=== PATIENT | male | born 1950 | race Two or more races ===

== ENCOUNTER 2017-04-26 17:10 | Emergency (ER) | payer MEDICARE, OTHER ==
[2017-04-26 17:32] VITALS: BP 142/79; PULSE 102; TEMP 98; BMI 30.4
--- NOTE | 2017-04-26 18:47 | PDOC ---
History of Present Illness - General Chief Complaint: Pain Stated Complaint: FALL/INJURY Time Seen by Provider: 04/26/17 18:36 History Source: Patient, Family Exam Limitations: No Limitations - History of Present Illness Initial Comments: 04/26/17 18:45 Refused coming to Hospital at the time Occurred: reports: other (4 days ago) Severity: reports: mild, moderate Pain Location: reports: upper extremity (left shoulder/ right knee ) Past History - Travel Traveled outside of the country in the last 30 days: No Close contact w/someone who was outside of country & ill: No - Past Medical History Allergies/Adverse Reactions: Allergies Allergy/AdvReac Type Severity Reaction Status Date / Time Penicillins Allergy Verified 04/26/17 17:31 Home Medications: Ambulatory Orders Aspirin [ASA -] 325 mg PO DAILY 08/20/14 Insulin Aspart Prot/Insuln Asp [Novolog Mix 70-30 Flexpen Syrn] 80 unit SQ AM Insulin Glargine,Hum.rec.anlog [Lantus Solostar PEN (NF)] 80 units SQ AM Metformin HCl [Glucophage] 1,000 mg PO BID 10/07/14 Diabetes: Yes HTN: Yes - Surgical History Abdominal Surgery: Yes (inguinal) Appendectomy: Yes Cholecystectomy: Yes - Family Disease History Family Disease History: Diabetes: Father - Psycho/Social/Smoking Cessation Hx Anxiety: No Suicidal Ideation: No Smoking History: Never smoked Number of Cigarettes Smoked Daily: 0 Information on smoking cessation initiated: No Hx Alcohol Use: No Substance Use Type: None Trauma Specific PMHX - Complaint Specific PMHX Back Injury: No Neck Injury: No Review of Systems - Review of Systems Able to Perform ROS?: Yes Is the patient limited Amharic proficient: Yes Constitutional: Yes: Symptoms Reported, See HPI. No: Malaise HEENTM: No: Symptoms Reported Respiratory: No: Symptoms reported : No: Symptoms Reported Musculoskeletal: Yes: Symptoms Reported, See HPI, Joint Pain, Joint Swelling ( right knee ), Other (left ) Integumentary: Yes: Symptoms Reported, See HPI, Bruising *Physical Exam - Vital Signs Last Vital Signs Temp Pulse Resp BP Pulse Ox 98 F 102 H 18 142/79 98 04/26/17 17:28 04/26/17 17:28 04/26/17 17:28 04/26/17 17:28 04/26/17 17:28 - Physical Exam General Appearance: Yes: Nourished, Appropriately Dressed, Apparent Distress, Mild Distress HEENT: positive: RUT, Normal ENT Inspection, TMs Normal, Pharynx Normal Neck: positive: Supple, Other. negative: Tender, Lymphadenopathy (R) Respiratory/Chest: positive: Lungs Clear, Normal Breath Sounds Cardiovascular: positive: Regular Rhythm Gastrointestinal/Abdominal: positive: Soft. negative: Tender Musculoskeletal: positive: Other (with grossly nodular knees, with a large hematoma to the medial aspect superior to well-healed scar extending from top of patella down past tibia plateau. Is fluctuant and consistent with a hematoma extends from superior patella and down to mid tibia. Has no crepitus or step- offs, no reproduced tenderness along the lateral aspect, patella was not mobile as nodular however without crepitus or step-offs. 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 X-ray negative for fracture however she reveals multiple areas of DJD and bone spurs. Right knee hematoma/contusion, Demario wrap applied, instructed ice and elevate, will follow-up with orthopedist *DC/Admit/Observation/Transfer Diagnosis at time of Disposition: Sprain of shoulder Qualifiers: Encounter type: initial encounter Shoulder sprain type: unspecified sprain Laterality: left Qualified Code(s): S43.402A - Unspecified sprain of left shoulder joint, initial encounter Traumatic hematoma of knee Qualifiers: Encounter type: initial encounter Laterality: right Qualified Code(s): S80.01XA - Contusion of right knee, initial encounter - Discharge Dispostion Disposition: HOME Condition at time of disposition: Stable Admit: No - Referrals Referrals: Yuko Pedersen MD [Primary Care Provider] - Willy Zacarias MD [Staff Physician] - - Patient Instructions Printed Discharge Instructions: DI for Shoulder Sprain, DI for Hematoma (Bruise ) Additional Instructions: Rest, ice to area on and off for 15 minutes 4-6 times a day Avoid heavy lifting or exercise until pain and swelling is resolved or until further directed Keep area highly elevated to reduce swelling Use splints/Demario wrap as directed Followup with orthopedist in one to 2 days if not improving, if significantly improved may wait one week for followup with orthopedist May use ibuprofen 2-200 mg tablets every 6 hours as needed for pain
== END 2017-04-26 19:34 | disposition home or self-care (01) ==
LOC: JERFT 17:10
DX: S43.402A Unspecified sprain of left shoulder joint, initial encounter (principal); S80.01XA Contusion of right knee, initial encounter; W19.XXXA Unspecified fall, initial encounter; Y93.89 Activity, other specified; Y92.89 Other specified places as the place of occurrence of the external cause; I10 Essential (primary) hypertension; E11.9 Type 2 diabetes mellitus without complications; Z79.4 Long term (current) use of insulin; Z79.84 Long term (current) use of oral hypoglycemic drugs
CPT/HCPCS: 73030-TC-LT; 73562-TC-RT; 99281-25

== ENCOUNTER 2017-07-19 08:49 | Inpatient (IN) | payer MEDICARE, OTHER ==
--- NOTE | 2017-07-19 09:31 | PDOC ---
Attending Attestation - Resident Resident Name: Dipesh Calix - ED Attending Attestation I have performed the following: I have examined & evaluated the patient, The case was reviewed & discussed with the resident, I agree w/resident's findings & plan, Exceptions are as noted - HPI HPI: 07/19/17 09:28 swelling - Physicial Exam PE: 07/19/17 09:28 vss, nad - Medical Decision Making 07/19/17 09:[address] Calix's assessment and plan
[2017-07-19 09:50] LABS: BASOPHIL 0.5 % (0-2.0); EOSINOPHIL 0.1 % (0-4.5); MCH 31.4 pg (25.7-33.7); MCHC 33.6 g/dl (32.0-35.9); MEAN CELL VOLUME 93.5 fl (80-96); MEAN PLT VOLUME 7.9 fl (7.5-11.1); NEUTROPHILS 81.2 % (42.8-82.8); PLATELET COUNT 337 K/MM3 (134-434)
[2017-07-19] MEDS ORDERED: SODIUM CHLORIDE 1,000 ML IV STA ×2 (10:05→14:00)
--- NOTE | 2017-07-19 10:05 | PDOC ---
History of Present Illness - General Chief Complaint: Edema Stated Complaint: SWOLLEN LEGS Time Seen by Provider: 07/19/17 08:55 History Source: Patient Exam Limitations: No Limitations - History of Present Illness Initial Comments: 07/19/17 10:01 67 y.o. M with pmh of htn, hld, dm, and TKR in 2003, presenting with right calf pain and edema. Patient states this started last night. Pain comes and goes, is 10/10, nonradiating, and sharp. Patient has no edema in left leg. Patient states he has had no recent travel, no hx of blood d/o, and does not smoke. Patient denies fever, chills, n/v/d/c, cp, sob, numbness/tingling. PSH: TKR, appendectomy, cholecystectomy, inguinal hernia All-PCN SH- denies PCP- Dr. Ceballos 07/19/17 10:04 Past History - Past Medical History Allergies/Adverse Reactions: Allergies Allergy/AdvReac Type Severity Reaction Status Date / Time Penicillins Allergy Severe Hives Verified 07/19/17 09:20 Home Medications: Ambulatory Orders Aspirin [ASA -] 325 mg PO DAILY 08/20/14 Insulin Aspart Prot/Insuln Asp [Novolog Mix 70-30 Flexpen Syrn] 0 unit SQ AM 12/17 Insulin Glargine,Hum.rec.anlog [Lantus Solostar PEN (NF)] 0 units SQ AM Metformin HCl [Glucophage] 1,000 mg PO BID 10/07/14 Diabetes: Yes HTN: Yes - Surgical History Abdominal Surgery: Yes (inguinal) Appendectomy: Yes Cholecystectomy: Yes - Family Disease History Family Disease History: Diabetes: Father - Suicide/Smoking/Psychosocial Hx Smoking History: Never smoked Number of Cigarettes Smoked Daily: 0 Hx Alcohol Use: No Drug/Substance Use Hx: No Substance Use Type: None Review of Systems - Review of Systems Able to Perform ROS?: Yes Comments:: 07/19/17 10:03 GENERAL/CONSTITUTIONAL: No fever or chills. No weakness. HEAD, EYES, EARS, NOSE AND THROAT: No change in vision. No ear pain or discharge. No sore throat. CARDIOVASCULAR: No chest pain or shortness of breath RESPIRATORY: No cough, wheezing, or hemoptysis. GASTROINTESTINAL: No nausea, vomiting, diarrhea or constipation. GENITOURINARY: No dysuria, frequency, or change in urination. MUSCULOSKELETAL: +RLE edema, +decreased ROM of right knee, +calf pain SKIN: No rash NEUROLOGIC: No headache, vertigo, loss of consciousness, or change in strength/ sensation. ENDOCRINE: No increased thirst. No abnormal weight change HEMATOLOGIC/LYMPHATIC: No anemia, easy bleeding, or history of blood clots. ALLERGIC/IMMUNOLOGIC: No hives or skin allergy. *Physical Exam - Vital Signs Last Vital Signs Temp Pulse Resp BP Pulse Ox 98.9 F 117 H 22 170/100 94 L 07/19/17 09:16 07/19/17 09:16 07/19/17 09:16 07/19/17 09:16 07/19/17 09:16 - Physical Exam Comments: 07/19/17 10:03 GENERAL: Awake, alert, and fully oriented, in no acute distress HEAD: No signs of trauma, normocephalic, atraumatic EYES: PERRLA, EOMI, sclera anicteric, conjunctiva clear ENT: Auricles normal inspection, hearing grossly normal, nares patent, oropharynx clear without exudates. Moist mucosa NECK: Normal ROM, supple, no lymphadenopathy, JVD, or masses LUNGS: No distress, speaks full sentences, clear to auscultation bilaterally HEART: Regular rate and rhythm, normal S1 and S2, no murmurs, rubs or gallops, peripheral pulses normal and equal bilaterally. ABDOMEN: Soft, nontender, normoactive bowel sounds. No guarding, no rebound. No masses EXTREMITIES: Normal inspection, Decreased Right knee range of motion, 1+ pitting edema. +calf pain, +aiyana's sign. No clubbing or cyanosis. NEUROLOGICAL: Cranial nerves II through XII grossly intact. Normal speech, normal gait, no focal sensorimotor deficits SKIN: Warm, Dry, normal turgor, no rashes or lesions noted. ED Treatment Course - LABORATORY CBC & Chemistry Diagram: 07/19/17 09:40 07/19/17 09:40 - ADDITIONAL ORDERS Additional order review: 07/19/17 09:40 RBC 4.52 MCV 93.5 MCHC 33.6 RDW 14.0 MPV 7.9 Neutrophils % 81.2 Lymphocytes % 9.9 D Monocytes % 8.3 Eosinophils % 0.1 D Basophils % 0.5 - RADIOLOGY Radiology Studies Ordered: Category Date Time Status DUPLEX VASCUL US-1 LEG [US] Stat Ultrasound 07/19/17 09:32 Ordered Medical Decision Making - Medical Decision Making 07/19/17 10:04 67 y.o. M with pmh of htn, hld, dm, and TKR in 2003, presenting with right calf pain and edema. Differential: acute dvt Plan: CBC, CMP, Right lower extremity duplex, PT/inr, PTT, EKG 07/19/17 10:37 wbc-13, glucose- 245 07/19/17 11:04 EKG- Sinus tachy, normal interval, normal axis, No ST changes suggestive of ischemia or infarct 07/19/17 11:59 Duplex- no acute evidence of DVT Right leg warm and pain upon hyperextension, will order bcx, vanc/zosyn, ua, urine culture, Call placed to Dr. Back. He recommends abx and cultures and to admit the patient. Microblog placed to hospitalist 07/19/17 13:01 Patient accepted by hospitalist *DC/Admit/Observation/Transfer Diagnosis at time of Disposition: Edema of right lower extremity - Discharge Dispostion Admit: Yes
[2017-07-19 10:14] LABS: ALBUMIN 3.7 g/dl (3.4-5.0); ANION GAP 7 (8-16); BILIRUBIN,TOTAL 0.9 mg/dL (0.2-1.0); CALCIUM 8.8 mg/dL (8.5-10.1); CO2 29 mmol/L (21-32); CREATININE 1.1 mg/dL (0.7-1.3); GLUCOSE,RANDOM 246 mg/dL (74-106); SGPT/ALT 27 U/L (12-78); TOT PROT 7.2 g/dl (6.4-8.2)
[2017-07-19 10:15] LABS: ALK PHOS 86 U/L (45-117)
[2017-07-19 10:21] LABS: PROTHROMBIN TIME (PATIENT) 11.3 SEC (9.98-11.88)
[2017-07-19 10:24] LABS: ACTIVATED PTT 33.5 SECONDS (26.9-34.4)
[2017-07-19 10:29] LABS: SGOT/AST 23 U/L (15-37)
--- NOTE | 2017-07-19 10:59 | EKG ---
Test Reason : Blood Pressure : / mmHG Vent. Rate : 112 BPM Atrial Rate : 112 BPM P-R Int : 156 ms QRS Dur : 074 ms QT Int : 330 ms P-R-T Axes : 057 023 044 degrees QTc Int : 450 ms SINUS TACHYCARDIA POSSIBLE ANTERIOR INFARCT , AGE UNDETERMINED ABNORMAL ECG WHEN COMPARED WITH ECG OF 03-FEB-2015 19:02, NO SIGNIFICANT CHANGE WAS FOUND Confirmed by JACQUI CHAPPELL MD ([id number]) on 07/19/2017 10:59:24 AM Referred By: Confirmed By:JACQUI CHAPPELL MD
[2017-07-19] MEDS ORDERED: VANCOMYCIN 1 GRAM (PRE-DOCKED) 1,000 MG/250 ML BAG IVPB ONE (12:40)
[2017-07-19] MEDS ORDERED: MEROPENEM 1 GM in DEXTROSE 5%-WATER - 100 ML IVPB ONE (12:40)
[2017-07-19] MEDS ORDERED: VANCOMYCIN 1 GRAM (PRE-DOCKED) 250 ML IVPB ONE (12:54)
--- NOTE | 2017-07-19 14:50 | HP ---
CHIEF COMPLAINT: leg pain PCP: 67 y/o m with PMH of HTN, DM, TKR knee replacement (2003), presented to the ED for 07/14, non-radiating, intermittent, sharp, calf pain and edema that started last night. Movement and touch aggravates the patient. Nothing alleviates it. Patient has no edema in left leg. Patient's sister states he's had a staph infection in 2004 on his neck. Patient states he has had no recent travel, no hx of blood d/o, and does not smoke. Patient denies fever, chills, n/ v/d/c, cp, sob, numbness/tingling. HISTORY OF PRESENT ILLNESS: ER course was notable for: (1) Sepsis: Lactic Acid: 3.4, 104 Pulse rate, Respiratory R 22 with source ( right leg) (2) Vanc/Zosyn Recent Travel: n/A PAST MEDICAL HISTORY: HTN, DM, B/L knee replacement (2003) PAST SURGICAL HISTORY: TKR, appendectomy, cholecystectomy, inguinal hernia Social History: Smoking:n/a Alcohol: occasional Drugs: n/A Family History: Allergies Penicillins Allergy (Severe, Verified 07/19/17 09:20) Hives HOME MEDICATIONS: Home Medications Medication Instructions Recorded Aspirin [ASA -] 325 mg PO DAILY 08/20/14 Insulin Aspart Prot/Insuln Asp 0 unit SQ AM 10/07/14 [Novolog Mix 70-30 Flexpen Syrn] Insulin Glargine,Hum.rec.anlog 0 units SQ AM 10/07/14 [Lantus Solostar PEN (NF)] Metformin HCl [Glucophage] 1,000 mg PO BID 10/07/14 REVIEW OF SYSTEMS CONSTITUTIONAL: Absent: fever, chills, diaphoresis, generalized weakness, malaise, loss of appetite, weight change HEENT: Absent: rhinorrhea, nasal congestion, throat pain, throat swelling, difficulty swallowing, mouth swelling, ear pain, eye pain, visual changes CARDIOVASCULAR: Absent: chest pain, syncope, palpitations, irregular heart rate, lightheadedness , peripheral edema RESPIRATORY: Absent: cough, shortness of breath, dyspnea with exertion, orthopnea, wheezing, stridor, hemoptysis GASTROINTESTINAL: Absent: abdominal pain, abdominal distension, nausea, vomiting, diarrhea, constipation, melena, hematochezia GENITOURINARY: Absent: dysuria, frequency, urgency, hesitancy, hematuria, flank pain, genital pain MUSCULOSKELETAL: +RLE edema, +decreased ROM of right knee, +calf pain Absent: myalgia, arthralgia, joint swelling, back pain, neck pain SKIN: Absent: rash, itching, pallor HEMATOLOGIC/IMMUNOLOGIC: Absent: easy bleeding, easy bruising, lymphadenopathy, frequent infections ENDOCRINE: Absent: unexplained weight gain, unexplained weight loss, heat intolerance, cold intolerance NEUROLOGIC: Absent: headache, focal weakness or paresthesias, dizziness, unsteady gait, seizure, mental status changes, bladder or bowel incontinence PSYCHIATRIC: Absent: anxiety, depression, suicidal or homicidal ideation, hallucinations. PHYSICAL EXAMINATION Vital Signs - 24 hr 07/19/17 13:52 Pulse Rate [ 102 H Left Radial] Respiratory 22 Rate Blood Pressure 134/91 [Left Arm] O2 Sat by Pulse 95 Oximetry (%) GENERAL: Awake, alert, and fully oriented, in no acute distress HEAD: No signs of trauma, normocephalic, atraumatic EYES: PERRLA, EOMI, sclera anicteric, conjunctiva clear ENT: Auricles normal inspection, hearing grossly normal, nares patent, oropharynx clear without exudates. Moist mucosa NECK: Normal ROM, supple, no lymphadenopathy, JVD, or masses LUNGS: No distress, speaks full sentences, clear to auscultation bilaterally HEART: Regular rate and rhythm, normal S1 and S2, no murmurs, rubs or gallops, peripheral pulses normal and equal bilaterally. ABDOMEN: Soft, nontender, normoactive bowel sounds. No guarding, no rebound. No masses EXTREMITIES: Decreased Right knee ROM, R knee tenderness with 1+ pitting edema and warmth compared to left leg. +aiyana's sign. NEUROLOGICAL: Cranial nerves II through XII grossly intact. Normal speech, normal gait ASSESSMENT/PLAN: #Sepsis secondary to RLE Cellulitis from possible septic joint. -history of knee replacement 2004 -history of staph infection -Tachy 104, RR 22 -LA: 3.4 -duplex negative - ID consulted -Vanc/Zosyn In ER -Started Meropenem - MRSA screen -Ortho consulted #HTN -will monitor -waiting for family member to bring med list #DVT PPX: -Hep SQ 5000 TID Visit type - Emergency Visit Emergency Visit: Yes ED Registration Date: 07/19/17 Care time: The patient presented to the Emergency Department on the above date and was hospitalized for further evaluation of their emergent condition. - New Patient This patient is new to me today: Yes Date on this admission: 07/19/17 - Critical Care Critical Care patient: No
--- NOTE | 2017-07-19 15:03 | PN ---
Teaching Attending Note Name of Resident: Kalpana John ATTENDING PHYSICIAN STATEMENT I saw and evaluated the patient. I reviewed the resident's note and discussed the case with the resident. I agree with the resident's findings and plan as documented. SUBJECTIVE: OBJECTIVE: patient is complaining of tenderness on the lower ext s1 and S2 RRR no abdominal distention lungs CTA with good air entry ASSESSMENT AND PLAN: admit the patient fo cellulitis of the lower ext ID consultation for antibiotic stewardship patient has hx of MRSA in 2014 DM: - ISS - hold oral medication BP: - c/w home medication Cholesterol - obtain TSH - obtain lipid panel - start home medication - orthopedic eveluation rehab evaluation
[2017-07-19] MEDS ORDERED: HEPARIN NA (PORCINE) 5,000 UNITS/ML 1ML VIAL ONE (15:06)
[2017-07-19] MEDS: HEPARIN NA (PORCINE) 5,000 UNITS/ML 1ML VIAL SQ SCH (15:10)
[2017-07-19] MEDS ORDERED: INSULIN SLIDING SCALE (NOVOLOG) 1 VIAL SQ SCH (16:30)
[2017-07-19] MEDS: SODIUM CHLORIDE 1,000 ML IV SCH (16:45)
[2017-07-19] MEDS ORDERED: INSULIN REGULAR HUMAN 100 UNITS/ML *VIAL ONE (18:09)
[2017-07-19] MEDS: INSULIN SLIDING SCALE (NOVOLOG) 1 VIAL SQ SCH (18:10)
--- NOTE | 2017-07-19 18:59 | CON.ID ---
Consult Consult Specialty:: INFECTIOUS DISEASE Reason for Consultation:: Rt LE pain/swelling - History of Present Illness History of Present Illness: This is a 67 y.o. male with history of IDDM, HLD, HTN, Lt TKR in 1998 and Rt TKR in 2003 presenting with complaints of RLE tenderness that began a few days ago but became severe last night. Daughter served as health insurance specialist. Describes pain prevents him from walking and is 10/10 intensity. Noted swelling and tenderness in calf and Rt knee but no fever/chills. Venous doppler negative for DVT.Pt denies any recent fall/trauma, travel. Has a history of posterior neck abscess due to "staph infection" in the past. Denies any other specific complaints. Has a Penicillin allergy (described as rash) but received a dose of Meropenem in the ER and has not had any sign of allergic reaction. - History Source History Provided By: Family Member Limitations to Obtaining History: No Limitations - Past Medical History ARMATURE CONNECTOR: No: Alzheimer's, CVA, Dementia, Migraine, Multiple Sclerosis, Peripheral Neuropathy, Parkinson's, Seizure, Syncope, TIA, Vertigo, Other Cardio/Vascular: Yes: HTN Pulmonary: No: Asthma, Bronchitis, Cancer, COPD, O2 Dependent, Pneumonia, Previously Intubated, Pulmonary Embolus, Pulmonary Fibrosis, Sleep Apnea, Other Gastrointestinal: No: Ascites, Cancer, Constipation, Crohn's Disease, Diverticulitis, Diverticulosis, Esophageal Varices, Gastritis, GERD, GI Bleed, Hemorrhoids, Hiatal Hernia, Inflamatory Bowel Disease, Irritable Bowel Disease, Pancreatitis, Peptic Ulcer Disease, Ulcerative Colitis, Other Hepatobiliary: Yes: Cholecystitis (s/p cholecystectomy, appendectomy, inguinal hernia) Renal/: No: Renal Failure, Renal Inusuff, BPH, Cancer, Hematuria, Hemodialysis , Neurogenic Bladder, Renal Calculi, UTI, Other Heme/Onc: No: Anemia, B12 Deficiency, Bleeding Disorder, Cancer, Current Chemotherapy, Current Radiation Therapy, Hemochromatosis, Hypercoaguable State, Myeloproliferative Synd, Sickle Cell Disease, Sickle Cell Trait, Thrombocytopenia, Other Infectious Disease: No: AIDS, C-Diff, Herpes Zoster, HIV, MRSA, STD's, Tuberculosis, VREF, Other Psych: No: Addictions, Anxiety, Bipolar, Depression, Panic, Psychosis, Schizophrenia, Other Musculoskeletal: Yes: Osteoarthritis (s/p b/l TKR) Rheumatology: No: Fibromyalgia, Gout, Lupus, Rheumatoid Arthritis, Sarcoidosis, Vasculitis, Other ENT: No: Allergic Rhinitis, Sinusitis, Other Endocrine: Yes: Diabetes Mellitus Dermatology: No: Basal Cell, Cellulitis, Eczema, Melanoma, Psoriasis, Squamous Cell, Other - Past Surgical History Past Surgical History: Yes: Appendectomy, Cholecystectomy, Hernia Repair - Alcohol/Substance Use Hx Alcohol Use: No History of Substance Use: reports: None - Smoking History Smoking history: Never smoked Aproximately how many cigarettes per day: 0 - Social History History of Recent Travel: No Home Medications - Allergies Allergies/Adverse Reactions: Allergies Allergy/AdvReac Type Severity Reaction Status Date / Time Penicillins Allergy Severe Hives Verified 07/19/17 09:20 - Home Medications Home Medications: Ambulatory Orders Aspirin [ASA -] 325 mg PO DAILY 08/20/14 Insulin Glargine,Hum.rec.anlog [Lantus Solostar PEN (NF)] 0 units SQ AM Metformin HCl [Glucophage] 1,000 mg PO BID 10/07/14 Amlodipine Besylate 10 mg PO DAILY 07/19/17 Atorvastatin Ca [Lipitor] 40 mg PO HS 07/19/17 Lisinopril [Prinivil -] 40 mg PO DAILY 07/19/17 Sitagliptin Phosphate [Januvia] 100 mg PO DAILY 07/19/17 Family Disease History - Family Disease History Family Disease History: Diabetes: Mother Review of Systems - Review of Systems Constitutional: reports: Other (dizziness) Eyes: reports: No Symptoms HENT: reports: No Symptoms Neck: reports: No Symptoms Cardiovascular: reports: No Symptoms Respiratory: reports: No Symptoms Gastrointestinal: reports: No Symptoms Genitourinary: reports: No Symptoms Musculoskeletal: reports: Decreased ROM, Extremity Pain (Rt calf/knee pain and swelling), Joint Swelling Integumentary: reports: No Symptoms Neurological: reports: No Symptoms Endocrine: reports: No Symptoms Hematology/Lymphatic: reports: No Symptoms Psychiatric: reports: No Symptoms Pain Intensity: 10 Physical Exam Vital Signs: Vital Signs Temperature 98.9 F 07/19/17 09:16 Pulse Rate 102 H 07/19/17 13:52 Respiratory Rate 22 07/19/17 13:52 Blood Pressure 134/91 07/19/17 13:52 O2 Sat by Pulse Oximetry (%) 95 07/19/17 13:53 Constitutional: Yes: No Distress HENT: Yes: Atraumatic Neck: Yes: Supple Cardiovascular: Yes: Tachycardia Respiratory: Yes: CTA Bilaterally Gastrointestinal: Yes: Normal Bowel Sounds, Soft Renal/: Yes: WNL Musculoskeletal: Yes: Joint Swelling Extremities: Yes: Calf Tenderness, Other (B/L TKR, RT calf and knee swelling, mild erythema) Edema: Yes (RLE) Integumentary: Yes: WNL Neurological: Yes: Alert, Oriented Labs: Laboratory Tests 07/19/17 07/19/17 07/19/17 09:40 09:40 09:40 WBC 13.0 H D RBC 4.52 Hgb 14.2 Hct 42.3 MCV 93.5 MCH 31.4 MCHC 33.6 RDW 14.0 Plt Count 337 D MPV 7.9 Neutrophils % 81.2 Lymphocytes % 9.9 D Monocytes % 8.3 Eosinophils % 0.1 D Basophils % 0.5 ESR PT with INR 11.30 INR 1.00 PTT (Actin FS) 33.5 Sodium 135 L Potassium 4.8 D Chloride 99 Carbon Dioxide 29 Anion Gap 7 L BUN 15 D Creatinine 1.1 D Creat Clearance w eGFR > 60 Random Glucose 246 H Lactic Acid Calcium 8.8 Total Bilirubin 0.9 D AST 23 D ALT 27 Alkaline Phosphatase 86 D C-Reactive Protein Total Protein 7.2 Albumin 3.7 07/19/17 07/19/17 07/19/17 12:28 12:28 12:28 WBC RBC Hgb Hct MCV MCH MCHC RDW Plt Count MPV Neutrophils % Lymphocytes % Monocytes % Eosinophils % Basophils % ESR 0 PT with INR INR PTT (Actin FS) Sodium Potassium Chloride Carbon Dioxide Anion Gap BUN Creatinine Creat Clearance w eGFR Random Glucose Lactic Acid 3.4 H* Calcium Total Bilirubin AST ALT Alkaline Phosphatase C-Reactive Protein 0.8 H Total Protein Albumin 07/19/17 17:15 WBC RBC Hgb Hct MCV MCH MCHC RDW Plt Count MPV Neutrophils % Lymphocytes % Monocytes % Eosinophils % Basophils % ESR PT with INR INR PTT (Actin FS) Sodium Potassium Chloride Carbon Dioxide Anion Gap BUN Creatinine Creat Clearance w eGFR Random Glucose Lactic Acid 2.1 H* Calcium Total Bilirubin AST ALT Alkaline Phosphatase C-Reactive Protein Total Protein Albumin Imaging - Results Ultrasound: Report Reviewed (Rt venous doppler neg for DVT) Problem List - Problems (1) Leg edema, right Code(s): R60.0 - LOCALIZED EDEMA Assessment/Plan 67 y.o. male with IDDM, HTN, HLD, b/l TKR with Rt lower leg pain and swelling, tachycardia, leukocytosis, elevated lactic acid Sepsis Leukocytosis uncontrolled DM r/o Rt knee Septic joint -- Meropenem 1 gr IV Q8h, Vancomycin 1 Gr IV Q12h empirically -- suggest Orthopedic evaluation -- CT scan of RLE -- follow up Blood culture results, monitor wbc/renal function -- monitor for signs of allergic reaction (tolerated 1 dose of Meropenem)
[2017-07-19 20:05] LABS: URINE APPEARANCE CLEAR; URINE BILIRUBIN NEGATIVE (NEGATIVE); URINE BLOOD NEGATIVE (NEGATIVE); URINE COLOR STRAW; URINE GLUCOSE (UA) 2+ (NEGATIVE); URINE KETONE NEGATIVE (NEGATIVE); URINE NITRITE NEGATIVE (NEGATIVE); URINE PROTEIN NEGATIVE (NEGATIVE); URINE UROBILINOGEN NEGATIVE mg/dL (0.2-1.0)
[2017-07-19] MEDS ORDERED: MEROPENEM 1 GM in DEXTROSE 5%-WATER - 100 ML IVPB SCH (22:00)
[2017-07-19 22:05] LABS: URINE LEUK ESTERASE Negative (NEGATIVE)
[2017-07-20] MEDS ORDERED: HEPARIN NA (PORCINE) 5,000 UNITS/ML 1ML VIAL ONE ×2 (00:43→06:25)
[2017-07-20] MEDS ORDERED: VANCOMYCIN 1 GRAM (PRE-DOCKED) 250 ML IVPB ONE (00:43)
[2017-07-20] MEDS: HEPARIN NA (PORCINE) 5,000 UNITS/ML 1ML VIAL SQ SCH ×4 (00:58→22:44)
[2017-07-20] MEDS: VANCOMYCIN 1,000 MG in DEXTROSE 5%-WATER - 250 ML IVPB SCH ×3 (00:59→23:36)
[2017-07-20] MEDS: INSULIN SLIDING SCALE (NOVOLOG) 1 VIAL SQ SCH ×5 (00:59→22:45)
[2017-07-20] MEDS ORDERED: MEROPENEM 1 GM in DEXTROSE 5%-WATER - 100 ML IVPB SCH (02:00)
[2017-07-20 07:43] LABS: MCH 31.7 pg (25.7-33.7); MCHC 33.3 g/dl (32.0-35.9); MEAN CELL VOLUME 95.2 fl (80-96); MEAN PLT VOLUME 7.9 fl (7.5-11.1); PLATELET COUNT 305 K/MM3 (134-434); RDW 14.2 % (11.9-15.9); WHITE BLOOD COUNT 9.6 K/mm3 (4.0-10.0)
[2017-07-20 08:12] LABS: ANION GAP 7 (8-16); CALCIUM 8.1 mg/dL (8.5-10.1); CO2 28 mmol/L (21-32); CREATININE 0.9 mg/dL (0.7-1.3); GLUCOSE,RANDOM 205 mg/dL (74-106); MAGNESIUM 2.4 mg/dL (1.8-2.4); PHOSPHOROUS 2.4 mg/dL (2.5-4.9)
[2017-07-20 08:21] LABS: THYROID STIMULATING HORMONE 1.22 uIU/ml (0.358-3.74)
[2017-07-20 08:51] LABS: CHOLESTEROL 194 mg/dL (50-200)
--- NOTE | 2017-07-20 09:12 | CON.ORTH ---
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: No: Alzheimer's, CVA, Dementia, Migraine, Multiple Sclerosis, Peripheral Neuropathy, Parkinson's, Seizure, Syncope, TIA, Vertigo, Other Cardio/Vascular: Yes: HTN Pulmonary: No: Asthma, Bronchitis, Cancer, COPD, O2 Dependent, Pneumonia, Previously Intubated, Pulmonary Embolus, Pulmonary Fibrosis, Sleep Apnea, Other Gastrointestinal: No: Ascites, Cancer, Constipation, Crohn's Disease, Diverticulitis, Diverticulosis, Esophageal Varices, Gastritis, GERD, GI Bleed, Hemorrhoids, Hiatal Hernia, Inflamatory Bowel Disease, Irritable Bowel Disease, Pancreatitis, Peptic Ulcer Disease, Ulcerative Colitis, Other Hepatobiliary: Yes: Cholecystitis (s/p cholecystectomy, appendectomy, inguinal hernia) Renal/: No: Renal Failure, Renal Inusuff, BPH, Cancer, Hematuria, Hemodialysis , Neurogenic Bladder, Renal Calculi, UTI, Other Infectious Disease: No: AIDS, C-Diff, Herpes Zoster, HIV, MRSA, STD's, Tuberculosis, VREF, Other Psych: No: Addictions, Anxiety, Bipolar, Depression, Panic, Psychosis, Schizophrenia, Other Musculoskeletal: Yes: Osteoarthritis (s/p b/l TKR) Rheumatology: No: Fibromyalgia, Gout, Lupus, Rheumatoid Arthritis, Sarcoidosis, Vasculitis, Other ENT: No: Allergic Rhinitis, Sinusitis, Other Endocrine: Yes: Diabetes Mellitus Dermatology: No: Basal Cell, Cellulitis, Eczema, Melanoma, Psoriasis, Squamous Cell, Other - Past Surgical History Past Surgical History: Yes: Appendectomy, Cholecystectomy, Hernia Repair - Alcohol/Substance Use Hx Alcohol Use: No History of Substance Use: reports: None - Smoking History Smoking history: Never smoked Aproximately how many cigarettes per day: 0 - Social History History of Recent Travel: No Home Medications - Allergies Allergies/Adverse Reactions: Allergies Allergy/AdvReac Type Severity Reaction Status Date / Time Penicillins Allergy Severe Hives Verified 07/19/17 09:20 - Home Medications Home Medications: Ambulatory Orders Aspirin [ASA -] 325 mg PO DAILY 08/20/14 Insulin Glargine,Hum.rec.anlog [Lantus Solostar PEN (NF)] 0 units SQ AM Metformin HCl [Glucophage] 1,000 mg PO BID 10/07/14 Amlodipine Besylate 10 mg PO DAILY 07/19/17 Atorvastatin Ca [Lipitor] 40 mg PO HS 07/19/17 Lisinopril [Prinivil -] 40 mg PO DAILY 07/19/17 Sitagliptin Phosphate [Januvia] 100 mg PO DAILY 07/19/17 Family Disease History - Family Disease History Family Disease History: Diabetes: Mother Physical Exam for Ortho Vital Signs: Vital Signs Temperature 98.6 F 07/20/17 07:41 Pulse Rate 97 H 07/20/17 07:41 Respiratory Rate 18 07/20/17 05:46 Blood Pressure 140/74 07/20/17 07:41 O2 Sat by Pulse Oximetry (%) 97 07/20/17 07:41 Labs: CBC, BMP 07/20/17 06:00 07/20/17 06:00 INR, PTT INR 1.00 (0.82-1.09) 07/19/17 09:40 - Lower Extremity Knee: Yes: Right, Other (right knee- well healed surgical incision,1+ effusion, nontender, ROM 5-100,nvi Right LE-calf slightly erythematous and swollen, +ttp over calf, nvi) Imaging - Results Ultrasound: Report Reviewed Assessment/Plan 67 y.o. male with history of IDDM, HLD, HTN, Lt TKR in 1998 and Rt TKR in 2003 presenting with complaints of RLE tenderness that began a few days ago but became severe last night. Daughter served as block placer. Describes pain prevents him from walking and is 10/10 intensity. Noted swelling and tenderness in calf but no fever/chills. Venous doppler negative for DVT.Pt denies any recent fall/trauma, travel. a/p- Right LE cellulitis Right knee is not septic at the present time IV abx per ID xrays of right knee ordered elevation of Right LE wbat, oob will follow d/w Dr. Kline
[2017-07-20] MEDS: LISINOPRIL 20 MG TABLET (FP) PO SCH (09:40)
[2017-07-20] MEDS: amLODIPine BESYLATE 10 MG TABLET (FP) PO SCH (09:40)
[2017-07-20] MEDS: ASPIRIN 325 MG TABLET PO SCH (09:40)
[2017-07-20 11:32] VITALS: BMI 17.7
[2017-07-20] MEDS ORDERED: ACETAMINOPHEN 325 MG TABLET (FP) ONE ×2 (11:33→20:16)
[2017-07-20] MEDS: ACETAMINOPHEN 325 MG TABLET (FP) PO PRN ×2 (11:35→20:24)
--- NOTE | 2017-07-20 12:47 | PN ---
Teaching Attending Note Name of Resident: Fannie Atkins ATTENDING PHYSICIAN STATEMENT I saw and evaluated the patient. I reviewed the resident's note and discussed the case with the resident. I agree with the resident's findings and plan as documented. SUBJECTIVE: c/o RLE swelling and pain x 2 days . denies fever at home. OBJECTIVE: Vital Signs Temperature 98.4 F 07/20/17 11:15 Pulse Rate 97 H 07/20/17 11:15 Respiratory Rate 20 07/20/17 11:15 Blood Pressure 142/73 07/20/17 11:15 O2 Sat by Pulse Oximetry (%) 97 07/20/17 07:41 EXT - RLE swelling and tenderness to palpation around the area of R j Knee joint and passive ROM CBC, BMP 07/20/17 06:00 07/20/17 06:00 CMP Sodium 138 mmol/L (136-145) 07/20/17 06:00 Potassium 4.5 mmol/L (3.5-5.1) 07/20/17 06:00 Chloride 103 mmol/L (98-107) 07/20/17 06:00 Carbon Dioxide 28 mmol/L (21-32) 07/20/17 06:00 Anion Gap 7 (8-16) L 07/20/17 06:00 BUN 11 mg/dL (7-18) D 07/20/17 06:00 Creatinine 0.9 mg/dL (0.7-1.3) 07/20/17 06:00 Creat Clearance w eGFR > 60 (>60) 07/19/17 09:40 POC Glucometer 200.23019 UNITS (()) 07/20/17 00:57 Random Glucose 205 mg/dL (74-106) H 07/20/17 06:00 Hemoglobin A1c % 8.8 % (4.8-6.0) H 07/20/17 06:00 Lactic Acid 0.9 mmol/L (0.4-2.0) 07/20/17 00:40 Calcium 8.1 mg/dL (8.5-10.1) L 07/20/17 06:00 Phosphorus 2.4 mg/dL (2.5-4.9) L 07/20/17 06:00 Magnesium 2.4 mg/dL (1.8-2.4) 07/20/17 06:00 Total Bilirubin 0.9 mg/dL (0.2-1.0) D 07/19/17 09:40 AST 23 U/L (15-37) D 07/19/17 09:40 ALT 27 U/L (12-78) 07/19/17 09:40 Alkaline Phosphatase 86 U/L (45-117) D 07/19/17 09:40 C-Reactive Protein 0.8 MG/DL (0.00-0.3) H 07/19/17 12:28 Total Protein 7.2 g/dl (6.4-8.2) 07/19/17 09:40 Albumin 3.7 g/dl (3.4-5.0) 07/19/17 09:40 Triglycerides 139 mg/dL (35-160) 07/20/17 06:00 Cholesterol 194 mg/dL (50-200) 07/20/17 06:00 Total LDL Cholesterol 121 mg/dL (5-100) H 07/20/17 06:00 HDL Cholesterol 50 mg/dL (40-60) 07/20/17 06:00 TSH 1.22 uIU/ml (0.358-3.74) 07/20/17 06:00 US LE no DVT ASSESSMENT : 1. RLE cellulitis - in a patient with history of R knee hardware and MRSA. Need to rule out bone involvement 2 . Sepsis 2/2 # 1 - improved 3. Uncontrolled DM 4. Hyperlipidemia PLAN : - IVAB - pain control - Insulin - MRSA precautions
[2017-07-20] MEDS ORDERED: ACETAMINOPHEN 160 MG/5 ML 473ML BULK BOTTLE ONE (12:54)
--- NOTE | 2017-07-20 15:03 | PN ---
Progress Note, Physician History of Present Illness: patient continues to have pain knee unable to extend completely pain while movement erythema present - Current Medication List Current Medications: Active Medications Acetaminophen (Tylenol -) 650 mg PO Q4H PRN PRN Reason: FEVER OR PAIN Last Admin: 07/20/17 11:35 Dose: 650 mg Amlodipine Besylate (Norvasc -) 10 mg PO DAILY [facility] Last Admin: 07/20/17 09:40 Dose: 10 mg Aspirin (Asa -) 325 mg PO DAILY [facility] Last Admin: 07/20/17 09:40 Dose: 325 mg Atorvastatin Calcium (Lipitor -) 40 mg PO HS [facility] Heparin Sodium (Porcine) (Heparin -) 5,000 unit SQ TID [facility] Last Admin: 07/20/17 13:15 Dose: 5,000 unit Sodium Chloride (Normal Saline -) 1,000 mls @ 100 mls/hr IV ASDIR [facility] Last Admin: 07/19/17 16:45 Dose: 100 mls/hr Vancomycin HCl 1,000 mg/ (Dextrose) 250 mls @ 250 mls/hr IVPB BID ZAYRA PRN Reason: Protocol Last Admin: 07/20/17 09:33 Dose: 250 mls/hr Meropenem 1 gm/ Dextrose 100 mls @ 200 mls/hr IVPB Q8H-IV ZAYRA PRN Reason: Protocol Influenza Virus Vaccine Quadrival (Flulaval Quad [id number]) 60 mcg IM .ONCE ONE Stop: 07/20/17 11:25 Insulin Aspart (Novolog Vial Sliding Scale -) 1 vial SQ ACHS [facility] PRN Reason: Protocol Last Admin: 07/20/17 12:54 Dose: 4 units Lisinopril (Prinivil) 40 mg PO DAILY [facility] Last Admin: 07/20/17 09:40 Dose: 40 mg Pneumococcal 13-Valent Conj Vacc (Prevnar 13 Syringe -) 0.5 ml IM .ONCE ONE Stop: 07/20/17 11:26 - Objective Vital Signs: Vital Signs Temperature 98.4 F 07/20/17 11:15 Pulse Rate 97 H 07/20/17 11:15 Respiratory Rate 20 07/20/17 11:15 Blood Pressure 142/73 07/20/17 11:15 O2 Sat by Pulse Oximetry (%) 97 07/20/17 07:41 Constitutional: Yes: Calm, Mild Distress Cardiovascular: Yes: Regular Rate and Rhythm Respiratory: Yes: Regular, CTA Bilaterally Gastrointestinal: Yes: Normal Bowel Sounds, Soft Musculoskeletal: Yes: Other Extremities: Yes: Erythema (rt knee joint extending to the leg), Other Neurological: Yes: Alert, Oriented Psychiatric: Yes: Alert, Oriented Labs: CBC, BMP 07/20/17 06:00 07/20/17 06:00 INR, PTT INR 1.00 (0.82-1.09) 07/19/17 09:40 Assessment/Plan Problem List - Problems (1) Leg edema, right Code(s): R60.0 - LOCALIZED EDEMA cellulitits of the rt ;eg we need to know the hardware situation also we need to know if there is deep seated infection plan continue abx get ct scan of the leg to see if the infection and hardware is intact with the bone rest as per chandlerry team
--- NOTE | 2017-07-20 16:35 | PN ---
Physical Exam: SUBJECTIVE: Patient seen and examined. No acute events overnight. Offers no new complaints today. He says his leg still hurts him and has not got better. OBJECTIVE: Vital Signs Period Temp Pulse Resp BP Sys/Jasmine Pulse Ox Last 24 Hr 98.4 F-98.8 F 96-199 18-20 133-198/73-93 95-98 GENERAL: Awake, alert, and fully oriented, in no acute distress HEAD: No signs of trauma, normocephalic, atraumatic EYES: PERRLA, EOMI, sclera anicteric, conjunctiva clear ENT: Auricles normal inspection, hearing grossly normal, nares patent, oropharynx clear without exudates. Moist mucosa NECK: Normal ROM, supple, no lymphadenopathy, JVD, or masses LUNGS: No distress, speaks full sentences, clear to auscultation bilaterally HEART: Regular rate and rhythm, normal S1 and S2, no murmurs, rubs or gallops, peripheral pulses normal and equal bilaterally. ABDOMEN: Soft, nontender, normoactive bowel sounds. No guarding, no rebound. No masses EXTREMITIES: Decreased Right knee ROM, R knee tenderness with 1+ pitting edema and warmth compared to left leg. NEUROLOGICAL: Cranial nerves II through XII grossly intact. Normal speech, normal gait Laboratory Results - last 24 hr 07/19/17 07/19/17 07/19/17 16:42 17:15 19:50 WBC RBC Hgb Hct MCV MCH MCHC RDW Plt Count MPV Sodium Potassium Chloride Carbon Dioxide Anion Gap BUN Creatinine POC Glucometer 223.04589 Random Glucose Hemoglobin A1c % Lactic Acid 2.1 H* Calcium Phosphorus Magnesium Triglycerides Cholesterol Total LDL Cholesterol HDL Cholesterol TSH Urine Color Straw Urine Appearance Clear Urine pH 6.0 Ur Specific Dale 1.010 Urine Protein Negative Urine Glucose (UA) 2+ H Urine Ketones Negative Urine Blood Negative Urine Nitrite Negative Urine Bilirubin Negative Urine Urobilinogen Negative Ur Leukocyte Esterase Negative 07/20/17 07/20/17 07/20/17 00:40 00:57 06:00 WBC 9.6 RBC 4.08 Hgb 12.9 Hct 38.9 MCV 95.2 MCH 31.7 MCHC 33.3 RDW 14.2 Plt Count 305 MPV 7.9 Sodium Potassium Chloride Carbon Dioxide Anion Gap BUN Creatinine POC Glucometer 200.70941 Random Glucose Hemoglobin A1c % Lactic Acid 0.9 Calcium Phosphorus Magnesium Triglycerides Cholesterol Total LDL Cholesterol HDL Cholesterol TSH Urine Color Urine Appearance Urine pH Ur Specific Dale Urine Protein Urine Glucose (UA) Urine Ketones Urine Blood Urine Nitrite Urine Bilirubin Urine Urobilinogen Ur Leukocyte Esterase 07/20/17 07/20/17 07/20/17 06:00 06:00 06:00 WBC RBC Hgb Hct MCV MCH MCHC RDW Plt Count MPV Sodium 138 Potassium 4.5 Chloride 103 Carbon Dioxide 28 Anion Gap 7 L BUN 11 D Creatinine 0.9 POC Glucometer Random Glucose 205 H Hemoglobin A1c % 8.8 H Lactic Acid Calcium 8.1 L Phosphorus 2.4 L Magnesium 2.4 Triglycerides 139 Cholesterol 194 Total LDL Cholesterol 121 H HDL Cholesterol 50 TSH 1.22 Urine Color Urine Appearance Urine pH Ur Specific Dale Urine Protein Urine Glucose (UA) Urine Ketones Urine Blood Urine Nitrite Urine Bilirubin Urine Urobilinogen Ur Leukocyte Esterase 07/20/17 12:52 WBC RBC Hgb Hct MCV MCH MCHC RDW Plt Count MPV Sodium Potassium Chloride Carbon Dioxide Anion Gap BUN Creatinine POC Glucometer 210 Random Glucose Hemoglobin A1c % Lactic Acid Calcium Phosphorus Magnesium Triglycerides Cholesterol Total LDL Cholesterol HDL Cholesterol TSH Urine Color Urine Appearance Urine pH Ur Specific Dale Urine Protein Urine Glucose (UA) Urine Ketones Urine Blood Urine Nitrite Urine Bilirubin Urine Urobilinogen Ur Leukocyte Esterase Active Medications Generic Name Dose Route Start Last Admin Trade Name Daylin PRN Reason Stop Dose Admin Acetaminophen 650 mg 07/19/17 16:40 07/20/17 11:35 Tylenol - PO 650 mg Q4H PRN Administration FEVER OR PAIN Amlodipine Besylate 10 mg 07/20/17 10:00 07/20/17 09:40 Norvasc - PO 10 mg DAILY ZAYRA Administration Aspirin 325 mg 07/20/17 10:00 07/20/17 09:40 Asa - PO 325 mg DAILY ZAYRA Administration Atorvastatin Calcium 40 mg 07/20/17 22:00 Lipitor - PO HS ZAYRA Heparin Sodium (Porcine) 5,000 unit 07/19/17 14:30 07/20/17 13:15 Heparin - SQ 5,000 unit TID ZAYRA Administration Sodium Chloride 1,000 mls @ 100 mls/hr 07/19/17 16:45 07/19/17 16:45 Normal Saline - IV 100 mls/hr ASDIR ZAYRA Administration Vancomycin HCl 1,000 mg/ 250 mls @ 250 mls/hr 07/19/17 22:00 07/20/17 09:33 Dextrose IVPB 250 mls/hr BID ZAYRA Administration Protocol Meropenem 1 gm/ Dextrose 100 mls @ 200 mls/hr 07/20/17 18:00 IVPB Q8H-IV ZAYRA Protocol Influenza Virus Vaccine Quadrival 60 mcg 07/20/17 11:24 Flulaval Quad [id number] IM 07/20/17 11:25 .ONCE ONE Insulin Aspart 1 vial 07/19/17 22:00 07/20/17 12:54 Novolog Vial Sliding Scale - SQ 4 units ACHS ZAYRA Administration Protocol Lisinopril 40 mg 07/20/17 10:00 07/20/17 09:40 Prinivil PO 40 mg DAILY ZAYRA Administration Pneumococcal 13-Valent Conj Vacc 0.5 ml 07/20/17 11:25 Prevnar 13 Syringe - IM 07/20/17 11:26 .ONCE ONE ASSESSMENT/PLAN: #Sepsis secondary to RLE Cellulitis -Lt TKR in 1998 and Rt TKR in 2003 -history of posterior neck staph infection (2014) -duplex negative -Continue Meropenem , Vanc (abx day 2) - MRSA screen -Right knee is not septic at the present time per Ortho -FU Knee xRay and Lower extremity CT #DM -insulin sliding scale -A1c 8.8 -will monitor #HTN/CAD -will monitor -continue home Norvasc 10, Lisinopril 40 -contine ASA, Lipitor 40 #DVT PPX: -Hep SQ 5000 TID Visit type - Emergency Visit Emergency Visit: Yes ED Registration Date: 07/19/17 Care time: The patient presented to the Emergency Department on the above date and was hospitalized for further evaluation of their emergent condition. - New Patient This patient is new to me today: No - Critical Care Critical Care patient: No
[2017-07-20] MEDS: SODIUM CHLORIDE 1,000 ML IV SCH ×2 (17:43→22:52)
[2017-07-20] MEDS ORDERED: INSULIN (NOVOLOG) ASPART 100 UNITS/ML 10ML VIAL ONE (17:59)
[2017-07-20] MEDS: MEROPENEM 1 GM in DEXTROSE 5%-WATER - 100 ML IVPB SCH (20:45)
[2017-07-20] MEDS ORDERED: VANCOMYCIN 1 GRAM (PRE-DOCKED) 250 ML IVPB SCH (22:45)
[2017-07-20] MEDS: ATORVASTATIN CA 40 MG TABLET (FP) PO SCH (22:45)
[2017-07-21] MEDS: oxyCODONE HCL 5 MG TABLET PO PRN ×3 (00:36→22:25)
[2017-07-21] MEDS: ACETAMINOPHEN 325 MG TABLET (FP) PO PRN ×3 (00:36→22:26)
[2017-07-21] MEDS: MEROPENEM 1 GM in DEXTROSE 5%-WATER - 100 ML IVPB SCH ×3 (02:12→17:46)
[2017-07-21] MEDS: HEPARIN NA (PORCINE) 5,000 UNITS/ML 1ML VIAL SQ SCH ×3 (06:38→22:27)
[2017-07-21] MEDS: INSULIN SLIDING SCALE (NOVOLOG) 1 VIAL SQ SCH ×4 (06:39→22:27)
--- NOTE | 2017-07-21 09:56 | PN ---
Progress Note, Physician History of Present Illness: patient doing well no complaints except leg still with pain - Current Medication List Current Medications: Active Medications Acetaminophen (Tylenol -) 650 mg PO Q6H PRN PRN Reason: FEVER OR PAIN Acetaminophen (Tylenol -) 325 mg PO Q6H PRN PRN Reason: PAIN LEVEL 6-10 Last Admin: 07/21/17 08:26 Dose: 325 mg Amlodipine Besylate (Norvasc -) 10 mg PO DAILY [facility] Last Admin: 07/20/17 09:40 Dose: 10 mg Aspirin (Asa -) 325 mg PO DAILY [facility] Last Admin: 07/20/17 09:40 Dose: 325 mg Atorvastatin Calcium (Lipitor -) 40 mg PO HS [facility] Last Admin: 07/20/17 22:45 Dose: 40 mg Heparin Sodium (Porcine) (Heparin -) 5,000 unit SQ TID [facility] Last Admin: 07/21/17 06:38 Dose: 5,000 unit Sodium Chloride (Normal Saline -) 1,000 mls @ 100 mls/hr IV ASDIR [facility] Last Admin: 07/20/17 22:52 Dose: 100 mls/hr Meropenem 1 gm/ Dextrose 100 mls @ 200 mls/hr IVPB Q8H-IV ZAYRA PRN Reason: Protocol Last Admin: 07/21/17 02:12 Dose: 200 mls/hr Vancomycin HCl 1,000 mg/ (Dextrose) 250 mls @ 250 mls/hr IVPB BID ZAYRA PRN Reason: Protocol Influenza Virus Vaccine Quadrival (Flulaval Quad [id number]) 60 mcg IM .ONCE ONE Stop: 07/21/17 11:01 Insulin Aspart (Novolog Vial Sliding Scale -) 1 vial SQ ACHS [facility] PRN Reason: Protocol Last Admin: 07/21/17 06:39 Dose: 2 units Lisinopril (Prinivil) 40 mg PO DAILY [facility] Last Admin: 07/20/17 09:40 Dose: 40 mg Oxycodone HCl (Roxicodone -) 5 mg PO Q6H PRN PRN Reason: PAIN LEVEL 6-10 Last Admin: 07/21/17 08:25 Dose: 5 mg Pneumococcal 13-Valent Conj Vacc (Prevnar 13 Syringe -) 0.5 ml IM .ONCE ONE Stop: 07/21/17 11:01 - Objective Vital Signs: Vital Signs Temperature 99.2 F 07/21/17 08:22 Pulse Rate 92 H 07/21/17 08:22 Respiratory Rate 20 07/21/17 08:22 Blood Pressure 139/67 07/21/17 08:22 O2 Sat by Pulse Oximetry (%) 97 07/20/17 21:00 Constitutional: Yes: No Distress, Calm Cardiovascular: Yes: Regular Rate and Rhythm Respiratory: Yes: Regular, CTA Bilaterally Gastrointestinal: Yes: Normal Bowel Sounds, Soft Musculoskeletal: Yes: Other Extremities: Yes: Other Integumentary: Yes: Erythema, Other Neurological: Yes: Alert, Oriented Psychiatric: Yes: Alert, Oriented Labs: CBC, BMP 07/20/17 06:00 07/20/17 06:00 INR, PTT INR 1.00 (0.82-1.09) 07/19/17 09:40 Assessment/Plan Problem List - Problems (1) Leg edema, right Code(s): R60.0 - LOCALIZED EDEMA cellulitits of the rt ;eg we need to know the hardware situation also we need to know if there is deep seated infection plan continue abx ct scan result noted will probably need vascular on case
--- NOTE | 2017-07-21 10:02 | PN ---
Progress Note (short form) - Note Progress Note: Ortho Pt seen and examined Selected Entries 07/21/17 08:22 Temperature 99.2 F Pulse Rate 92 H Respiratory 20 Rate Blood Pressure 139/67 Laboratory Tests 07/20/17 06:00 WBC 9.6 Hgb 12.9 Hct 38.9 Plt Count 305 right knee 1+ effusion, no erythem, rom 5-100, calf swollen, slight erythema, nvi xray- shows severe tricompartmental djd with old hardware in place ct scan- + hematoma/fluid collection in medial calf a/p Right LE cellulitis, right knee djd under sterile technique right knee was aspirated- 20cc of clear inflammatory fluid was aspirated and sent to lab sterile pressure dressing applied evidence of septic joint is low but will follow of aspiration- limited ROM due to severity of OA abx as per ID oob, wbat elevation will follow d/w Dr. Kline
[2017-07-21] MEDS ORDERED: PT OWN MED DRAWER 7, Y5N ONE ×2 (10:21→17:42)
[2017-07-21] MEDS: LISINOPRIL 20 MG TABLET (FP) PO SCH (10:42)
[2017-07-21] MEDS: amLODIPine BESYLATE 10 MG TABLET (FP) PO SCH (10:42)
[2017-07-21] MEDS: ASPIRIN 325 MG TABLET PO SCH (10:42)
[2017-07-21] MEDS ORDERED: PNEUMOC 13-VAL CONJ-DIP CRM/PF 0.5 ML DISP.SYRIN IM ONE (11:00)
[2017-07-21] MEDS ORDERED: FLU VACCINE QUAD 60 MCG/0.5 ML (MDV 17-18) IM ONE (11:00)
[2017-07-21] MEDS: VANCOMYCIN 1,000 MG in DEXTROSE 5%-WATER - 250 ML IVPB SCH ×2 (11:28→22:27)
[2017-07-21] MEDS ORDERED: INSULIN (NOVOLOG) ASPART 100 UNITS/ML 10ML VIAL ONE ×3 (12:05→18:00)
[2017-07-21 13:36] LABS: CRYSTALS,SYNOVIAL FLUID NEGATIVE
--- NOTE | 2017-07-21 14:03 | PN ---
Physical Exam: SUBJECTIVE: Patient seen and examined. No acute events overnight. Patient offers no new complaints and still complains of right leg pain with no change. OBJECTIVE: Vital Signs Period Temp Pulse Resp BP Sys/Jasmine Pulse Ox Last 24 Hr 97.9 F-99.2 F 88-99 18-22 114-150/61-85 96-97 GENERAL: Awake, alert, and fully oriented, in no acute distress HEAD: No signs of trauma, normocephalic, atraumatic EYES: PERRLA, EOMI, sclera anicteric, conjunctiva clear ENT: Auricles normal inspection, hearing grossly normal, nares patent, oropharynx clear without exudates. Moist mucosa NECK: Normal ROM, supple, no lymphadenopathy, JVD, or masses LUNGS: No distress, speaks full sentences, clear to auscultation bilaterally HEART: Regular rate and rhythm, normal S1 and S2, no murmurs, rubs or gallops, peripheral pulses normal and equal bilaterally. ABDOMEN: Soft, nontender, normoactive bowel sounds. No guarding, no rebound. No masses EXTREMITIES: Decreased Right knee ROM, R knee tenderness with 1+ pitting edema and warmth compared to left leg. NEUROLOGICAL: Cranial nerves II through XII grossly intact. Normal speech, normal gait Laboratory Results - last 24 hr 07/20/17 07/20/17 07/21/17 17:21 22:42 06:37 POC Glucometer 190 212 180 Synovial Source Synovial WBC Synovial RBC Synovial Crystals 07/21/17 07/21/17 11:15 11:56 POC Glucometer 237 Synovial Source Right knee Synovial WBC 187 Synovial RBC 612 Synovial Crystals Negative Active Medications Generic Name Dose Route Start Last Admin Trade Name Freq PRN Reason Stop Dose Admin Acetaminophen 650 mg 07/21/17 00:18 Tylenol - PO Q6H PRN FEVER OR PAIN Acetaminophen 325 mg 07/21/17 00:32 07/21/17 08:26 Tylenol - PO 325 mg Q6H PRN Administration PAIN LEVEL 6-10 Amlodipine Besylate 10 mg 07/20/17 10:00 07/21/17 10:42 Norvasc - PO 10 mg DAILY ZAYRA Administration Aspirin 325 mg 07/20/17 10:00 07/21/17 10:42 Asa - PO 325 mg DAILY ZAYRA Administration Atorvastatin Calcium 40 mg 07/20/17 22:00 07/20/17 22:45 Lipitor - PO 40 mg HS ZAYRA Administration Heparin Sodium (Porcine) 5,000 unit 07/19/17 14:30 07/21/17 06:38 Heparin - SQ 5,000 unit TID ZAYRA Administration Sodium Chloride 1,000 mls @ 100 mls/hr 07/19/17 16:45 07/20/17 22:52 Normal Saline - IV 100 mls/hr ASDIR ZAYRA Administration Meropenem 1 gm/ Dextrose 100 mls @ 200 mls/hr 07/20/17 18:00 07/21/17 10:41 IVPB 200 mls/hr Q8H-IV ZAYRA Administration Protocol Vancomycin HCl 1,000 mg/ 250 mls @ 250 mls/hr 07/21/17 10:00 07/21/17 11:28 Dextrose IVPB 250 mls/hr BID ZAYRA Administration Protocol Insulin Aspart 1 vial 07/19/17 22:00 07/21/17 12:06 Novolog Vial Sliding Scale - SQ 4 units ACHS ZAYRA Administration Protocol Lisinopril 40 mg 07/20/17 10:00 07/21/17 10:42 Prinivil PO 40 mg DAILY ZAYRA Administration Oxycodone HCl 5 mg 07/21/17 00:32 07/21/17 08:25 Roxicodone - PO 5 mg Q6H PRN Administration PAIN LEVEL 6-10 xray- shows 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 #Severe Sepsis secondary to RLE Cellulitis -Lt TKR in 1998 and Rt TKR in 2003 -history of posterior neck staph infection (2014) -duplex negative -Continue Meropenem , Vanc (abx day 3) - MRSA screen -Right knee is not septic at the present time per Ortho -ct scan- + hematoma/fluid collection in medial calf -right knee was aspirated- 20cc of clear fluid. low suspicion of septic joint per Ortho -FU fluid analysis #DM -insulin sliding scale -A1c 8.8 -will monitor #HTN/CAD -will monitor -continue home Norvasc 10, Lisinopril 40 -contine ASA, Lipitor 40 #DVT PPX: -Hep SQ 5000 TID Visit type - Emergency Visit Emergency Visit: Yes ED Registration Date: 07/19/17 Care time: The patient presented to the Emergency Department on the above date and was hospitalized for further evaluation of their emergent condition. - New Patient This patient is new to me today: No - Critical Care Critical Care patient: No
[2017-07-21 14:53] LABS: TOTAL PROTEIN,SYNOVIAL FLUID 1 gm/dL
[2017-07-21 14:54] LABS: GLUCOSE,SYNOVIAL FLUID < 1 mg/dL
[2017-07-21] MEDS: SODIUM CHLORIDE 1,000 ML IV SCH (16:45)
--- NOTE | 2017-07-21 17:06 | PN ---
Teaching Attending Note Name of Resident: Kalpana John ATTENDING PHYSICIAN STATEMENT I saw and evaluated the patient. I reviewed the resident's note and discussed the case with the resident. I agree with the resident's findings and plan as documented. SUBJECTIVE: Patient reports improvement in right knee after aspiration. OBJECTIVE: Vital Signs Period Temp Pulse Resp BP Sys/Jasmine Pulse Ox Last 24 Hr 97.9 F-99.2 F 88-99 18-22 114-150/61-85 96-97 HEART: S1S2,RRR LUNGS: Clear ABDOMEN: Soft, non-tender, non-distended, normal BS EXTREMITIES: Right knee swollen without erythema. Right calf swollen without erythema or tenderness. Current Medications Generic Name Dose Route Start Last Admin Trade Name Freq PRN Reason Stop Dose Admin Acetaminophen 650 mg 07/21/17 00:18 Tylenol - PO Q6H PRN FEVER OR PAIN Acetaminophen 325 mg 07/21/17 00:32 07/21/17 08:26 Tylenol - PO 325 mg Q6H PRN Administration PAIN LEVEL 6-10 Amlodipine Besylate 10 mg 07/20/17 10:00 07/21/17 10:42 Norvasc - PO 10 mg DAILY ZAYRA Administration Aspirin 325 mg 07/20/17 10:00 07/21/17 10:42 Asa - PO 325 mg DAILY ZAYRA Administration Atorvastatin Calcium 40 mg 07/20/17 22:00 07/20/17 22:45 Lipitor - PO 40 mg HS ZAYRA Administration Heparin Sodium (Porcine) 5,000 unit 07/19/17 14:30 07/21/17 14:30 Heparin - SQ 5,000 unit TID ZAYRA Administration Sodium Chloride 1,000 mls @ 100 mls/hr 07/19/17 16:45 07/20/17 22:52 Normal Saline - IV 100 mls/hr ASDIR ZAYRA Administration Meropenem 1 gm/ Dextrose 100 mls @ 200 mls/hr 07/20/17 18:00 07/21/17 10:41 IVPB 200 mls/hr Q8H-IV ZAYRA Administration Protocol Vancomycin HCl 1,000 mg/ 250 mls @ 250 mls/hr 07/21/17 10:00 07/21/17 11:28 Dextrose IVPB 250 mls/hr BID ZAYRA Administration Protocol Insulin Aspart 1 vial 07/19/17 22:00 07/21/17 12:06 Novolog Vial Sliding Scale - SQ 4 units ACHS ZAYRA Administration Protocol Lisinopril 40 mg 07/20/17 10:00 07/21/17 10:42 Prinivil PO 40 mg DAILY ZAYRA Administration Oxycodone HCl 5 mg 07/21/17 00:32 07/21/17 08:25 Roxicodone - PO 5 mg Q6H PRN Administration PAIN LEVEL 6-10 ASSESSMENT AND PLAN: 1. Severe sepsis secondary to RLE cellulitis - Improving - Continue Merrem, Vancomycin 2. DJD of right knee with effusion - s/p aspiration of joint today - Follow-up culture 3. CAD - Continue aspirin, Lipitor 4. HTN - Continue Lisinopril, Norvasc 5. Hyperlipidemia - Continue Lipitor 6. Type 2 DM - Continue Novolog sliding scale
[2017-07-21 20:59] LABS: SYNOVIAL FLUID LYMPHOCYTES 90 %; SYNOVIAL FLUID MONOCYTES 6 %; SYNOVIAL FLUID NEUTROPHILS 4 %
[2017-07-21] MEDS: ATORVASTATIN CA 40 MG TABLET (FP) PO SCH (22:27)
[2017-07-22] MEDS: SODIUM CHLORIDE 1,000 ML IV SCH ×3 (01:46→17:44)
[2017-07-22] MEDS: MEROPENEM 1 GM in DEXTROSE 5%-WATER - 100 ML IVPB SCH ×3 (01:46→18:25)
[2017-07-22] MEDS: HEPARIN NA (PORCINE) 5,000 UNITS/ML 1ML VIAL SQ SCH ×3 (06:28→22:48)
[2017-07-22] MEDS: INSULIN SLIDING SCALE (NOVOLOG) 1 VIAL SQ SCH ×4 (06:28→22:49)
--- NOTE | 2017-07-22 08:27 | PN ---
Physical Exam: SUBJECTIVE: Patient seen and examined. Patient seen and examined. No acute events overnight. Patient says the pain on his leg is better today and tolerable. OBJECTIVE: Vital Signs Period Temp Pulse Resp BP Sys/Jasmine Pulse Ox Last 24 Hr 97.6 F-99.0 F 91-102 18-102 134-144/66-80 96-96 GENERAL: Awake, alert, and fully oriented, in no acute distress HEAD: No signs of trauma, normocephalic, atraumatic EYES: PERRLA, EOMI, sclera anicteric, conjunctiva clear ENT: Auricles normal inspection, hearing grossly normal, nares patent, oropharynx clear without exudates. Moist mucosa NECK: Normal ROM, supple, no lymphadenopathy, JVD, or masses LUNGS: No distress, speaks full sentences, clear to auscultation bilaterally HEART: Regular rate and rhythm, normal S1 and S2, no murmurs, rubs or gallops, peripheral pulses normal and equal bilaterally. ABDOMEN: Soft, nontender, normoactive bowel sounds. No guarding, no rebound. No masses EXTREMITIES: Decreased Right knee ROM, R knee tenderness (better today) with 1 + pitting edema and warmth compared to left leg. NEUROLOGICAL: Cranial nerves II through XII grossly intact. Normal speech, normal gait Laboratory Results - last 24 hr 07/21/17 07/21/17 07/21/17 11:15 11:56 17:32 POC Glucometer 237 206 Synovial Source Right knee Synovial WBC 187 Synovial RBC 612 Synovial Neutrophils 4 Synovial Lymphocytes 90 Synovial Monocytes 6 Synovial Diff Comment Synovial Crystals Negative Synovial Glucose < 1 Synovial Total Protein 1 Synovial LDH 39 Synovial Amylase 2 07/21/17 07/22/17 22:24 06:25 POC Glucometer 236 185 Synovial Source Synovial WBC Synovial RBC Synovial Neutrophils Synovial Lymphocytes Synovial Monocytes Synovial Diff Comment Synovial Crystals Synovial Glucose Synovial Total Protein Synovial LDH Synovial Amylase Active Medications Generic Name Dose Route Start Last Admin Trade Name Freq PRN Reason Stop Dose Admin Acetaminophen 650 mg 07/21/17 00:18 Tylenol - PO Q6H PRN FEVER OR PAIN Acetaminophen 325 mg 07/21/17 00:32 07/21/17 22:26 Tylenol - PO 325 mg Q6H PRN Administration PAIN LEVEL 6-10 Amlodipine Besylate 10 mg 07/20/17 10:00 07/21/17 10:42 Norvasc - PO 10 mg DAILY ZAYRA Administration Aspirin 325 mg 07/20/17 10:00 07/21/17 10:42 Asa - PO 325 mg DAILY ZAYRA Administration Atorvastatin Calcium 40 mg 07/20/17 22:00 07/21/17 22:27 Lipitor - PO 40 mg HS ZAYRA Administration Heparin Sodium (Porcine) 5,000 unit 07/19/17 14:30 07/22/17 06:28 Heparin - SQ 5,000 unit TID ZAYRA Administration Sodium Chloride 1,000 mls @ 100 mls/hr 07/19/17 16:45 07/22/17 01:46 Normal Saline - IV 100 mls/hr ASDIR ZAYRA Administration Meropenem 1 gm/ Dextrose 100 mls @ 200 mls/hr 07/20/17 18:00 07/22/17 01:46 IVPB 200 mls/hr Q8H-IV ZAYRA Administration Protocol Vancomycin HCl 1,000 mg/ 250 mls @ 250 mls/hr 07/21/17 10:00 07/21/17 22:27 Dextrose IVPB 250 mls/hr BID ZAYRA Administration Protocol Insulin Aspart 1 vial 07/19/17 22:00 07/22/17 06:28 Novolog Vial Sliding Scale - SQ 2 units ACHS ZAYRA Administration Protocol Lisinopril 40 mg 07/20/17 10:00 07/21/17 10:42 Prinivil PO 40 mg DAILY ZAYRA Administration Oxycodone HCl 5 mg 07/21/17 00:32 07/21/17 22:25 Roxicodone - PO 5 mg Q6H PRN Administration PAIN LEVEL 6-10 ASSESSMENT/PLAN: xray- shows 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 # Hematoma of Right Leg s/p fall and trauma -on home aspirin, now held -leg circumference today 15 inches -cannot MRI because of leg hardware -ct scan- + hematoma/fluid collection in medial calf #Severe Sepsis secondary to RLE Cellulitis -improved -Lt TKR in 1998 and Rt TKR in 2003 -history of posterior neck staph infection (2014) -duplex negative -Continue Meropenem , Vanc (abx day 4) - MRSA screen -Right knee is not septic at the present time per Ortho -right knee was aspirated- 20cc of clear fluid. -Fluid Analysis negative for infections #DM -insulin sliding scale -A1c 8.8 -will monitor #HTN/CAD -will monitor -continue home Norvasc 10, Lisinopril 40 -contine ASA, Lipitor 40 #DVT PPX: -Hep SQ 5000 TID Visit type - Emergency Visit Emergency Visit: Yes ED Registration Date: 07/19/17 Care time: The patient presented to the Emergency Department on the above date and was hospitalized for further evaluation of their emergent condition. - New Patient This patient is new to me today: No - Critical Care Critical Care patient: No
[2017-07-22] MEDS ORDERED: PT OWN MED DRAWER 7, Y5N ONE ×2 (09:03→18:17)
[2017-07-22] MEDS: amLODIPine BESYLATE 10 MG TABLET (FP) PO SCH (09:32)
[2017-07-22] MEDS: ASPIRIN 325 MG TABLET PO SCH (09:32)
[2017-07-22] MEDS: LISINOPRIL 20 MG TABLET (FP) PO SCH (09:32)
[2017-07-22] MEDS: VANCOMYCIN 1,000 MG in DEXTROSE 5%-WATER - 250 ML IVPB SCH ×2 (10:14→22:54)
[2017-07-22 11:57] LABS: BASOPHIL 0.4 % (0-2.0); EOSINOPHIL 0.8 % (0-4.5); MCH 31.3 pg (25.7-33.7); MEAN CELL VOLUME 94.7 fl (80-96); MEAN PLT VOLUME 7.7 fl (7.5-11.1); NEUTROPHILS 81.2 % (42.8-82.8); PLATELET COUNT 343 K/MM3 (134-434); RDW 13.9 % (11.9-15.9); WHITE BLOOD COUNT 11.6 K/mm3 (4.0-10.0)
--- NOTE | 2017-07-22 14:01 | PN ---
Progress Note, Physician History of Present Illness: patient doing well no complaints improving pain and mobility - Current Medication List Current Medications: Active Medications Acetaminophen (Tylenol -) 650 mg PO Q6H PRN PRN Reason: FEVER OR PAIN Acetaminophen (Tylenol -) 325 mg PO Q6H PRN PRN Reason: PAIN LEVEL 6-10 Last Admin: 07/21/17 22:26 Dose: 325 mg Amlodipine Besylate (Norvasc -) 10 mg PO DAILY [facility] Last Admin: 07/22/17 09:32 Dose: 10 mg Aspirin (Asa -) 325 mg PO DAILY [facility] Last Admin: 07/22/17 09:32 Dose: 325 mg Atorvastatin Calcium (Lipitor -) 40 mg PO HS [facility] Last Admin: 07/21/17 22:27 Dose: 40 mg Heparin Sodium (Porcine) (Heparin -) 5,000 unit SQ TID [facility] Last Admin: 07/22/17 06:28 Dose: 5,000 unit Sodium Chloride (Normal Saline -) 1,000 mls @ 100 mls/hr IV ASDIR [facility] Last Admin: 07/22/17 01:46 Dose: 100 mls/hr Meropenem 1 gm/ Dextrose 100 mls @ 200 mls/hr IVPB Q8H-IV ZAYRA PRN Reason: Protocol Last Admin: 07/22/17 09:33 Dose: 200 mls/hr Vancomycin HCl 1,000 mg/ (Dextrose) 250 mls @ 250 mls/hr IVPB BID ZAYRA PRN Reason: Protocol Last Admin: 07/22/17 10:14 Dose: 250 mls/hr Insulin Aspart (Novolog Vial Sliding Scale -) 1 vial SQ ACHS [facility] PRN Reason: Protocol Last Admin: 07/22/17 11:59 Dose: 6 units Lisinopril (Prinivil) 40 mg PO DAILY [facility] Last Admin: 07/22/17 09:32 Dose: 40 mg Oxycodone HCl (Roxicodone -) 5 mg PO Q6H PRN PRN Reason: PAIN LEVEL 6-10 Last Admin: 07/21/17 22:25 Dose: 5 mg - Objective Vital Signs: Vital Signs Temperature 99.7 F H 07/22/17 13:51 Pulse Rate 104 H 07/22/17 13:51 Respiratory Rate 18 07/22/17 10:00 Blood Pressure 116/50 07/22/17 13:51 O2 Sat by Pulse Oximetry (%) 96 07/21/17 22:00 Constitutional: Yes: No Distress, Calm Cardiovascular: Yes: Regular Rate and Rhythm Respiratory: Yes: Regular, CTA Bilaterally Gastrointestinal: Yes: Normal Bowel Sounds, Soft Musculoskeletal: Yes: Other Extremities: Yes: Other (improving) Neurological: Yes: Alert, Oriented Psychiatric: Yes: Alert, Oriented Labs: CBC, BMP 07/22/17 11:40 07/20/17 06:00 INR, PTT INR 1.00 (0.82-1.09) 07/19/17 09:40 Assessment/Plan Problem List - Problems (1) Leg edema, right Code(s): R60.0 - LOCALIZED EDEMA cellulitits of the rt ;eg plan continue abx will stop vanco patients leg improving might need physio ortho note noted
--- NOTE | 2017-07-22 15:04 | PN ---
Progress Note (short form) - Note Progress Note: Ortho Pt seen and examined. feeling much better Microbiology 07/21/17 11:15 Aspirate Gram Stain - Final 07/21/17 11:15 Aspirate Body Fluid Culture - Preliminary NO AEROBIC GROWTH, 24 HRS Selected Entries 07/22/17 07/22/17 10:00 13:51 Temperature 99.7 F H Pulse Rate 104 H Respiratory 18 Rate Blood Pressure 116/50 Laboratory Tests 07/21/17 07/22/17 11:15 11:40 WBC 11.6 H Hgb 12.8 Hct 38.6 Plt Count 343 Synovial Source Right knee Synovial WBC 187 Synovial Neutrophils 4 Synovial Lymphocytes 90 Synovial Monocytes 6 Synovial Crystals Negative right knee no effusion, no erythema, rom 5-100, calf swollen, slight erythema, nvi xray- shows 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 Kline
--- NOTE | 2017-07-22 15:45 | PN ---
Teaching Attending Note Name of Resident: Kalpana John ATTENDING PHYSICIAN STATEMENT I saw and evaluated the patient. I reviewed the resident's note and discussed the case with the resident. I agree with the resident's findings and plan as documented. SUBJECTIVE: no fever or chills . Pain in R knee has improved . pain in calf improved OBJECTIVE: NAD CV : RRR Lungs: minimal crackles at bases Ext: R calf and leg with slight erythema , increased warmth and tenderness to palpation . DP 2+ b/l . no knee effusion detected. ASSESSMENT AND PLAN: A pleasant 67 y/o man with h/o HTN, DM , and L TKA who presented with R knee and calf pain and was found to have cellulitis and hematoma of the calf 1- Hematoma of R leg: in the setting of a fall and trauma while on aspirin - hold asa ( does not have cardiac history ) - monitor leg circumference - MRI would be ideal to evaluate the tendons but he has hard wear in that knee which will obscure the picture. 2- Cellulitis with severe sepsis: improved . - cont meropenem and vanco . - check vanco trough - no evidence of joint infection. follow synovial fluid cx 3- DM : poorly controlled - start him on levemir - cont SSI 4- HTN: cont lisinopril Dispo : HLOC
[2017-07-22] MEDS ORDERED: INSULIN (NOVOLOG) ASPART 100 UNITS/ML 10ML VIAL ONE (17:30)
[2017-07-22] MEDS: ATORVASTATIN CA 40 MG TABLET (FP) PO SCH (22:48)
[2017-07-23] MEDS: MEROPENEM 1 GM in DEXTROSE 5%-WATER - 100 ML IVPB SCH ×3 (02:00→18:45)
[2017-07-23] MEDS: INSULIN SLIDING SCALE (NOVOLOG) 1 VIAL SQ SCH ×4 (06:08→23:27)
[2017-07-23] MEDS: HEPARIN NA (PORCINE) 5,000 UNITS/ML 1ML VIAL SQ SCH ×3 (06:08→23:14)
[2017-07-23] MEDS: SODIUM CHLORIDE 1,000 ML IV SCH ×2 (06:10→18:41)
[2017-07-23 09:00] LABS: BASOPHIL 0.7 % (0-2.0); EOSINOPHIL 1.6 % (0-4.5); MCH 31.3 pg (25.7-33.7); MEAN CELL VOLUME 94.6 fl (80-96); MEAN PLT VOLUME 8.1 fl (7.5-11.1); NEUTROPHILS 75.5 % (42.8-82.8); PLATELET COUNT 370 K/MM3 (134-434); WHITE BLOOD COUNT 13.2 K/mm3 (4.0-10.0)
--- NOTE | 2017-07-23 09:03 | PN ---
Progress Note (short form) - Note Progress Note: Ortho Pt seen and examined. 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 Kline
[2017-07-23] MEDS ORDERED: PT OWN MED DRAWER 7, Y5N ONE ×3 (10:57→18:39)
[2017-07-23] MEDS: LISINOPRIL 20 MG TABLET (FP) PO SCH (11:24)
[2017-07-23] MEDS: amLODIPine BESYLATE 10 MG TABLET (FP) PO SCH (11:24)
[2017-07-23] MEDS: VANCOMYCIN 1,000 MG in DEXTROSE 5%-WATER - 250 ML IVPB SCH (11:25)
[2017-07-23] MEDS: oxyCODONE HCL 5 MG TABLET PO PRN ×2 (13:51→23:26)
[2017-07-23] MEDS: ACETAMINOPHEN 325 MG TABLET (FP) PO PRN ×2 (13:52→23:27)
--- NOTE | 2017-07-23 15:46 | PN ---
Teaching Attending Note Name of Resident: Red Santoyo ATTENDING PHYSICIAN STATEMENT I saw and evaluated the patient. I reviewed the resident's note and discussed the case with the resident. I agree with the resident's findings and plan as documented. SUBJECTIVE: no fever or chills. has no abd pain , no MANN or SOB. pain in R leg is better . OBJECTIVE: NAD CV : RRR Lungs: minimal crackles at bases Ext: R calf and leg with slight erythema ( improved compared to yesterday ), warmth and tenderness to palpation . DP 2+ b/l . no knee effusion detected. circumference of calf 15 inch same as yesterday. ASSESSMENT AND PLAN: A pleasant 67 y/o man with h/o HTN, DM, and L TKR who presented with R knee and calf pain and was found to have cellulitis and hematoma of the calf 1- Hematoma of R leg: in the setting of a fall and trauma while on aspirin Leg circumference is stable, but leukocytosis is worse today, with no fever. - Cont to hold ASA - monitor leg circumference ( stable since yesterday ) - monitor leukocytosis , and check for fever ..( other source of infection or developing abscess ) 2- Cellulitis with severe sepsis: improved . - cont meropenem and vanco . - vanco trough 13 . cont dose - No evidence of joint infection. synovial fluid cx Neg 3- DM : poorly controlled - cont SSI - resume januvia - will confirm his home regimen 4- HTN: cont lisinopril Dispo : OC
--- NOTE | 2017-07-23 15:48 | PN ---
Physical Exam: SUBJECTIVE: Patient seen and examined. No acute events overnight. Pt denies fevers, chills, chest pain, SOB, abdominal pain, n/v/d/c, and urinary sxs. He states that his leg pain is similar to yesterday and that he is unable to walk due to pain. OBJECTIVE: Vital Signs Period Temp Pulse Resp BP Sys/Jasmine Pulse Ox Last 24 Hr 98.7 F-99.9 F 94-108 18-20 133-150/65-79 94-94 GENERAL: The patient is awake, alert, and fully oriented, in no acute distress. HEAD: Normal with no signs of trauma. EYES: PERRL, extraocular movements intact, sclera anicteric, conjunctiva clear. No ptosis. ENT: Ears normal, nares patent, oropharynx clear without exudates, moist mucous membranes. NECK: Trachea midline, full range of motion, supple. LUNGS: Breath sounds equal, clear to auscultation bilaterally, no wheezes, no crackles, no accessory muscle use. HEART: Regular rate and rhythm, S1, S2 without murmur, rub or gallop. ABDOMEN: Soft, nontender, nondistended, normoactive bowel sounds, no guarding, no rebound, no hepatosplenomegaly, no masses. EXTREMITIES: right calf is slightly erythematous, warm to touch, and tender to palpation. DP 2+ b/l NEUROLOGICAL: Cranial nerves II through XII grossly intact. Normal speech, gait not observed. PSYCH: Normal mood, normal affect. SKIN: Warm, dry, normal turgor, no rashes or lesions noted Laboratory Results - last 24 hr 07/22/17 07/22/17 07/22/17 17:37 21:28 21:30 WBC RBC Hgb Hct MCV MCH MCHC RDW Plt Count MPV Neutrophils % Lymphocytes % Monocytes % Eosinophils % Basophils % POC Glucometer 131 206 Vancomycin Pre-Dose 13.884 H 07/23/17 07/23/17 07/23/17 05:44 08:35 12:05 WBC 13.2 H RBC 4.15 Hgb 13.0 Hct 39.3 MCV 94.6 MCH 31.3 MCHC 33.0 RDW 14.0 Plt Count 370 MPV 8.1 Neutrophils % 75.5 Lymphocytes % 12.7 Monocytes % 9.5 Eosinophils % 1.6 D Basophils % 0.7 POC Glucometer 204 221 Vancomycin Pre-Dose Active Medications Generic Name Dose Route Start Last Admin Trade Name Freq PRN Reason Stop Dose Admin Acetaminophen 650 mg 07/21/17 00:18 Tylenol - PO Q6H PRN FEVER OR PAIN Acetaminophen 325 mg 07/21/17 00:32 07/23/17 13:52 Tylenol - PO 325 mg Q6H PRN Administration PAIN LEVEL 6-10 Amlodipine Besylate 10 mg 07/20/17 10:00 07/23/17 11:24 Norvasc - PO 10 mg DAILY ZAYRA Administration Atorvastatin Calcium 40 mg 07/20/17 22:00 07/22/17 22:48 Lipitor - PO 40 mg HS ZAYRA Administration Heparin Sodium (Porcine) 5,000 unit 07/19/17 14:30 07/23/17 06:08 Heparin - SQ 5,000 unit TID ZAYRA Administration Sodium Chloride 1,000 mls @ 100 mls/hr 07/19/17 16:45 07/23/17 06:10 Normal Saline - IV 100 mls/hr ASDIR ZAYRA Administration Meropenem 1 gm/ Dextrose 100 mls @ 200 mls/hr 07/20/17 18:00 07/23/17 11:24 IVPB 200 mls/hr Q8H-IV ZAYRA Administration Protocol Vancomycin HCl 1,000 mg/ 250 mls @ 250 mls/hr 07/21/17 10:00 07/23/17 11:25 Dextrose IVPB 250 mls/hr BID ZAYRA Administration Protocol Insulin Aspart 1 vial 07/19/17 22:00 07/23/17 13:18 Novolog Vial Sliding Scale - SQ 4 units ACHS ZAYRA Administration Protocol Lisinopril 40 mg 07/20/17 10:00 07/23/17 11:24 Prinivil PO 40 mg DAILY ZAYRA Administration Oxycodone HCl 5 mg 07/21/17 00:32 07/23/17 13:51 Roxicodone - PO 5 mg Q6H PRN Administration PAIN LEVEL 6-10 Sitagliptin Phosphate 100 mg 07/23/17 11:30 Januvia - PO DAILY@0700 [facility] ASSESSMENT/PLAN: 67M with hx of HTN, DM, B/L TKR, posterior neck staph infection (2014), who presented to the ED with calf pain and edema, admitted for severe sepsis secondary to RLE cellulitis. # Hematoma of Right Leg s/p fall and trauma -on home aspirin for primary prevention, now held -leg circumference today 15 inches, same as yesterday -cannot MRI because of leg hardware -ct scan- + hematoma/fluid collection in medial calf #Severe Sepsis secondary to RLE Cellulitis -improving -Lt TKR in 1998 and Rt TKR in 2003 -history of posterior neck staph infection (2014) -duplex negative -vanc trough of 14 -Continue Meropenem , Vanc (abx day 5) -MRSA screen: negative -Right knee is not septic at the present time per Ortho -right knee was aspirated- 20cc of clear fluid. -Fluid Analysis negative for infections #DM -insulin sliding scale -A1c 8.8 -will monitor -januvia restarted -per PCP (Dr. Ward), pt on humalog (75-25) 80U BID and lantus insulin 60U QD in addition to januvia and metformin. #HTN/CAD -will monitor -continue home Norvasc 10, Lisinopril 40 -contine Lipitor 40 #DVT PPX: -Hep SQ 5000 TID -Red Santoyo MD PGY1 Visit type - Emergency Visit Emergency Visit: Yes ED Registration Date: 07/19/17 Care time: The patient presented to the Emergency Department on the above date and was hospitalized for further evaluation of their emergent condition. - New Patient This patient is new to me today: Yes Date on this admission: 07/23/17 - Critical Care Critical Care patient: No
[2017-07-23] MEDS: sitaGLIPtin PHOSPHATE 100 MG TABLET (FP) PO SCH (15:49)
--- NOTE | 2017-07-23 16:34 | PN ---
Progress Note, Physician History of Present Illness: continues to improves movement of the leg better - Current Medication List Current Medications: Active Medications Acetaminophen (Tylenol -) 650 mg PO Q6H PRN PRN Reason: FEVER OR PAIN Acetaminophen (Tylenol -) 325 mg PO Q6H PRN PRN Reason: PAIN LEVEL 6-10 Last Admin: 07/23/17 13:52 Dose: 325 mg Amlodipine Besylate (Norvasc -) 10 mg PO DAILY [facility] Last Admin: 07/23/17 11:24 Dose: 10 mg Atorvastatin Calcium (Lipitor -) 40 mg PO HS [facility] Last Admin: 07/22/17 22:48 Dose: 40 mg Heparin Sodium (Porcine) (Heparin -) 5,000 unit SQ TID [facility] Last Admin: 07/23/17 15:49 Dose: 5,000 unit Sodium Chloride (Normal Saline -) 1,000 mls @ 100 mls/hr IV ASDIR [facility] Last Admin: 07/23/17 06:10 Dose: 100 mls/hr Meropenem 1 gm/ Dextrose 100 mls @ 200 mls/hr IVPB Q8H-IV ZAYRA PRN Reason: Protocol Last Admin: 07/23/17 11:24 Dose: 200 mls/hr Insulin Aspart (Novolog Vial Sliding Scale -) 1 vial SQ ACHS [facility] PRN Reason: Protocol Last Admin: 07/23/17 13:18 Dose: 4 units Lisinopril (Prinivil) 40 mg PO DAILY [facility] Last Admin: 07/23/17 11:24 Dose: 40 mg Oxycodone HCl (Roxicodone -) 5 mg PO Q6H PRN PRN Reason: PAIN LEVEL 6-10 Last Admin: 07/23/17 13:51 Dose: 5 mg Sitagliptin Phosphate (Januvia -) 100 mg PO DAILY@0700 [facility] Last Admin: 07/23/17 15:49 Dose: 100 mg - Objective Vital Signs: Vital Signs Temperature 99.1 F 07/23/17 13:52 Pulse Rate 98 H 07/23/17 13:52 Respiratory Rate 20 07/23/17 10:10 Blood Pressure 135/69 07/23/17 13:52 O2 Sat by Pulse Oximetry (%) 94 L 07/23/17 11:00 Constitutional: Yes: No Distress, Calm Cardiovascular: Yes: Regular Rate and Rhythm Respiratory: Yes: Regular, CTA Bilaterally Gastrointestinal: Yes: Normal Bowel Sounds, Soft Musculoskeletal: Yes: Other Extremities: Yes: Other (movement improving) Integumentary: Yes: Other (cellulitits resolving) Neurological: Yes: Alert, Oriented Psychiatric: Yes: Alert, Oriented Labs: CBC, BMP 07/23/17 08:35 07/20/17 06:00 INR, PTT INR 1.00 (0.82-1.09) 07/19/17 09:40 Assessment/Plan Problem List - Problems (1) Leg edema, right Code(s): R60.0 - LOCALIZED EDEMA cellulitits of the rt ;eg plan stopped vanco wbc marginally up will watch how patient does rest as per primary team
[2017-07-23] MEDS: INSULIN DETEMIR 100 UNITS/ML MDV SQ SCH (23:14)
[2017-07-23] MEDS: ATORVASTATIN CA 40 MG TABLET (FP) PO SCH (23:14)
[2017-07-24] MEDS: MEROPENEM 1 GM in DEXTROSE 5%-WATER - 100 ML IVPB SCH ×3 (03:00→17:19)
[2017-07-24] MEDS ORDERED: INSULIN (NOVOLOG) ASPART 100 UNITS/ML 10ML VIAL ONE (06:32)
[2017-07-24] MEDS: sitaGLIPtin PHOSPHATE 100 MG TABLET (FP) PO SCH (07:05)
[2017-07-24] MEDS: HEPARIN NA (PORCINE) 5,000 UNITS/ML 1ML VIAL SQ SCH ×3 (07:05→22:05)
[2017-07-24] MEDS: INSULIN SLIDING SCALE (NOVOLOG) 1 VIAL SQ SCH ×4 (07:06→22:17)
[2017-07-24 08:52] LABS: BASOPHIL 0.4 % (0-2.0); EOSINOPHIL 1.4 % (0-4.5); MCH 31.2 pg (25.7-33.7); MCHC 33.1 g/dl (32.0-35.9); MEAN CELL VOLUME 94.4 fl (80-96); MEAN PLT VOLUME 8.3 fl (7.5-11.1); NEUTROPHILS 79.4 % (42.8-82.8); PLATELET COUNT 387 K/MM3 (134-434); WHITE BLOOD COUNT 12.5 K/mm3 (4.0-10.0)
--- NOTE | 2017-07-24 10:08 | PN ---
Progress Note (short form) - Note Progress Note: Ortho Pt seen and examined. feeling much better Selected Entries 07/24/17 06:00 Temperature 98.8 F Pulse Rate 99 H Respiratory 18 Rate Blood Pressure 136/77 Laboratory Tests 07/24/17 07:12 WBC 12.5 H Hgb 13.3 Hct 40.2 Plt Count 387 right knee no effusion, no erythema, rom 5-110, calf swollen, slight erythema, nvi a/p Right LE cellulitis, right knee djd continue abx as per ID PT, wbat dvt ppx elevation february d/c from ortho pov d/w Dr. Kline
[2017-07-24] MEDS ORDERED: PT OWN MED DRAWER 7, Y5N ONE (10:09)
[2017-07-24] MEDS: amLODIPine BESYLATE 10 MG TABLET (FP) PO SCH (10:28)
[2017-07-24] MEDS: LISINOPRIL 20 MG TABLET (FP) PO SCH (10:28)
--- NOTE | 2017-07-24 13:41 | PN ---
Physical Exam: SUBJECTIVE: Patient seen and examined. Says his pain is much better today. No acute events overnight. Offers no new complaints today. Denies dizziness, fever , sob, chest pain. OBJECTIVE: Vital Signs Period Temp Pulse Resp BP Sys/Jasmine Pulse Ox Last 24 Hr 97.6 F-99.1 F 92-99 18-18 103-136/62-77 96 GENERAL: Awake, alert, and fully oriented, in no acute distress EYES: conjunctiva clear LUNGS: No distress, speaks full sentences, clear to auscultation bilaterally HEART: Regular rate and rhythm, normal S1 and S2, no murmurs, rubs or gallops ABDOMEN: Soft, nontender, normoactive bowel sounds. No guarding, no rebound. No masses EXTREMITIES: Decreased Right knee ROM, No RLE tenderness (improved), 1+ pitting edema and warmth compared to left leg. Laboratory Results - last 24 hr 07/23/17 07/23/17 07/24/17 17:17 23:17 07:05 WBC RBC Hgb Hct MCV MCH MCHC RDW Plt Count MPV Neutrophils % Lymphocytes % Monocytes % Eosinophils % Basophils % POC Glucometer 185 177 174 07/24/17 07/24/17 07:12 12:22 WBC 12.5 H RBC 4.26 Hgb 13.3 Hct 40.2 MCV 94.4 MCH 31.2 MCHC 33.1 RDW 14.0 Plt Count 387 MPV 8.3 Neutrophils % 79.4 Lymphocytes % 9.7 D Monocytes % 9.1 Eosinophils % 1.4 Basophils % 0.4 POC Glucometer 187 Active Medications Generic Name Dose Route Start Last Admin Trade Name Daylin PRN Reason Stop Dose Admin Acetaminophen 650 mg 07/21/17 00:18 Tylenol - PO Q6H PRN FEVER OR PAIN Acetaminophen 325 mg 07/21/17 00:32 07/23/17 23:27 Tylenol - PO 325 mg Q6H PRN Administration PAIN LEVEL 6-10 Amlodipine Besylate 10 mg 07/20/17 10:00 07/24/17 10:28 Norvasc - PO 10 mg DAILY ZAYRA Administration Atorvastatin Calcium 40 mg 07/20/17 22:00 07/23/17 23:14 Lipitor - PO 40 mg HS ZAYRA Administration Heparin Sodium (Porcine) 5,000 unit 07/19/17 14:30 07/24/17 07:05 Heparin - SQ 5,000 unit TID ZAYRA Administration Meropenem 1 gm/ Dextrose 100 mls @ 200 mls/hr 07/20/17 18:00 07/24/17 10:28 IVPB 200 mls/hr Q8H-IV ZAYRA Administration Protocol Insulin Aspart 1 vial 07/19/17 22:00 07/24/17 12:26 Novolog Vial Sliding Scale - SQ 2 units ACHS ZAYRA Administration Protocol Insulin Detemir 10 units 07/23/17 22:00 07/23/17 23:14 Levemir Vial SQ 10 units HS ZAYRA Administration Lisinopril 40 mg 07/20/17 10:00 07/24/17 10:28 Prinivil PO 40 mg DAILY ZAYRA Administration Sitagliptin Phosphate 100 mg 07/23/17 11:30 07/24/17 07:05 Januvia - PO 100 mg DAILY@0700 ZAYRA Administration xray- shows 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 # Hematoma of Right Leg s/p fall and trauma -on home aspirin, now held -leg circumference today 15 inches -cannot MRI because of leg hardware -ct scan- + hematoma/fluid collection in medial calf #Severe Sepsis secondary to RLE Cellulitis -improved -Lt TKR in 1998 and Rt TKR in 2003 -history of posterior neck staph infection (2014) -duplex negative -Continue Meropenem (abx day 6) -Vancomycin stopped. -Right knee is not septic at the present time per Ortho -right knee was aspirated- 20cc of clear fluid. -Fluid Analysis negative for infections #DM -Levemir 10 U HS -Januvia 100mg PO daily -insulin sliding scale -A1c 8.8 -will monitor #HTN/CAD -will monitor -continue home Norvasc 10, Lisinopril 40 -contine ASA, Lipitor 40 #DVT PPX: -Hep SQ 5000 TID PT for deconditioning. Visit type - Emergency Visit Emergency Visit: Yes ED Registration Date: 07/19/17 Care time: The patient presented to the Emergency Department on the above date and was hospitalized for further evaluation of their emergent condition. - New Patient This patient is new to me today: No - Critical Care Critical Care patient: No
--- NOTE | 2017-07-24 15:02 | PN ---
Progress Note, Physician History of Present Illness: stable no new issues - Current Medication List Current Medications: Active Medications Acetaminophen (Tylenol -) 650 mg PO Q6H PRN PRN Reason: FEVER OR PAIN Acetaminophen (Tylenol -) 325 mg PO Q6H PRN PRN Reason: PAIN LEVEL 6-10 Last Admin: 07/23/17 23:27 Dose: 325 mg Amlodipine Besylate (Norvasc -) 10 mg PO DAILY [facility] Last Admin: 07/24/17 10:28 Dose: 10 mg Atorvastatin Calcium (Lipitor -) 40 mg PO HS [facility] Last Admin: 07/23/17 23:14 Dose: 40 mg Heparin Sodium (Porcine) (Heparin -) 5,000 unit SQ TID [facility] Last Admin: 07/24/17 07:05 Dose: 5,000 unit Meropenem 1 gm/ Dextrose 100 mls @ 200 mls/hr IVPB Q8H-IV ZAYRA PRN Reason: Protocol Last Admin: 07/24/17 10:28 Dose: 200 mls/hr Insulin Aspart (Novolog Vial Sliding Scale -) 1 vial SQ ACHS [facility] PRN Reason: Protocol Last Admin: 07/24/17 12:26 Dose: 2 units Insulin Detemir (Levemir Vial) 10 units SQ HS [facility] Last Admin: 07/23/17 23:14 Dose: 10 units Lisinopril (Prinivil) 40 mg PO DAILY [facility] Last Admin: 07/24/17 10:28 Dose: 40 mg Sitagliptin Phosphate (Januvia -) 100 mg PO DAILY@0700 [facility] Last Admin: 07/24/17 07:05 Dose: 100 mg - Objective Vital Signs: Vital Signs Temperature 100.0 F H 07/24/17 14:34 Pulse Rate 103 H 07/24/17 14:34 Respiratory Rate 18 07/24/17 06:00 Blood Pressure 126/67 07/24/17 14:34 O2 Sat by Pulse Oximetry (%) 96 07/23/17 21:00 Constitutional: Yes: No Distress, Calm Cardiovascular: Yes: Regular Rate and Rhythm Respiratory: Yes: Regular, CTA Bilaterally Gastrointestinal: Yes: Normal Bowel Sounds, Soft Musculoskeletal: Yes: WNL Extremities: Yes: Other Neurological: Yes: Alert, Oriented Psychiatric: Yes: Alert, Oriented Labs: CBC, BMP 07/24/17 07:12 07/20/17 06:00 INR, PTT INR 1.00 (0.82-1.09) 07/19/17 09:40 Assessment/Plan Problem List - Problems (1) Leg edema, right Code(s): R60.0 - LOCALIZED EDEMA cellulitits of the rt ;eg plan wbc trending down will deescalate abx in a day or so
[2017-07-24] MEDS: ACETAMINOPHEN 325 MG TABLET (FP) PO PRN (17:20)
--- NOTE | 2017-07-24 19:08 | PN ---
Teaching Attending Note Name of Resident: Kalpana John ATTENDING PHYSICIAN STATEMENT I saw and evaluated the patient. I reviewed the resident's note and discussed the case with the resident. I agree with the resident's findings and plan as documented. SUBJECTIVE: pain is better , has no fever or chills. OBJECTIVE: NAD CV : RRR Lungs: minimal crackles at bases Ext: R calf and leg with resolved erythema . DP 2+ b/l . no knee effusion detected. ASSESSMENT AND PLAN: A pleasant 67 y/o man with h/o HTN, DM, and L TKR who presented with R knee and calf pain and was found to have cellulitis and hematoma of the calf 1- Hematoma of R leg: in the setting of a fall and trauma while on aspirin Leg exam is better , and leukocytosis has slightly improved - Cont to hold ASA - monitor leukocytosis , and check for fever ..( other source of infection or developing abscess ) 2- Cellulitis with severe sepsis: improved . - cont meropenem - No evidence of joint infection. synovial fluid cx Neg 3- DM : better controlled - cont SSI - cont januvia -cont levemir 10 untis HS . will adjust if needed 4- HTN: cont lisinopril Dispo : HLOC
[2017-07-24] MEDS ORDERED: PANTOPRAZOLE 40 MG TABLET (FP) PO ONE (21:51)
[2017-07-24] MEDS: INSULIN DETEMIR 100 UNITS/ML MDV SQ SCH (22:05)
[2017-07-24] MEDS: ATORVASTATIN CA 40 MG TABLET (FP) PO SCH (22:05)
[2017-07-25] MEDS ORDERED: PT OWN MED DRAWER 7, Y5N ONE (01:47)
[2017-07-25] MEDS: MEROPENEM 1 GM in DEXTROSE 5%-WATER - 100 ML IVPB SCH ×3 (01:54→17:21)
[2017-07-25] MEDS: sitaGLIPtin PHOSPHATE 100 MG TABLET (FP) PO SCH (06:11)
[2017-07-25] MEDS: INSULIN SLIDING SCALE (NOVOLOG) 1 VIAL SQ SCH ×4 (06:13→21:57)
[2017-07-25] MEDS: HEPARIN NA (PORCINE) 5,000 UNITS/ML 1ML VIAL SQ SCH ×3 (06:13→21:56)
[2017-07-25 07:55] LABS: MCH 31.6 pg (25.7-33.7); MCHC 33.2 g/dl (32.0-35.9); MEAN CELL VOLUME 95.3 fl (80-96); MEAN PLT VOLUME 8.6 fl (7.5-11.1); PLATELET COUNT 431 K/MM3 (134-434); WHITE BLOOD COUNT 10.9 K/mm3 (4.0-10.0)
[2017-07-25 08:22] LABS: ANION GAP 6 (8-16); CALCIUM 9.1 mg/dL (8.5-10.1); CO2 30 mmol/L (21-32); CREATININE 0.8 mg/dL (0.7-1.3); GLUCOSE,RANDOM 172 mg/dL (74-106)
--- NOTE | 2017-07-25 08:22 | PN ---
Addendum entered and electronically signed by Kalpana John RES 07/25/17 12:07: Temp of 100.5 6pm yesterday. -afebrile now -wbc trending down. -will monitor Original Note: Physical Exam: SUBJECTIVE: Patient seen and examined. No acute events overnight. Says his right leg hurts a little more than yesterday. He denies SOB, chest pain, headache, dizziness, nausea and vomiting. OBJECTIVE: Vital Signs Period Temp Pulse Resp BP Sys/Jasmine Pulse Ox Last 24 Hr 98.0 F-100.5 F 94-103 18-20 108-126/59-74 96-97 GENERAL: Awake, alert, and fully oriented, in no acute distress EYES: conjunctiva clear LUNGS: No distress, speaks full sentences, clear to auscultation bilaterally HEART: Regular rate and rhythm, normal S1 and S2, no murmurs, rubs or gallops ABDOMEN: Soft, nontender, normoactive bowel sounds. No guarding, no rebound. No masses EXTREMITIES: Decreased Right knee ROM, NO change in circumference (15 inches). tenderness today, 1+ pitting edema and warmth compared to left leg. Non erythematous. Right calf tighter, harder than left Laboratory Results - last 24 hr 07/24/17 07/24/17 07/24/17 07:12 12:22 17:14 WBC 12.5 H RBC 4.26 Hgb 13.3 Hct 40.2 MCV 94.4 MCH 31.2 MCHC 33.1 RDW 14.0 Plt Count 387 MPV 8.3 Neutrophils % 79.4 Lymphocytes % 9.7 D Monocytes % 9.1 Eosinophils % 1.4 Basophils % 0.4 POC Glucometer 187 195 07/24/17 07/25/17 22:15 05:48 WBC RBC Hgb Hct MCV MCH MCHC RDW Plt Count MPV Neutrophils % Lymphocytes % Monocytes % Eosinophils % Basophils % POC Glucometer 200 176 Active Medications Generic Name Dose Route Start Last Admin Trade Name Freq PRN Reason Stop Dose Admin Acetaminophen 650 mg 07/21/17 00:18 07/24/17 17:20 Tylenol - PO 650 mg Q6H PRN Administration FEVER OR PAIN Acetaminophen 325 mg 07/21/17 00:32 07/23/17 23:27 Tylenol - PO 325 mg Q6H PRN Administration PAIN LEVEL 6-10 Amlodipine Besylate 10 mg 07/20/17 10:00 07/24/17 10:28 Norvasc - PO 10 mg DAILY ZAYRA Administration Atorvastatin Calcium 40 mg 07/20/17 22:00 07/24/17 22:05 Lipitor - PO 40 mg HS ZAYRA Administration Heparin Sodium (Porcine) 5,000 unit 07/19/17 14:30 07/25/17 06:13 Heparin - SQ 5,000 unit TID ZAYRA Administration Meropenem 1 gm/ Dextrose 100 mls @ 200 mls/hr 07/20/17 18:00 07/25/17 01:54 IVPB 200 mls/hr Q8H-IV ZAYRA Administration Protocol Insulin Aspart 1 vial 07/19/17 22:00 07/25/17 06:13 Novolog Vial Sliding Scale - SQ 2 units ACHS ZAYRA Administration Protocol Insulin Detemir 10 units 07/23/17 22:00 07/24/17 22:05 Levemir Vial SQ 10 units HS ZAYRA Administration Lisinopril 40 mg 07/20/17 10:00 07/24/17 10:28 Prinivil PO 40 mg DAILY ZAYRA Administration Sitagliptin Phosphate 100 mg 07/23/17 11:30 07/25/17 06:11 Januvia - PO 100 mg DAILY@0700 ZAYRA Administration ASSESSMENT/PLAN: 67 yo M with a PMHx of HTN, DM, B/L TKR, posterior neck staph infection (2014), presented to the ED with calf pain and edema and was found to have a hematoma of right leg s/p mechanical fall and severe sepsis secondary to RLE cellulitis. # Hematoma of Right Leg s/p fall and trauma -on home aspirin, now held -cannot MRI because of leg hardware -ct scan- + hematoma/fluid collection in medial calf -Duplex to r/o DVT #Severe Sepsis secondary to RLE Cellulitis -improved -Lt TKR in 1998 and Rt TKR in 2003 -history of posterior neck staph infection (2014) -Continue Meropenem (abx day 7) -Right knee is not septic at the present time per Ortho -Fluid Analysis negative for infections #DM -Levemir 10 U HS -Januvia 100mg PO daily -insulin sliding scale -A1c 8.8 -will monitor #HTN/CAD -will monitor -continue home Norvasc 10, Lisinopril 40 -contine ASA, Lipitor 40 #DVT PPX: -Hep SQ 5000 TID PT for deconditioning. Visit type - Emergency Visit Emergency Visit: Yes ED Registration Date: 07/19/17 Care time: The patient presented to the Emergency Department on the above date and was hospitalized for further evaluation of their emergent condition. - New Patient This patient is new to me today: No - Critical Care Critical Care patient: No
[2017-07-25] MEDS: LISINOPRIL 20 MG TABLET (FP) PO SCH (09:42)
[2017-07-25] MEDS: amLODIPine BESYLATE 10 MG TABLET (FP) PO SCH (09:42)
[2017-07-25] MEDS: ACETAMINOPHEN 325 MG TABLET (FP) PO PRN (12:47)
[2017-07-25] MEDS ORDERED: oxyCODONE HCL 5 MG TABLET PO ONE (14:00)
--- NOTE | 2017-07-25 14:29 | PN ---
Progress Note, Physician History of Present Illness: stable c/o pain in the leg swelling still is present low grade fever - Current Medication List Current Medications: Active Medications Acetaminophen (Tylenol -) 650 mg PO Q6H PRN PRN Reason: FEVER OR PAIN Last Admin: 07/25/17 12:47 Dose: 650 mg Acetaminophen (Tylenol -) 325 mg PO Q6H PRN PRN Reason: PAIN LEVEL 6-10 Last Admin: 07/23/17 23:27 Dose: 325 mg Amlodipine Besylate (Norvasc -) [address] [facility] Last Admin: 07/25/17 09:42 Dose: 10 mg Atorvastatin Calcium (Lipitor -) [address] [facility] Last Admin: 07/24/17 22:05 Dose: 40 mg Heparin Sodium (Porcine) (Heparin -) 5,[address] [facility] Last Admin: 07/25/17 14:05 Dose: 5,000 unit Meropenem 1 gm/ Dextrose 100 mls @ 200 mls/hr IVPB Q8H-IV ZAYRA PRN Reason: Protocol Last Admin: 07/25/17 09:43 Dose: 200 mls/hr Insulin Aspart (Novolog Vial Sliding Scale -) [address] [facility] PRN Reason: Protocol Last Admin: 07/25/17 11:38 Dose: 4 units Insulin Detemir (Levemir Vial) [address] [facility] Last Admin: 07/24/17 22:05 Dose: 10 units Lisinopril (Prinivil) [address] [facility] Last Admin: 07/25/17 09:42 Dose: 40 mg Sitagliptin Phosphate (Januvia -) 100 mg PO DAILY@0700 [facility] Last Admin: 07/25/17 06:11 Dose: 100 mg - Objective Vital Signs: Vital Signs Temperature 99 F 07/25/17 14:05 Pulse Rate 75 07/25/17 14:05 Respiratory Rate 20 07/25/17 14:05 Blood Pressure 123/73 07/25/17 14:05 O2 Sat by Pulse Oximetry (%) 97 07/24/17 22:00 Constitutional: Yes: No Distress, Calm Cardiovascular: Yes: Regular Rate and Rhythm Respiratory: Yes: Regular, CTA Bilaterally Gastrointestinal: Yes: Normal Bowel Sounds, Soft Musculoskeletal: Yes: Other Extremities: Yes: Erythema, Other Neurological: Yes: Alert, Oriented Psychiatric: Yes: Alert, Oriented Labs: CBC, BMP 07/25/17 07:25 07/25/17 07:25 INR, PTT INR 1.00 (0.82-1.09) 07/19/17 09:40 Assessment/Plan Problem List - Problems (1) Leg edema, right Code(s): R60.0 - LOCALIZED EDEMA cellulitits of the rt ;eg plan wbc trending down continue abx for now patient for doppler will check out the scan
--- NOTE | 2017-07-25 15:49 | PN ---
Teaching Attending Note Name of Resident: Kalpana John ATTENDING PHYSICIAN STATEMENT I saw and evaluated the patient. I reviewed the resident's note and discussed the case with the resident. I agree with the resident's findings and plan as documented. SUBJECTIVE: no fever or chills. pain has much improved. had low grade fever yesterday OBJECTIVE: NAD CV : RRR Lungs: minimal crackles at bases Ext: R calf and leg with resolved erythema . DP 2+ b/l . no knee effusion detected. ASSESSMENT AND PLAN: A pleasant 67 y/o man with h/o HTN, DM, and L TKR who presented with R knee and calf pain and was found to have cellulitis and hematoma of the calf 1- Hematoma of R leg with cellulitis : in the setting of a fall and trauma while on aspirin leg exam is better, leukocytosis has imrpoved but he had fever last night - Cont to hold ASA - Doppler US to r/o DVT as cause of fever - cont meropenem 2- DM: better controlled - cont SSI - cont januvia -Increase levemir to 13 units Q HS . 3- HTN: cont lisinopril Dispo : HLOC
--- NOTE | 2017-07-25 16:22 | PN ---
Progress Note (short form) - Note Progress Note: Pt seen and examined. His right knee looks normal. He has no c/o pain. AVSS Right knee, no effusion, not swollen, no erythema, non tender, good ROM. Imp Doing very well. NTD from an ortho pov wbat Can DC from an ortho pov
[2017-07-25] MEDS ORDERED: ACETAMINOPHEN 325 MG TABLET (FP) PO PRN (17:43)
[2017-07-25] MEDS: INSULIN DETEMIR 100 UNITS/ML MDV SQ SCH (21:55)
[2017-07-25] MEDS: ATORVASTATIN CA 40 MG TABLET (FP) PO SCH (21:56)
[2017-07-25] MEDS: oxyCODONE HCL 5 MG TABLET PO PRN (21:58)
[2017-07-26] MEDS ORDERED: PT OWN MED DRAWER 7, Y5N ONE ×3 (02:08→17:08)
[2017-07-26] MEDS: MEROPENEM 1 GM in DEXTROSE 5%-WATER - 100 ML IVPB SCH ×4 (02:11→21:09)
[2017-07-26] MEDS: HEPARIN NA (PORCINE) 5,000 UNITS/ML 1ML VIAL SQ SCH ×5 (06:11→21:09)
[2017-07-26] MEDS: sitaGLIPtin PHOSPHATE 100 MG TABLET (FP) PO SCH (06:12)
[2017-07-26] MEDS: INSULIN SLIDING SCALE (NOVOLOG) 1 VIAL SQ SCH ×4 (06:12→21:10)
[2017-07-26] MEDS: oxyCODONE HCL 5 MG TABLET PO PRN ×2 (08:13→16:54)
[2017-07-26 08:16] LABS: BASOPHIL 0.4 % (0-2.0); MCH 31.4 pg (25.7-33.7); MEAN PLT VOLUME 8.5 fl (7.5-11.1); PLATELET COUNT 433 K/MM3 (134-434); RDW 13.7 % (11.9-15.9); WHITE BLOOD COUNT 12.2 K/mm3 (4.0-10.0)
[2017-07-26] MEDS: LISINOPRIL 20 MG TABLET (FP) PO SCH (09:59)
[2017-07-26] MEDS: amLODIPine BESYLATE 10 MG TABLET (FP) PO SCH (09:59)
[2017-07-26] MEDS ORDERED: INSULIN (NOVOLOG) ASPART 100 UNITS/ML 10ML VIAL ONE (12:07)
--- NOTE | 2017-07-26 13:51 | PN ---
Progress Note, Physician History of Present Illness: stable wbc on the higher side says mild pain - Current Medication List Current Medications: Active Medications Acetaminophen (Tylenol -) 650 mg PO Q6H PRN PRN Reason: FEVER OR PAIN Last Admin: 07/25/17 12:47 Dose: 650 mg Acetaminophen (Tylenol -) 325 mg PO Q6H PRN PRN Reason: FEVER OR PAIN Amlodipine Besylate (Norvasc -) 10 mg PO DAILY [facility] Last Admin: 07/26/17 09:59 Dose: 10 mg Atorvastatin Calcium (Lipitor -) 40 mg PO HS [facility] Last Admin: 07/25/17 21:56 Dose: 40 mg Heparin Sodium (Porcine) (Heparin -) 5,000 unit SQ TID [facility] Last Admin: 07/26/17 06:11 Dose: 5,000 unit Meropenem 1 gm/ Dextrose 100 mls @ 200 mls/hr IVPB Q8H-IV ZAYRA PRN Reason: Protocol Last Admin: 07/26/17 12:39 Dose: 200 mls/hr Insulin Aspart (Novolog Vial Sliding Scale -) 1 vial SQ ACHS [facility] PRN Reason: Protocol Last Admin: 07/26/17 12:10 Dose: 6 units Insulin Detemir (Levemir Vial) 13 units SQ [facility] Last Admin: 07/25/17 21:55 Dose: 13 units Lisinopril (Prinivil) 40 mg PO DAILY [facility] Last Admin: 07/26/17 09:59 Dose: 40 mg Oxycodone HCl (Roxicodone -) 5 mg PO Q6H PRN Last Admin: 07/26/17 08:13 Dose: 5 mg Sitagliptin Phosphate (Januvia -) 100 mg PO DAILY@0700 [facility] Last Admin: 07/26/17 06:12 Dose: 100 mg - Objective Vital Signs: Vital Signs Temperature 98.5 F 07/26/17 09:58 Pulse Rate 89 07/26/17 09:58 Respiratory Rate 20 07/26/17 09:58 Blood Pressure 118/68 07/26/17 09:58 O2 Sat by Pulse Oximetry (%) 98 07/25/17 21:00 Constitutional: Yes: Calm, Mild Distress Cardiovascular: Yes: Regular Rate and Rhythm Respiratory: Yes: Regular, CTA Bilaterally Gastrointestinal: Yes: Normal Bowel Sounds, Soft Musculoskeletal: Yes: Other Extremities: Yes: Erythema (minimal), Other Neurological: Yes: Alert, Oriented Psychiatric: Yes: Alert, Oriented Labs: CBC, BMP 07/26/17 06:10 07/25/17 19:35 INR, PTT INR 1.00 (0.82-1.09) 07/19/17 09:40 Assessment/Plan Problem List - Problems (1) Leg edema, right Code(s): R60.0 - LOCALIZED EDEMA cellulitits of the rt ;eg plan wbc trending down continue abx for now will consider deescalating after seeing tomorrows results dvt studies negative
--- NOTE | 2017-07-26 15:39 | PN ---
Progress Note (short form) - Note Progress Note: Subjective: no fever or chills . has minimal pain in leg Objective: Vital Signs: Last Vital Signs Temp Pulse Resp BP Pulse Ox 98.6 F 95 H 18 114/62 98 07/26/17 14:26 07/26/17 14:26 07/26/17 14:26 07/26/17 14:26 07/25/17 21:00 Laboratory Results - last 24 hr 07/25/17 07/25/17 07/25/17 16:08 18:00 19:35 WBC RBC Hgb Hct MCV MCH MCHC RDW Plt Count MPV Neutrophils % Lymphocytes % Monocytes % Eosinophils % Basophils % Potassium Cancelled 4.8 POC Glucometer 175 07/25/17 07/26/17 07/26/17 21:53 06:10 06:11 WBC 12.2 H RBC 4.20 Hgb 13.2 Hct 39.9 MCV 95.0 MCH 31.4 MCHC 33.0 RDW 13.7 Plt Count 433 MPV 8.5 Neutrophils % 64.0 Lymphocytes % 19.8 D Monocytes % 12.8 H Eosinophils % 3.0 D Basophils % 0.4 Potassium POC Glucometer 276 153 07/26/17 12:05 WBC RBC Hgb Hct MCV MCH MCHC RDW Plt Count MPV Neutrophils % Lymphocytes % Monocytes % Eosinophils % Basophils % Potassium POC Glucometer 251 Physical Exam: NAD CV: RRR Lungs: minimal crackles at bases Ext: R calf and leg with resolved erythema . DP 2+ b/l . no knee effusion detected. ASSESSMENT AND PLAN: A pleasant 67 y/o man with h/o HTN, DM, and L TKR who presented with R knee and calf pain and was found to have cellulitis and hematoma of the calf 1- Hematoma of R leg with cellulitis: in the setting of a fall and trauma while on aspirin no more fever in 2 days - Cont to hold ASA - cont meropenem. possible switch to po abx tomorrow - encourage ambulation 2- DM: better controlled - cont SSI - cont januvia - levemir 13 units Q HS . 3- HTN: cont lisinopril Dispo : HLOC repeat PT tomorrow . possible dc tomorrow Visit type - Emergency Visit Emergency Visit: Yes ED Registration Date: 07/19/17 Care time: The patient presented to the Emergency Department on the above date and was hospitalized for further evaluation of their emergent condition. - New Patient This patient is new to me today: No - Critical Care Critical Care patient: No
[2017-07-26] MEDS: ATORVASTATIN CA 40 MG TABLET (FP) PO SCH (21:09)
[2017-07-26] MEDS: INSULIN DETEMIR 100 UNITS/ML MDV SQ SCH (21:10)
[2017-07-27] MEDS: MEROPENEM 1 GM in DEXTROSE 5%-WATER - 100 ML IVPB SCH ×2 (02:32→09:18)
[2017-07-27] MEDS: sitaGLIPtin PHOSPHATE 100 MG TABLET (FP) PO SCH (06:15)
[2017-07-27] MEDS: HEPARIN NA (PORCINE) 5,000 UNITS/ML 1ML VIAL SQ SCH ×3 (06:20→22:51)
[2017-07-27] MEDS: INSULIN SLIDING SCALE (NOVOLOG) 1 VIAL SQ SCH ×4 (06:21→22:53)
[2017-07-27 07:03] LABS: BASOPHIL 0.8 % (0-2.0); EOSINOPHIL 2.7 % (0-4.5); MCH 31.6 pg (25.7-33.7); MCHC 34.1 g/dl (32.0-35.9); MEAN CELL VOLUME 92.7 fl (80-96); NEUTROPHILS 70.9 % (42.8-82.8); PLATELET COUNT 448 K/MM3 (134-434); WHITE BLOOD COUNT 10.8 K/mm3 (4.0-10.0)
[2017-07-27] MEDS ORDERED: PT OWN MED DRAWER 7, Y5N ONE ×2 (09:13→09:31)
[2017-07-27] MEDS: amLODIPine BESYLATE 10 MG TABLET (FP) PO SCH (09:16)
[2017-07-27] MEDS: LISINOPRIL 20 MG TABLET (FP) PO SCH (09:17)
--- NOTE | 2017-07-27 16:13 | PN ---
Teaching Attending Note Name of Resident: Tam Holliday ATTENDING PHYSICIAN STATEMENT I saw and evaluated the patient. I reviewed the resident's note and discussed the case with the resident. I agree with the resident's findings and plan as documented. SUBJECTIVE: no fever or chills , has little pain in R leg. was able to ambulate with help . OBJECTIVE: NAD CV: RRR Lungs: minimal crackles at bases Ext: R calf and leg with resolved erythema and hyperpigmented rigid area. DP 2 + b/l . no knee effusion detected. ASSESSMENT AND PLAN: A pleasant 67 y/o man with h/o HTN, DM, and L TKR who presented with R knee and calf pain and was found to have cellulitis and hematoma of the calf 1- Hematoma of R leg with cellulitis: in the setting of a fall and trauma while on aspirin - Cont to hold ASA - probably can switch to pO abx awaiting ID Recs - PT 2- DM: better controlled - cont SSI - cont januvia he juwan be dc home on this regimen 3- HTN: cont lisinopril Dispo : did not do well with PT. CM updated. will arrange for SNF . hopefully can leave tomorrow
--- NOTE | 2017-07-27 16:43 | PN ---
Progress Note, Physician History of Present Illness: stable no issues feels better - Current Medication List Current Medications: Active Medications Acetaminophen (Tylenol -) 650 mg PO Q6H PRN PRN Reason: FEVER OR PAIN Last Admin: 07/25/17 12:47 Dose: 650 mg Acetaminophen (Tylenol -) 325 mg PO Q6H PRN PRN Reason: FEVER OR PAIN Amlodipine Besylate (Norvasc -) 10 mg PO DAILY [facility] Last Admin: 07/27/17 09:16 Dose: 10 mg Atorvastatin Calcium (Lipitor -) 40 mg PO HS [facility] Last Admin: 07/26/17 21:09 Dose: 40 mg Heparin Sodium (Porcine) (Heparin -) 5,000 unit SQ TID [facility] Last Admin: 07/27/17 14:44 Dose: 5,000 unit Insulin Aspart (Novolog Vial Sliding Scale -) 1 vial SQ ACHS [facility] PRN Reason: Protocol Last Admin: 07/27/17 12:27 Dose: 4 units Insulin Detemir (Levemir Vial) 13 units SQ HS [facility] Last Admin: 07/26/17 21:10 Dose: 13 units Lisinopril (Prinivil) 40 mg PO DAILY [facility] Last Admin: 07/27/17 09:17 Dose: 40 mg Oxycodone HCl (Roxicodone -) 5 mg PO Q6H PRN Last Admin: 07/26/17 16:54 Dose: 5 mg Sitagliptin Phosphate (Januvia -) 100 mg PO DAILY@0700 [facility] Last Admin: 07/27/17 06:15 Dose: 100 mg - Objective Vital Signs: Vital Signs Temperature 98.7 F 07/27/17 14:21 Pulse Rate 113 H 07/27/17 14:21 Respiratory Rate 18 07/27/17 14:21 Blood Pressure 115/71 07/27/17 14:21 O2 Sat by Pulse Oximetry (%) 95 07/27/17 09:00 Constitutional: Yes: No Distress, Calm Cardiovascular: Yes: Regular Rate and Rhythm Respiratory: Yes: Regular, CTA Bilaterally Gastrointestinal: Yes: Normal Bowel Sounds, Soft Musculoskeletal: Yes: Other Extremities: Yes: Other Neurological: Yes: Alert, Oriented Psychiatric: Yes: Alert, Oriented Labs: CBC, BMP 07/27/17 05:40 07/25/17 19:35 INR, PTT INR 1.00 (0.82-1.09) 07/19/17 09:40 Assessment/Plan Problem List - Problems (1) Leg edema, right Code(s): R60.0 - LOCALIZED EDEMA cellulitits of the rt ;eg plan will stop abx monitor physio
--- NOTE | 2017-07-27 22:21 | PN ---
Physical Exam: NOTE: Late entry, patient seen and examined on 07/27 around 0830h SUBJECTIVE: 67yo Romanian-speaking M with significant history of recent mechanical fall onto R leg who initially presented to ED with R leg pain, edema, and slight erythematous area. Pt was found to have hematoma with possible cellulitis. Afebrile for past 24hrs. Pt admits to feeling well and has no new complaints at this time. Able to ambulate with PT help. OBJECTIVE: Vital Signs Period Temp Pulse Resp BP Sys/Jasmine Pulse Ox Last 24 Hr 98.7 F-99.3 F 89-113 16-18 115-134/60-75 95 GENERAL: The patient is awake, alert, and fully oriented, in no acute distress. HEENT: EOMI, PERRL, Moist mucosa LUNGS: CTA b/l no wheezes, rhonchi, or rales HEART: Slightly tachycardic, regular rhythm, no murmurs appreciated ABDOMEN: Soft, nontender, nondistended, normoactive bowel sounds EXTREMITIES: R posterior upper calf area of tenderness with increased toughness. No erythema noted. Significantly decreased edema compared to previous exams. Dorsalis pedis pulses 2+ bilaterally NEUROLOGICAL: Alert and oriented x3. Lower extremity sensation intact b/l throughout. Strength 5/5 bilaterally SKIN: Warm, dry, no rashes or lesions noted Laboratory Results - last 24 hr 07/27/17 07/27/17 07/27/17 05:40 06:15 12:06 WBC 10.8 H RBC 3.95 L Hgb 12.5 Hct 36.6 MCV 92.7 MCH 31.6 MCHC 34.1 RDW 14.0 Plt Count 448 H MPV 8.0 Neutrophils % 70.9 Lymphocytes % 14.5 D Monocytes % 11.1 H Eosinophils % 2.7 Basophils % 0.8 POC Glucometer 179 226 07/27/17 17:30 WBC RBC Hgb Hct MCV MCH MCHC RDW Plt Count MPV Neutrophils % Lymphocytes % Monocytes % Eosinophils % Basophils % POC Glucometer 175 Active Medications Generic Name Dose Route Start Last Admin Trade Name Freq PRN Reason Stop Dose Admin Acetaminophen 650 mg 07/21/17 00:18 07/25/17 12:47 Tylenol - PO 650 mg Q6H PRN Administration FEVER OR PAIN Acetaminophen 325 mg 07/25/17 17:43 Tylenol - PO Q6H PRN FEVER OR PAIN Amlodipine Besylate 10 mg 07/20/17 10:00 07/27/17 09:16 Norvasc - PO 10 mg DAILY [facility] Administration Atorvastatin Calcium 40 mg 07/20/17 22:00 07/26/17 21:09 Lipitor - PO 40 mg HS [facility] Administration Heparin Sodium (Porcine) 5,000 unit 07/26/17 16:15 07/27/17 14:44 Heparin - SQ 5,000 unit TID [facility] Administration Insulin Aspart 1 vial 07/19/17 22:00 07/27/17 17:38 Novolog Vial Sliding Scale - SQ 2 units ACHS [facility] Administration Protocol Insulin Detemir 13 units 07/25/17 22:00 07/26/17 21:10 Levemir Vial SQ 13 units HS [facility] Administration Lisinopril 40 mg 07/20/17 10:00 07/27/17 09:17 Prinivil PO 40 mg DAILY [facility] Administration Oxycodone HCl 5 mg 07/25/17 17:43 07/26/17 16:54 Roxicodone - PO 5 mg Q6H PRN Administration Sitagliptin Phosphate 100 mg 07/23/17 11:30 07/27/17 06:15 Januvia - PO 100 mg DAILY@0700 [facility] Administration ASSESSMENT/PLAN: 1) R Lower extremity hematoma --MRI soft tissues due to inability to use CT as a result of b/L TKR artifacts showed soft tissue fluid collection and no injury to ligaments of knee --Markedly improved --Continue to hold ASA --Pt failed PT with inability to walk more than 30ft before pain --Continue PT; goal for >50 ft --Per ID: can d/c meropenem and observe off antibiotics 2) DM --Levemir 13U SQ HS --Januvia 100mg PO qDaily --ISS for inbetween coverage --BGM 3) HTN --Norvasc 10mg PO qdaily --Lisinopril 40mg PO qDaily FEN: Fluids: Tolerating PO; not indicated Electrolyte abnormalities: None currently Nutrition: Diabetic Diet PPX: DVT - Heparin 5000U SQ TID Dispo: D/C planning pending ability to walk >50 ft with PT. SNF possibility. Case discussed with Dr. Ragini Holliday, DO - Internal Medicine PGY-1 Visit type - Emergency Visit Emergency Visit: No - New Patient This patient is new to me today: Yes Date on this admission: 07/27/17 - Critical Care Critical Care patient: No
[2017-07-27] MEDS: ATORVASTATIN CA 40 MG TABLET (FP) PO SCH (22:52)
[2017-07-27] MEDS: INSULIN DETEMIR 100 UNITS/ML MDV SQ SCH (22:52)
[2017-07-28] MEDS: HEPARIN NA (PORCINE) 5,000 UNITS/ML 1ML VIAL SQ SCH ×3 (06:29→21:22)
[2017-07-28] MEDS: sitaGLIPtin PHOSPHATE 100 MG TABLET (FP) PO SCH (06:29)
[2017-07-28] MEDS: INSULIN SLIDING SCALE (NOVOLOG) 1 VIAL SQ SCH ×4 (06:30→21:22)
[2017-07-28] MEDS: amLODIPine BESYLATE 10 MG TABLET (FP) PO SCH (09:48)
[2017-07-28] MEDS: LISINOPRIL 20 MG TABLET (FP) PO SCH (09:48)
--- NOTE | 2017-07-28 17:28 | PN ---
Progress Note, Physician History of Present Illness: stable no issues feels better - Current Medication List Current Medications: Active Medications Acetaminophen (Tylenol -) 650 mg PO Q6H PRN PRN Reason: FEVER OR PAIN Last Admin: 07/25/17 12:47 Dose: 650 mg Acetaminophen (Tylenol -) 325 mg PO Q6H PRN PRN Reason: FEVER OR PAIN Amlodipine Besylate (Norvasc -) 10 mg PO DAILY [facility] Last Admin: 07/28/17 09:48 Dose: 10 mg Atorvastatin Calcium (Lipitor -) 40 mg PO HS [facility] Last Admin: 07/27/17 22:52 Dose: 40 mg Heparin Sodium (Porcine) (Heparin -) 5,000 unit SQ TID [facility] Last Admin: 07/28/17 13:22 Dose: 5,000 unit Insulin Aspart (Novolog Vial Sliding Scale -) 1 vial SQ ACHS [facility] PRN Reason: Protocol Last Admin: 07/28/17 17:14 Dose: 2 units Insulin Detemir (Levemir Vial) 13 units SQ HS [facility] Last Admin: 07/27/17 22:52 Dose: 13 units Lisinopril (Prinivil) 40 mg PO DAILY [facility] Last Admin: 07/28/17 09:48 Dose: 40 mg Oxycodone HCl (Roxicodone -) 5 mg PO Q6H PRN Last Admin: 07/26/17 16:54 Dose: 5 mg Sitagliptin Phosphate (Januvia -) 100 mg PO DAILY@0700 [facility] Last Admin: 07/28/17 06:29 Dose: 100 mg - Objective Vital Signs: Vital Signs Temperature 98.8 F 07/28/17 14:41 Pulse Rate 96 H 07/28/17 14:41 Respiratory Rate 18 07/28/17 14:41 Blood Pressure 146/60 07/28/17 14:41 O2 Sat by Pulse Oximetry (%) 93 L 07/28/17 09:00 Constitutional: Yes: No Distress, Calm Cardiovascular: Yes: Regular Rate and Rhythm Respiratory: Yes: Regular, CTA Bilaterally Gastrointestinal: Yes: Normal Bowel Sounds, Soft Musculoskeletal: Yes: Other Extremities: Yes: Other Neurological: Yes: Alert, Oriented Psychiatric: Yes: Alert, Oriented Labs: CBC, BMP 07/27/17 05:40 07/25/17 19:35 INR, PTT INR 1.00 (0.82-1.09) 07/19/17 09:40 Assessment/Plan Problem List - Problems (1) Leg edema, right Code(s): R60.0 - LOCALIZED EDEMA cellulitits of the rt ;eg plan stable off of abx await PT rest as per primary team
--- NOTE | 2017-07-28 19:43 | PN ---
Teaching Attending Note Name of Resident: Tam Holliday ATTENDING PHYSICIAN STATEMENT I saw and evaluated the patient. I reviewed the resident's note and discussed the case with the resident. I agree with the resident's findings and plan as documented. SUBJECTIVE: pain has improved OBJECTIVE: NAD CV: RRR Lungs: minimal crackles at bases Ext: R calf and leg with resolved erythema and hyperpigmented rigid area. DP 2 + b/l . no knee effusion detected. ASSESSMENT AND PLAN: A pleasant 67 y/o man with h/o HTN, DM, and L TKR who presented with R knee and calf pain and was found to have cellulitis and hematoma of the calf 1- Hematoma of R leg with cellulitis: in the setting of a fall and trauma while on aspirin - Cont to hold ASA ( takes for primary prophylaxis ) -off abx . stable - PT 2- DM: better controlled - cont SSI - cont januvia - cont levemir 13 units - resume metformin at dc 3- HTN: cont lisinopril Dispo : did not do well with PT. pending placement unless he passes PT tomorrow
[2017-07-28] MEDS ORDERED: INSULIN (NOVOLOG) ASPART 100 UNITS/ML 10ML VIAL ONE (20:56)
--- NOTE | 2017-07-28 21:00 | PN ---
Physical Exam: NOTE: Pt seen and examined 07/28 0815h SUBJECTIVE: No acute events overnight. Pt received physical therapy today, but was limited to only 40 feet using a roller walker. Physical therapy concerned about pt favouring left side and not being able to weight-bear on his R leg due to pain. Pt feels good and has no new complaints today. OBJECTIVE: Vital Signs Period Temp Pulse Resp BP Sys/Jasmine Pulse Ox Last 24 Hr 98.5 F-98.9 F 62-936 18-20 117-146/60-79 93-95 GENERAL: The patient is awake, alert, and fully oriented, in no acute distress. HEENT: EOMI, PERRL, Moist mucosa LUNGS: CTA b/l no wheezes, rhonchi, or rales HEART: Slightly tachycardic, regular rhythm, no murmurs appreciated ABDOMEN: Soft, nontender, nondistended, normoactive bowel sounds EXTREMITIES: R posterior upper calf area of tenderness with increased toughness. No erythema noted. Significantly decreased edema compared to previous exams. Dorsalis pedis pulses 2+ bilaterally NEUROLOGICAL: Alert and oriented x3. Lower extremity sensation intact b/l throughout. Strength 5/5 bilaterally SKIN: Warm, dry, no rashes or lesions noted Laboratory Results - last 24 hr 07/27/17 07/28/17 07/28/17 22:50 05:49 11:07 POC Glucometer 194 186 213 07/28/17 16:20 POC Glucometer 187 Active Medications Generic Name Dose Route Start Last Admin Trade Name Freq PRN Reason Stop Dose Admin Acetaminophen 650 mg 07/21/17 00:18 07/25/17 12:47 Tylenol - PO 650 mg Q6H PRN Administration FEVER OR PAIN Acetaminophen 325 mg 07/25/17 17:43 Tylenol - PO Q6H PRN FEVER OR PAIN Amlodipine Besylate 10 mg 07/20/17 10:00 07/28/17 09:48 Norvasc - PO 10 mg DAILY [facility] Administration Atorvastatin Calcium 40 mg 07/20/17 22:00 07/27/17 22:52 Lipitor - PO 40 mg HS [facility] Administration Heparin Sodium (Porcine) 5,000 unit 07/26/17 16:15 07/28/17 13:22 Heparin - SQ 5,000 unit TID [facility]AY[facility] Administration Insulin Aspart 1 vial 07/19/17 22:00 07/28/17 17:14 Novolog Vial Sliding Scale - SQ 2 units ACHS [facility] Administration Protocol Insulin Detemir 13 units 07/25/17 22:00 07/27/17 22:52 Levemir Vial SQ 13 units HS [facility] Administration Lisinopril 40 mg 07/20/17 10:00 07/28/17 09:48 Prinivil PO 40 mg DAILY [facility] Administration Sitagliptin Phosphate 100 mg 07/23/17 11:30 07/28/17 06:29 Januvia - PO 100 mg DAILY@0700 [facility] Administration ASSESSMENT/PLAN: 1) R Lower extremity hematoma --MRI soft tissues due to inability to use CT as a result of b/L TKR artifacts showed soft tissue fluid collection and no injury to ligaments of knee --Markedly improved --Continue to hold ASA --Pt failed PT with inability to walk more than 40ft before pain --Continue PT; goal for >50 ft --Plans with to either D/C to home or SNF; will discuss with case consultant next AM 2) DM --Levemir 13U SQ HS --Januvia 100mg PO qDaily --ISS for inbetween coverage --BGM 3) HTN --Norvasc 10mg PO qdaily --Lisinopril 40mg PO qDaily FEN: Fluids: Tolerating PO; not indicated Electrolyte abnormalities: None currently Nutrition: Diabetic Diet PPX: DVT - Heparin 5000U SQ TID Dispo: D/C planning pending ability to walk >50 ft with PT. SNF possibility. Case discussed with Dr. Ragini Holliday, DO - Internal Medicine PGY-1 Visit type - Emergency Visit Emergency Visit: No - New Patient This patient is new to me today: No - Critical Care Critical Care patient: No
[2017-07-28] MEDS: ATORVASTATIN CA 40 MG TABLET (FP) PO SCH (21:21)
[2017-07-28] MEDS: INSULIN DETEMIR 100 UNITS/ML MDV SQ SCH (21:22)
[2017-07-29] MEDS: ACETAMINOPHEN 325 MG TABLET (FP) PO PRN (01:44)
[2017-07-29] MEDS: sitaGLIPtin PHOSPHATE 100 MG TABLET (FP) PO SCH (06:38)
[2017-07-29] MEDS: HEPARIN NA (PORCINE) 5,000 UNITS/ML 1ML VIAL SQ SCH ×3 (06:38→21:15)
[2017-07-29] MEDS: INSULIN SLIDING SCALE (NOVOLOG) 1 VIAL SQ SCH ×4 (06:38→21:16)
[2017-07-29] MEDS ORDERED: INSULIN (NOVOLOG) ASPART 100 UNITS/ML 10ML VIAL ONE ×3 (07:07→20:43)
[2017-07-29] MEDS: LISINOPRIL 20 MG TABLET (FP) PO SCH (09:57)
[2017-07-29] MEDS: amLODIPine BESYLATE 10 MG TABLET (FP) PO SCH (09:57)
--- NOTE | 2017-07-29 16:51 | PN ---
Teaching Attending Note Name of Resident: Tam Holliday ATTENDING PHYSICIAN STATEMENT I saw and evaluated the patient. I reviewed the resident's note and discussed the case with the resident. I agree with the resident's findings and plan as documented. SUBJECTIVE:asymptomatic. denies Cp, SOB, fever, chills, N/V/C/D OBJECTIVE: Last Vital Signs Temp Pulse Resp BP Pulse Ox 98.5 F 87 18 134/65 95 07/29/17 14:17 07/29/17 14:17 07/29/17 14:17 07/29/17 14:17 07/29/17 09:00 General NAD Extremities no tenderness of B/L knees. decreased ROM due to pain. no swelling ASSESSMENT AND PLAN: 67 yo F with PMH HTN, DM, and L TKR who presented with R knee and calf pain and was found to have cellulitis and hematoma of the calf 1. Hematoma of R leg with cellulitis- clinically improved. completed course of abx. evaluated by ortho. no intervention. cont to hold asa at this time. (was taking for primary prophlaxis) will need to d/w PMD about re-initiating. will need ISAAC placement as only able to walk several feet. awaiting insurance auth.
--- NOTE | 2017-07-29 16:51 | PN ---
Progress Note, Physician History of Present Illness: stable no issues unable to walk required distance - Current Medication List Current Medications: Active Medications Acetaminophen (Tylenol -) 650 mg PO Q6H PRN PRN Reason: FEVER OR PAIN Last Admin: 07/29/17 01:44 Dose: 650 mg Acetaminophen (Tylenol -) 325 mg PO Q6H PRN PRN Reason: FEVER OR PAIN Amlodipine Besylate (Norvasc -) 10 mg PO DAILY [facility] Last Admin: 07/29/17 09:57 Dose: 10 mg Atorvastatin Calcium (Lipitor -) 40 mg PO HS [facility] Last Admin: 07/28/17 21:21 Dose: 40 mg Heparin Sodium (Porcine) (Heparin -) 5,000 unit SQ TID [facility] Last Admin: 07/29/17 14:53 Dose: 5,000 unit Insulin Aspart (Novolog Vial Sliding Scale -) 1 vial SQ ACHS [facility] PRN Reason: Protocol Last Admin: 07/29/17 16:46 Dose: 4 units Insulin Detemir (Levemir Vial) 13 units SQ HS [facility] Last Admin: 07/28/17 21:22 Dose: 13 units Lisinopril (Prinivil) 40 mg PO DAILY [facility] Last Admin: 07/29/17 09:57 Dose: 40 mg Sitagliptin Phosphate (Januvia -) 100 mg PO DAILY@0700 [facility] Last Admin: 07/29/17 06:38 Dose: 100 mg - Objective Vital Signs: Vital Signs Temperature 98.5 F 07/29/17 14:17 Pulse Rate 87 07/29/17 14:17 Respiratory Rate 18 07/29/17 14:17 Blood Pressure 134/65 07/29/17 14:17 O2 Sat by Pulse Oximetry (%) 95 07/29/17 09:00 Constitutional: Yes: No Distress, Calm Cardiovascular: Yes: Regular Rate and Rhythm Respiratory: Yes: Regular, CTA Bilaterally Gastrointestinal: Yes: Normal Bowel Sounds, Soft Musculoskeletal: Yes: Other Extremities: Yes: Other Neurological: Yes: Alert, Oriented Psychiatric: Yes: Alert, Oriented Labs: CBC, BMP 07/27/17 05:40 07/25/17 19:35 INR, PTT INR 1.00 (0.82-1.09) 07/19/17 09:40 Assessment/Plan Problem List - Problems (1) Leg edema, right Code(s): R60.0 - LOCALIZED EDEMA cellulitits of the rt ;eg plan stable off of abx await PT rest as per primary team plan rehab
--- NOTE | 2017-07-29 21:04 | PN ---
Physical Exam: SUBJECTIVE: No new complaints. Pt willing to go to SNF for rehab. No other acute events noted. OBJECTIVE: Vital Signs Period Temp Pulse Resp BP Sys/Jasmine Pulse Ox Last 24 Hr 97.2 F-99.0 F 81-87 18-87 113-141/65-78 95-95 GENERAL: The patient is awake, alert, and fully oriented, in no acute distress. HEENT: EOMI, PERRL, Moist mucosa LUNGS: CTA b/l no wheezes, rhonchi, or rales HEART: Slightly tachycardic, regular rhythm, no murmurs appreciated ABDOMEN: Soft, nontender, nondistended, normoactive bowel sounds EXTREMITIES: R posterior upper calf area of tenderness with increased toughness. No erythema noted. Significantly decreased edema compared to previous exams. Dorsalis pedis pulses 2+ bilaterally NEUROLOGICAL: Alert and oriented x3. Lower extremity sensation intact b/l throughout. Strength 5/5 bilaterally SKIN: Warm, dry, no rashes or lesions noted Laboratory Results - last 24 hr 07/28/17 07/29/17 07/29/17 21:20 06:37 11:26 POC Glucometer 253 194 192 07/29/17 16:11 POC Glucometer 204 Active Medications Generic Name Dose Route Start Last Admin Trade Name Freq PRN Reason Stop Dose Admin Acetaminophen 650 mg 07/21/17 00:18 07/29/17 01:44 Tylenol - PO 650 mg Q6H PRN Administration FEVER OR PAIN Acetaminophen 325 mg 07/25/17 17:43 Tylenol - PO Q6H PRN FEVER OR PAIN Amlodipine Besylate 10 mg 07/20/17 10:00 07/29/17 09:57 Norvasc - PO 10 mg DAILY [facility]AY[facility] Administration Atorvastatin Calcium 40 mg 07/20/17 22:00 07/28/17 21:21 Lipitor - PO 40 mg HS ZAYRA Administration Heparin Sodium (Porcine) 5,000 unit 07/26/17 16:15 07/29/17 14:53 Heparin - SQ 5,000 unit TID ZAYRA Administration Insulin Aspart 1 vial 07/19/17 22:00 07/29/17 16:46 Novolog Vial Sliding Scale - SQ 4 units ACHS ZAYRA Administration Protocol Insulin Detemir 13 units 07/25/17 22:00 07/28/17 21:22 Levemir Vial SQ 13 units HS [facility]AYRA Administration Lisinopril 40 mg 07/20/17 10:00 07/29/17 09:57 Prinivil PO 40 mg DAILY [facility] Administration Sitagliptin Phosphate 100 mg 07/23/17 11:30 07/29/17 06:38 Januvia - PO 100 mg DAILY@0700 ZAYRA Administration ASSESSMENT/PLAN: 1) R Lower extremity hematoma --MRI soft tissues due to inability to use CT as a result of b/L TKR artifacts showed soft tissue fluid collection and no injury to ligaments of knee --Markedly improved --Continue to hold ASA --Pt failed PT with inability to walk more than 40ft before pain --Continue PT; goal for >50 ft --Plans to either D/C SNF; awaiting prior authorization 2) DM --Levemir 13U SQ HS --Januvia 100mg PO qDaily --ISS for inbetween coverage --BGM 3) HTN --Norvasc 10mg PO qdaily --Lisinopril 40mg PO qDaily FEN: Fluids: Tolerating PO; not indicated Electrolyte abnormalities: None currently Nutrition: Diabetic Diet PPX: DVT - Heparin 5000U SQ TID Dispo: D/C planning pending ability to walk >50 ft with PT. SNF possibility. Case discussed with Dr. Ellie Holliday, DO - Internal Medicine PGY-1 Visit type - Emergency Visit Emergency Visit: No - New Patient This patient is new to me today: No - Critical Care Critical Care patient: No
[2017-07-29] MEDS: ATORVASTATIN CA 40 MG TABLET (FP) PO SCH (21:15)
[2017-07-29] MEDS: INSULIN DETEMIR 100 UNITS/ML MDV SQ SCH (21:16)
[2017-07-30] MEDS: HEPARIN NA (PORCINE) 5,000 UNITS/ML 1ML VIAL SQ SCH ×2 (06:07→14:22)
[2017-07-30] MEDS: INSULIN SLIDING SCALE (NOVOLOG) 1 VIAL SQ SCH ×2 (06:08→12:03)
[2017-07-30] MEDS: sitaGLIPtin PHOSPHATE 100 MG TABLET (FP) PO SCH (06:08)
--- NOTE | 2017-07-30 06:59 | PN ---
Physical Exam: SUBJECTIVE: Patient seen and examined OBJECTIVE: Vital Signs Period Temp Pulse Resp BP Sys/Jasmine Pulse Ox Last 24 Hr 97.2 F-98.5 F 84-97 18-87 115-134/61-78 95-95 GENERAL: The patient is awake, alert, and fully oriented, in no acute distress. HEAD: Normal with no signs of trauma. EYES: PERRL, extraocular movements intact, sclera anicteric, conjunctiva clear. No ptosis. ENT: Ears normal, nares patent, oropharynx clear without exudates, moist mucous membranes. NECK: Trachea midline, full range of motion, supple. LUNGS: Breath sounds equal, clear to auscultation bilaterally, no wheezes, no crackles, no accessory muscle use. HEART: Regular rate and rhythm, S1, S2 without murmur, rub or gallop. ABDOMEN: Soft, nontender, nondistended, normoactive bowel sounds, no guarding, no rebound, no hepatosplenomegaly, no masses. EXTREMITIES: 2+ pulses, warm, well-perfused, no edema. NEUROLOGICAL: Cranial nerves II through XII grossly intact. Normal speech, gait not observed. PSYCH: Normal mood, normal affect. SKIN: Warm, dry, normal turgor, no rashes or lesions noted Laboratory Results - last 24 hr 07/29/17 07/29/17 07/29/17 06:37 11:26 16:11 POC Glucometer 194 192 204 07/29/17 07/30/17 21:13 06:07 POC Glucometer 223 137 Active Medications Generic Name Dose Route Start Last Admin Trade Name Freq PRN Reason Stop Dose Admin Acetaminophen 650 mg 07/21/17 00:18 07/29/17 01:44 Tylenol - PO 650 mg Q6H PRN Administration FEVER OR PAIN Acetaminophen 325 mg 07/25/17 17:43 Tylenol - PO Q6H PRN FEVER OR PAIN Amlodipine Besylate 10 mg 07/20/17 10:00 07/29/17 09:57 Norvasc - PO 10 mg DAILY [facility] Administration Atorvastatin Calcium 40 mg 07/20/17 22:00 07/29/17 21:15 Lipitor - PO 40 mg HS [facility] Administration Heparin Sodium (Porcine) 5,000 unit 07/26/17 16:15 07/30/17 06:07 Heparin - SQ 5,000 unit TID [facility]AY[facility] Administration Insulin Aspart 1 vial 07/19/17 22:00 07/30/17 06:08 Novolog Vial Sliding Scale - SQ Not Given ACHS [facility] Protocol Insulin Detemir 13 units 07/25/17 22:00 07/29/17 21:16 Levemir Vial SQ 13 units HS [facility] Administration Lisinopril 40 mg 07/20/17 10:00 07/29/17 09:57 Prinivil PO 40 mg DAILY [facility] Administration Sitagliptin Phosphate 100 mg 07/23/17 11:30 07/30/17 06:08 Januvia - PO 100 mg DAILY@0700 [facility] Administration ASSESSMENT/PLAN:
[2017-07-30] MEDS: LISINOPRIL 20 MG TABLET (FP) PO SCH (10:38)
[2017-07-30] MEDS: amLODIPine BESYLATE 10 MG TABLET (FP) PO SCH (10:38)
--- NOTE | 2017-07-30 13:13 | DS ---
Physical Exam: SUBJECTIVE: Pt feels well and does not have any complaints at this time. Ready to go to SNF for further rehab with walking. OBJECTIVE: Vital Signs Period Temp Pulse Resp BP Sys/Jasmine Pulse Ox Last 24 Hr 98.2 F-98.5 F 86-97 18-87 115-134/61-69 95 PHYSICAL EXAM GENERAL: The patient is awake, alert, and fully oriented, in no acute distress. HEENT: EOMI, PERRL, Moist mucosa LUNGS: CTA b/l no wheezes, rhonchi, or rales HEART: RRR, no murmurs appreciated ABDOMEN: Soft, nontender, nondistended, normoactive bowel sounds EXTREMITIES: R posterior upper calf area without tenderness. No erythema noted. No edema. Dorsalis pedis pulses 2+ bilaterally NEUROLOGICAL: Alert and oriented x3. Lower extremity sensation intact b/l throughout. Strength 5/5 bilaterally SKIN: Warm, dry, no rashes or lesions noted LABS Laboratory Results - last 24 hr 07/29/17 07/29/17 07/30/17 16:11 21:13 06:07 POC Glucometer 204 223 137 07/30/17 11:20 POC Glucometer 223 HOSPITAL COURSE: Date of Admission:07/19/17 Date of Discharge: 07/30/17 On 07/19/17 patient was admitted for right calf tenderness and pain secondary to hematoma s/p mechanical fall. Patient fell by loss of footing and denied any loss of consciousness, urinary incontinence, or visual changes. Since then patient was discontinued off his prophylactic ASA 325mg. He received 7 days of Meropenem for suspected infection and received a CT with IV contrast to r/o any tendon or soft tissue abnormalities. CT showed: hyperdense area suspect for hematoma without any other acute changes; MRI was suggested on a non-emergent basis for follow-up with popliteal cyst pathology. DVT was also ruled out by doppler studies. Edema and erythema resolved on 07/27/17. Physical therapy has worked with the patient since and pt has not succeeded to walk more than 40 feet without discontinuing therapy secondary to pain. Patient will be sent to [facility] facility in order to rehabilitate further. Minutes to complete discharge: 30 Discharge Summary Reason For Visit: R LEG EDEMA Current Active Problems Traumatic hematoma of knee (Acute) Diabetes mellitus (Chronic) Hyperlipidemia (Chronic) Hypertension (Chronic) Condition: Improved - Instructions Diet, Activity, Other Instructions: You were hospitalized for a blood collection under you skin after your fall. You will be sent to a rehabilitation facility so you can get stronger with walking. Medication CHANGES: --You had your aspirin stopped due to the bleed. CONTINUE to NOT take your ASPIRIN due to the increased risk of bleed Please discuss the risk and benefits of your aspirin with your general medical doctor 2) Your Lantus dose has been changed to 13 Units once per day AT NIGHT. Please follow-up with your general medical doctor for monitoring. Instructions: Please follow up with your general medical doctor If your symptoms worsen or return please return to the hospital or your nearest ER for evaluation Please be careful and try not to fall Referrals: Yuko Pedersen MD [Primary Care Provider] - [facility] - Home Medications Comprehensive Discharge Medication List: Ambulatory Orders Metformin HCl [Glucophage] 1,000 mg PO BID 10/07/14 Amlodipine Besylate 10 mg PO DAILY 07/19/17 Atorvastatin Ca [Lipitor] 40 mg PO HS 07/19/17 Lisinopril [Prinivil -] 40 mg PO DAILY 07/19/17 Sitagliptin Phosphate [Januvia] 100 mg PO DAILY 07/19/17 Insulin Glargine,Hum.rec.anlog [Lantus Solostar PEN (NF)] 13 units SQ HS #1 pen 07/30/17 This patient is new to me today: No Emergency Visit: No Critical Care patient: No - Discharge Referral [facility]erred to [facility] Med P.C[facility] No
[2017-07-30 15:05] VITALS: BP 129/72; PULSE 95; TEMP 98.6
[2017-07-30] MEDS ORDERED: metFORMIN HCL 500 MG TABLET (FP) PO SCH (16:30)
[2017-07-30] MEDS ORDERED: INSULIN (NOVOLOG MIX 70/30) 100 UNITS/ML MDV SQ SCH (16:30)
[2017-07-31] MEDS ORDERED: PATIENT'S OWN MEDICATION (NON-FORMULARY) (Insulin Glargine,Hum.Rec.Anlog 60 UNITS) SQ SCH (10:00)
== END 2017-07-30 15:32 | DRG 872 ==
LOC: JER 08:49 → JERBED 13:02 → J5S 07-20 21:57
PROVIDERS: ADMIT Internal Medicine; ATTEND Internal Medicine
PROC: 0S9C3ZX Drainage of Right Knee Joint, Percutaneous Approach, Diagnostic (ICD-10-PCS; principal; 2017-07-21)
DX: A41.9 Sepsis, unspecified organism (principal); L03.115 Cellulitis of right lower limb; E78.5 Hyperlipidemia, unspecified; I25.10 Atherosclerotic heart disease of native coronary artery without angina pectoris; I10 Essential (primary) hypertension; R60.0 Localized edema; M17.11 Unilateral primary osteoarthritis, right knee; S80.11XA Contusion of right lower leg, initial encounter; M25.461 Effusion, right knee; D72.828 Other elevated white blood cell count; R00.0 Tachycardia, unspecified; R50.9 Fever, unspecified; E11.65 Type 2 diabetes mellitus with hyperglycemia; M71.20 Synovial cyst of popliteal space [Baker], unspecified knee; W18.39XA Other fall on same level, initial encounter; Y92.89 Other specified places as the place of occurrence of the external cause; Z96.653 Presence of artificial knee joint, bilateral; Z79.82 Long term (current) use of aspirin; Z79.4 Long term (current) use of insulin; Z88.1 Allergy status to other antibiotic agents
CPT/HCPCS: 36415; 73562-TC-RT; 73700-TC-RT; 80048; 80053; 80061; 81003; 82150; 82945; 83036; 83605; 83615; 83721; 83735; 84100; 84132; 84157; 84443; 85025; 85027; 85610; 85651; 85730; 86140; 87040; 87070; 87075; 87081; 87086; 87205; 89051; 89060; 90670; 90688; 93005; 93010; 93970-TC; 93971-TC; 97116-GP; 97161-GP; 99285-25; G0008; G0009; G0480; J1644

== ENCOUNTER 2023-11-02 18:34 | Inpatient (IN) | payer OTHER ==
[2023-11-02 20:32] LABS: HEMATOCRIT 38.1 % (35.4-49); HEMOGLOBIN 12.2 GM/dL (11.7-16.9); MCH 30.9 pg (25.7-33.7); MEAN CELL VOLUME 96.7 fl (80-96); MEAN PLT VOLUME 8.5 fl (7.5-11.1); PLATELET COUNT 507 10^3/uL (134-434); RBC 3.94 M/mm3 (4.00-5.60); RDW 13.5 % (11.9-15.9); WHITE BLOOD COUNT 26.6 K/mm3 (4.0-10.0)
[2023-11-02 20:49] LABS: CHLORIDE 97 mmol/L (98-107); POTASSIUM 5.4 mmol/L (3.5-5.1); SODIUM 132 mmol/L (136-145)
[2023-11-02] MEDS ORDERED: PIPERACILLIN/TAZOB 3.375 GM 3.375 GM/50 ML BAG IVPB ONE (20:50)
[2023-11-02] MEDS ORDERED: VANCOMYCIN 1 GRAM (PRE-DOCKED) 1,000 MG/250 ML BAG IVPB ONE (20:50)
[2023-11-02 20:51] LABS: ANION GAP 10 mmol/L (4-13); CO2 25 mmol/L (21-32)
[2023-11-02 20:52] LABS: ALBUMIN 3.5 g/dl (3.4-5.0); BLOOD UREA NITROGEN 41.9 mg/dL (7-18)
[2023-11-02 20:54] LABS: SGPT/ALT 15 U/L (13-61)
[2023-11-02 20:55] LABS: CREATININE 1.7 mg/dL (0.55-1.3); SGOT/AST 12 U/L (15-37)
[2023-11-02 20:56] LABS: BILIRUBIN,TOTAL 0.9 mg/dL (0.2-1); TOT PROT 7.8 g/dl (6.4-8.2)
[2023-11-02 20:57] LABS: ALK PHOS 113 U/L (45-117)
[2023-11-02] MEDS: PIPERACILLIN/TAZOB 3.375 GM 3.375 GM in DEXTROSE 5%-WATER - 50 ML IVPB ONE (21:03)
[2023-11-02 21:04] LABS: INR 1.15 (0.83-1.09); PROTHROMBIN TIME (PATIENT) 13.3 SEC (9.7-13.0)
[2023-11-02 21:07] LABS: ACTIVATED PTT 32.8 SECONDS (25.2-36.5)
[2023-11-02 21:09] LABS: PH,URINE 5.5 (5.0-8.0); URINE APPEARANCE CLEAR; URINE BILIRUBIN NEGATIVE (NEGATIVE); URINE COLOR YELLOW; URINE GLUCOSE (UA) 3+ (NEGATIVE); URINE KETONE TRACE (NEGATIVE); URINE LEUK ESTERASE NEGATIVE (NEGATIVE); URINE NITRITE NEGATIVE (NEGATIVE); URINE PROTEIN NEGATIVE (NEGATIVE); URINE UROBILINOGEN 0.2 mg/dL (0.2-1.0)
[2023-11-02 21:18] LABS: GLUCOSE,RANDOM 614 mg/dL (74-106)
[2023-11-02 21:23] LABS: LACTIC ACID 3.9 mmol/L (0.4-2.0)
[2023-11-02] MEDS: VANCOMYCIN 1 GM PREMIX - 1 GM/200 ML BAG IVPB ONE (21:36)
[2023-11-02] MEDS: LACTATED RINGERS SOLUTION 1000 ML INFUS.BAG IV ONE (21:45)
[2023-11-02 21:49] LABS: ANISOCYTOSIS 1+; MACROCYTOSIS 0; PLATELET ESTIMATE NORMAL
[2023-11-02 22:49] LABS: N-TERMINAL BNP 350.1 pg/ml (5-125)
[2023-11-02] MEDS: SODIUM CHLORIDE 0.9% 500 ML INFUS.BAG IV ONE (22:52)
[2023-11-02] MEDS: INSULIN ASPART SLIDING SCALE (NOVOLOG) 1 VIAL SQ SCH (23:16)
[2023-11-03 00:03] LABS: VENOUS BASE EXCESS -3.1 mmol/L (-2-2); VENOUS O2 SATURATION 28.8 % (70-80); VENOUS PCO2 43.9 mmHg (38-52); VENOUS PH 7.333 (7.310-7.410)
[2023-11-03 00:31] LABS: CHLORIDE 104 mmol/L (98-107); POTASSIUM 5.5 mmol/L (3.5-5.1); SODIUM 135 mmol/L (136-145)
[2023-11-03 00:32] LABS: CALCIUM 8.9 mg/dL (8.5-10.1)
[2023-11-03 00:33] LABS: ANION GAP 5 mmol/L (4-13); CO2 26 mmol/L (21-32)
[2023-11-03 00:36] LABS: CREATININE 1.5 mg/dL (0.55-1.3); SGOT/AST 9 U/L (15-37); SGPT/ALT 12 U/L (13-61)
[2023-11-03 00:38] LABS: BILIRUBIN,TOTAL 1.1 mg/dL (0.2-1); TOT PROT 6.6 g/dl (6.4-8.2)
[2023-11-03 00:39] LABS: ALK PHOS 96 U/L (45-117)
[2023-11-03 00:45] LABS: GLUCOSE,RANDOM 495 mg/dL (74-106)
[2023-11-03] MEDS: SODIUM CHLORIDE 2,354 ML IV ONE (00:59)
[2023-11-03] MEDS ORDERED: MEROPENEM 250 MG in DEXTROSE 5%-WATER - 100 ML IVPB SCH (02:00)
[2023-11-03] MEDS ORDERED: HEPARIN NA (PORCINE) 5,000 UNITS/ML 1ML VIAL ONE (04:53)
[2023-11-03] MEDS: HEPARIN NA (PORCINE) 5,000 UNITS/ML 1ML VIAL SQ SCH (05:03)
[2023-11-03] MEDS ORDERED: MEROPENEM 1 GM in DEXTROSE 5%-WATER 100 ML IVPB SCH (06:00)
[2023-11-03] MEDS ORDERED: MEROPENEM 1 GM VIAL (RESTRICTED TO ID) IVPB ONE (06:08)
[2023-11-03] MEDS ORDERED: DEXTROSE 5%-WATER 100 ML IVPB ONE (06:08)
[2023-11-03] MEDS: MEROPENEM 1 GM in DEXTROSE 5%-WATER 100 ML IVPB SCH (06:12)
[2023-11-03 06:56] LABS: BASO % 0.5 % (0-2.0); EOS % 0.1 % (0-4.5); HEMATOCRIT 29.6 % (35.4-49); HEMOGLOBIN 9.7 GM/dL (11.7-16.9); LYMPH % 10.4 % (8-40); MCH 31.6 pg (25.7-33.7); MCHC 32.8 g/dl (32.0-35.9); MEAN CELL VOLUME 96.3 fl (80-96); MEAN PLT VOLUME 8.6 fl (7.5-11.1); MONO % 8.2 % (3.8-10.2); NEUT % 80.8 % (42.8-82.8); PLATELET COUNT 407 10^3/uL (134-434); RBC 3.07 M/mm3 (4.00-5.60); RDW 13.1 % (11.9-15.9); WHITE BLOOD COUNT 18.1 K/mm3 (4.0-10.0)
[2023-11-03 07:16] LABS: ALBUMIN 2.5 g/dl (3.4-5.0); BLOOD UREA NITROGEN 29.2 mg/dL (7-18); CALCIUM 8.5 mg/dL (8.5-10.1); MAGNESIUM 1.9 mg/dL (1.8-2.4)
[2023-11-03 07:20] LABS: PHOSPHOROUS 2.2 mg/dL (2.5-4.9)
[2023-11-03 07:21] LABS: BILIRUBIN,TOTAL 0.9 mg/dL (0.2-1); TOT PROT 5.7 g/dl (6.4-8.2)
[2023-11-03] MEDS: INSULIN (NOVOLOG) ASPART 100 UNITS/ML 10ML VIAL SQ SCH (07:36)
[2023-11-03] MEDS: INSULIN (LEVEMIR) 100 UNITS/ML UNITS SQ SCH (08:52)
[2023-11-03] MEDS: LISINOPRIL 20 MG TABLET PO SCH (09:24)
[2023-11-03 10:27] LABS: HEMATOCRIT 30.3 % (35.4-49); MCH 31.8 pg (25.7-33.7); MCHC 32.9 g/dl (32.0-35.9); MEAN CELL VOLUME 96.5 fl (80-96); MEAN PLT VOLUME 7.9 fl (7.5-11.1); PLATELET COUNT 405 10^3/uL (134-434); RBC 3.14 M/mm3 (4.00-5.60); RDW 13.3 % (11.9-15.9); WHITE BLOOD COUNT 17.9 K/mm3 (4.0-10.0)
[2023-11-03 10:43] LABS: ERYTHROCYTE SEDIMENTATION RATE 60 mm/hr (0-20)
[2023-11-03 11:01] LABS: HIV INTERPRETATION NEGATIVE (NEGATIVE)
[2023-11-03] MEDS: NAPH,MB-DB/K PH,MBDB POWDER PACKET PO ONE (11:20)
[2023-11-03] MEDS: PANTOPRAZOLE 20 MG TABLET PO SCH (16:40)
[2023-11-03] MEDS ORDERED: VANCOMYCIN 1 GM PREMIX - 1 GM/200 ML BAG IVPB ONE (19:15)
[2023-11-03] MEDS: VANCOMYCIN/WATER FOR INJ (PEG) 1 GM/200 ML BAG IVPB ONE (20:02)
[2023-11-03] MEDS: ASPIRIN COATED 81 MG TABLET.EC PO SCH (20:02)
[2023-11-03] MEDS: ATORVASTATIN CA 20 MG TABLET (FP) PO SCH (21:36)
[2023-11-03] MEDS: ENOXAPARIN NA (PORCINE) 80 MG/0.8 ML DISP.SYRIN SQ SCH (21:37)
[2023-11-03] MEDS: ACETAMINOPHEN 1000 MG/100 ML BAG IVPB ONE (22:27)
[2023-11-04 10:52] LABS: POTASSIUM 4.6 mmol/L (3.5-5.1)
[2023-11-04 10:53] LABS: HEMATOCRIT 31.7 % (35.4-49); HEMOGLOBIN 10.7 GM/dL (11.7-16.9); MCHC 33.6 g/dl (32.0-35.9); MEAN CELL VOLUME 95.2 fl (80-96); MEAN PLT VOLUME 9.1 fl (7.5-11.1); PLATELET COUNT 424 10^3/uL (134-434); RBC 3.33 M/mm3 (4.00-5.60); RDW 13.3 % (11.9-15.9); WHITE BLOOD COUNT 20.5 K/mm3 (4.0-10.0)
[2023-11-04 10:56] LABS: BLOOD UREA NITROGEN 20.6 mg/dL (7-18)
[2023-11-04 10:59] LABS: PHOSPHOROUS 2.4 mg/dL (2.5-4.9)
[2023-11-04 11:00] LABS: TOT PROT 6.4 g/dl (6.4-8.2)
[2023-11-04 11:01] LABS: ALBUMIN 2.7 g/dl (3.4-5.0); CREATININE 1.1 mg/dL (0.55-1.3)
[2023-11-04 12:57] LABS: ANISOCYTOSIS 0; HELMET CELLS 0; HOWELL-JOLLY BODIES 0; MACROCYTOSIS 0; OVALOCYTE 0; ROULEAU 0; SICKELED CELLS 0; TARGET CELLS 0; TEAR DROP CELLS 0; TOXIC GRANULATION 0
[2023-11-04] MEDS: MEROPENEM 1 GM in DEXTROSE 5%-WATER 100 ML IVPB SCH (15:38)
[2023-11-04] MEDS: NAPH,MB-DB/K PH,MBDB POWDER PACKET PO SCH (22:19)
[2023-11-04] MEDS: INSULIN (LEVEMIR) 100 UNITS/ML UNITS SQ SCH (22:43)
[2023-11-05 09:22] LABS: INR 1.21 (0.83-1.09)
[2023-11-05 09:27] LABS: BASO % 0.5 % (0-2.0); EOS % 0.6 % (0-4.5); HEMATOCRIT 31.4 % (35.4-49); HEMOGLOBIN 10.1 GM/dL (11.7-16.9); LYMPH % 9.9 % (8-40); MCH 30.9 pg (25.7-33.7); MCHC 32.1 g/dl (32.0-35.9); MEAN CELL VOLUME 96.1 fl (80-96); MEAN PLT VOLUME 8.9 fl (7.5-11.1); MONO % 9.9 % (3.8-10.2); NEUT % 79.1 % (42.8-82.8); PLATELET COUNT 410 10^3/uL (134-434); RBC 3.27 M/mm3 (4.00-5.60); RDW 12.9 % (11.9-15.9); WHITE BLOOD COUNT 17.5 K/mm3 (4.0-10.0)
[2023-11-05 09:39] LABS: POTASSIUM 4.8 mmol/L (3.5-5.1)
[2023-11-05 09:55] LABS: ALBUMIN 2.5 g/dl (3.4-5.0); CALCIUM 8.3 mg/dL (8.5-10.1)
[2023-11-05 09:56] LABS: BLOOD UREA NITROGEN 15.6 mg/dL (7-18)
[2023-11-05 10:00] LABS: BILIRUBIN,TOTAL 0.8 mg/dL (0.2-1); TOT PROT 5.8 g/dl (6.4-8.2)
[2023-11-05] MEDS ORDERED: ENOXAPARIN NA (PORCINE) 40 MG/0.4 ML DISP.SYRIN SQ SCH (10:00)
[2023-11-05] MEDS ORDERED: PROMETHAZINE HCL 25 MG/1 ML VIAL IVPB PRN ×2 (14:22→16:09)
[2023-11-05] MEDS ORDERED: ONDANSETRON 4 MG/2 ML VIAL IVPUSH PRN ×2 (14:22→16:09)
[2023-11-05] MEDS ORDERED: oxyCODONE HCL 5 MG TABLET PO PRN ×2 (14:22)
[2023-11-05] MEDS ORDERED: LACTATED RINGERS SOLUTION 1,000 ML IV SCH (14:30)
[2023-11-05] MEDS ORDERED: LIDOCAINE HCL/PF 2% SDV 5ML VIAL ONE (14:48)
[2023-11-05] MEDS ORDERED: PROPOFOL 20 ML ONE ×2 (14:48→14:57)
[2023-11-05] MEDS ORDERED: MIDAZOLAM HCL 2 MG/2 ML SINGLE DOSE VIAL ONE (14:48)
[2023-11-05] MEDS ORDERED: ONDANSETRON 4 MG/2 ML VIAL ONE (14:48)
[2023-11-05] MEDS: LIDOCAINE HCL 1% PRESERVATIVE FREE - 30ML VIAL IJ ONE (14:58)
[2023-11-05] MEDS: BUPIVACAINE HCL/PF 0.5% (5MG/ML) 10 ML VIAL IJ ONE ×2 (14:59→15:15)
[2023-11-05] MEDS: GENTAMICIN SO4 80 MG/2 ML VIAL IVPB ONE ×2 (15:02→15:15)
[2023-11-05] MEDS: VANCOMYCIN 1,000 MG VIAL (RESTRICTED TO ID ONLY) IVPB ONE ×2 (15:29→16:41)
[2023-11-05] MEDS ORDERED: VANCOMYCIN 1,000 MG VIAL (RESTRICTED TO ID ONLY) ONE (16:37)
[2023-11-05] MEDS: LACTATED RINGERS SOLUTION 1,000 ML IV SCH (16:44)
[2023-11-05] MEDS: INSULIN ASPART SLIDING SCALE (NOVOLOG) 1 VIAL SQ SCH (16:44)
[2023-11-05] MEDS: VANCOMYCIN 1 GM PREMIX - 1 GM/200 ML BAG IVPB ONE (16:44)
[2023-11-05 17:00] LABS: BASO % 0.1 % (0-2.0); EOS % 0.4 % (0-4.5); HEMATOCRIT 31.6 % (35.4-49); HEMOGLOBIN 9.9 GM/dL (11.7-16.9); LYMPH % 7.1 % (8-40); MCH 30.8 pg (25.7-33.7); MCHC 31.2 g/dl (32.0-35.9); MEAN CELL VOLUME 98.6 fl (80-96); MEAN PLT VOLUME 7.8 fl (7.5-11.1); MONO % 11.3 % (3.8-10.2); NEUT % 81.1 % (42.8-82.8); PLATELET COUNT 389 10^3/uL (134-434); RDW 13.2 % (11.9-15.9); WHITE BLOOD COUNT 16.4 K/mm3 (4.0-10.0)
[2023-11-05] MEDS: VANCOMYCIN/WATER FOR INJ (PEG) 1 GM/200 ML BAG IVPB ONE (17:23)
[2023-11-05] MEDS: MEROPENEM 1 GM in DEXTROSE 5%-WATER 100 ML IVPB SCH (17:49)
[2023-11-05] MEDS: oxyCODONE HCL 5 MG TABLET PO PRN (21:20)
[2023-11-05] MEDS: ATORVASTATIN CA 20 MG TABLET (FP) PO SCH (21:21)
[2023-11-05] MEDS: INSULIN (LEVEMIR) 100 UNITS/ML UNITS SQ SCH (21:21)
[2023-11-06] MEDS: oxyCODONE HCL 5 MG TABLET PO PRN (01:22)
[2023-11-06] MEDS: INSULIN (NOVOLOG) ASPART 100 UNITS/ML 10ML VIAL SQ SCH (06:33)
[2023-11-06] MEDS: PANTOPRAZOLE 20 MG TABLET PO SCH (10:12)
[2023-11-06] MEDS: LISINOPRIL 20 MG TABLET PO SCH (10:12)
[2023-11-06] MEDS: ASPIRIN COATED 81 MG TABLET.EC PO SCH (10:12)
[2023-11-06 11:09] LABS: POTASSIUM 4.6 mmol/L (3.5-5.1)
[2023-11-06 11:11] LABS: ALBUMIN 2.2 g/dl (3.4-5.0); BLOOD UREA NITROGEN 20.9 mg/dL (7-18)
[2023-11-06 11:14] LABS: CREATININE 1.1 mg/dL (0.55-1.3)
[2023-11-06 11:16] LABS: BILIRUBIN,TOTAL 0.6 mg/dL (0.2-1); TOT PROT 5.3 g/dl (6.4-8.2)
[2023-11-06] MEDS: TAMSULOSIN HCL 0.4 MG CAP PO SCH (13:50)
[2023-11-06 16:04] LABS: BASO % 0.7 % (0-2.0); EOS % 1.2 % (0-4.5); HEMATOCRIT 29.3 % (35.4-49); HEMOGLOBIN 9.6 GM/dL (11.7-16.9); LYMPH % 7.4 % (8-40); MCH 31.3 pg (25.7-33.7); MCHC 32.8 g/dl (32.0-35.9); MEAN CELL VOLUME 95.3 fl (80-96); MEAN PLT VOLUME 8.9 fl (7.5-11.1); MONO % 9.4 % (3.8-10.2); NEUT % 81.3 % (42.8-82.8); PLATELET COUNT 416 10^3/uL (134-434); RBC 3.07 M/mm3 (4.00-5.60); RDW 13.1 % (11.9-15.9); WHITE BLOOD COUNT 18.3 K/mm3 (4.0-10.0)
[2023-11-06] MEDS ORDERED: PATIENT'S OWN MEDICATION (NON-FORMULARY) (Icosapent Ethyl [Vascepa] 1 GM Capsule) PO SCH (22:00)
[2023-11-06] MEDS: ATORVASTATIN CA 40 MG TABLET (FP) PO SCH (22:08)
[2023-11-06] MEDS: SENNOSIDES 8.6MG TABLET (FP) PO SCH (22:08)
[2023-11-06] MEDS: INSULIN (LEVEMIR) 100 UNITS/ML UNITS SQ SCH (22:11)
[2023-11-07] MEDS ORDERED: INSULIN ASPART SLIDING SCALE (NOVOLOG) 1 VIAL SQ ONE ×2 (06:51→11:48)
[2023-11-07 09:19] LABS: BASO % 0.7 % (0-2.0); EOS % 0.9 % (0-4.5); HEMATOCRIT 28.1 % (35.4-49); HEMOGLOBIN 9.5 GM/dL (11.7-16.9); LYMPH % 8.1 % (8-40); MCH 31.8 pg (25.7-33.7); MCHC 33.8 g/dl (32.0-35.9); MEAN CELL VOLUME 94.1 fl (80-96); MEAN PLT VOLUME 8.3 fl (7.5-11.1); MONO % 9.6 % (3.8-10.2); NEUT % 80.7 % (42.8-82.8); PLATELET COUNT 407 10^3/uL (134-434); RBC 2.99 M/mm3 (4.00-5.60); RDW 13.1 % (11.9-15.9); WHITE BLOOD COUNT 16.2 K/mm3 (4.0-10.0)
[2023-11-07 09:40] LABS: POTASSIUM 4.6 mmol/L (3.5-5.1)
[2023-11-07 09:54] LABS: BLOOD UREA NITROGEN 17.2 mg/dL (7-18); CALCIUM 8.4 mg/dL (8.5-10.1)
[2023-11-07 09:55] LABS: ALBUMIN 2.2 g/dl (3.4-5.0)
[2023-11-07 09:59] LABS: BILIRUBIN,TOTAL 0.4 mg/dL (0.2-1); TOT PROT 5.5 g/dl (6.4-8.2)
[2023-11-07] MEDS: POLYETHYLENE GLYCOL (HEALTHYLAX) 3350 17 GM PACKET PO SCH (10:34)
[2023-11-07] MEDS: oxyCODONE HCL 5 MG TABLET PO ONE (12:04)
[2023-11-07] MEDS: metoPROLOL SUCCINATE 25 MG TAB.SR.24H (FP) PO SCH (12:22)
[2023-11-07] MEDS: ACETAMINOPHEN 325 MG TABLET (FP) PO PRN (15:33)
[2023-11-07] MEDS ORDERED: oxyCODONE HCL 5 MG TABLET PO PRN (16:00)
[2023-11-07] MEDS: MIRTAZAPINE 15 MG TABLET (FP) PO SCH (21:35)
[2023-11-07] MEDS: INSULIN (LEVEMIR) 100 UNITS/ML UNITS SQ SCH (21:42)
[2023-11-08 09:30] LABS: BASO % 0.4 % (0-2.0); EOS % 1.2 % (0-4.5); HEMATOCRIT 32.1 % (35.4-49); HEMOGLOBIN 10.9 GM/dL (11.7-16.9); MCH 31.8 pg (25.7-33.7); MEAN CELL VOLUME 93.4 fl (80-96); MEAN PLT VOLUME 8.7 fl (7.5-11.1); MONO % 7.8 % (3.8-10.2); NEUT % 81.6 % (42.8-82.8); PLATELET COUNT 461 10^3/uL (134-434); RBC 3.43 M/mm3 (4.00-5.60); RDW 12.8 % (11.9-15.9); WHITE BLOOD COUNT 18.4 K/mm3 (4.0-10.0)
[2023-11-08] MEDS: INSULIN (LEVEMIR) 100 UNITS/ML UNITS SQ SCH (22:09)
[2023-11-08] MEDS: VANCOMYCIN/WATER FOR INJ (PEG) 1,000 MG/200 ML BAG IVPB ONE (22:20)
[2023-11-08] MEDS: MINERAL OIL ENEMA 133 ML ENEMA RC ONE (22:20)
[2023-11-09 11:15] LABS: BASO % 0.4 % (0-2.0); HEMOGLOBIN 10.1 GM/dL (11.7-16.9); LYMPH % 7.4 % (8-40); MCH 31.7 pg (25.7-33.7); MCHC 33.7 g/dl (32.0-35.9); MEAN CELL VOLUME 93.8 fl (80-96); MEAN PLT VOLUME 7.8 fl (7.5-11.1); MONO % 9.7 % (3.8-10.2); NEUT % 81.5 % (42.8-82.8); PLATELET COUNT 499 10^3/uL (134-434); WHITE BLOOD COUNT 15.9 K/mm3 (4.0-10.0)
[2023-11-09 11:55] LABS: POTASSIUM 5.3 mmol/L (3.5-5.1)
[2023-11-09 12:02] LABS: CALCIUM 8.5 mg/dL (8.5-10.1)
[2023-11-09 12:03] LABS: ALBUMIN 2.3 g/dl (3.4-5.0); BLOOD UREA NITROGEN 15.8 mg/dL (7-18)
[2023-11-09 12:06] LABS: TOT PROT 5.8 g/dl (6.4-8.2)
[2023-11-09 12:09] LABS: BILIRUBIN,TOTAL 0.6 mg/dL (0.2-1)
[2023-11-09] MEDS: ENOXAPARIN NA (PORCINE) 80 MG/0.8 ML DISP.SYRIN SQ ONE (12:55)
[2023-11-09] MEDS: BISACODYL 10 MG SUPP.RECT PR ONE (15:49)
[2023-11-09] MEDS ORDERED: MINERAL OIL ENEMA 133 ML ENEMA RC ONE (16:23)
[2023-11-09] MEDS: ENOXAPARIN NA (PORCINE) 80 MG/0.8 ML DISP.SYRIN SQ SCH (21:28)
[2023-11-09] MEDS: POLYETHYLENE GLYCOL (HEALTHYLAX) 3350 17 GM PACKET PO SCH (21:28)
[2023-11-10 09:40] LABS: BASO % 0.6 % (0-2.0); EOS % 2.2 % (0-4.5); HEMATOCRIT 30.6 % (35.4-49); HEMOGLOBIN 10.4 GM/dL (11.7-16.9); LYMPH % 14.5 % (8-40); MCH 31.8 pg (25.7-33.7); MCHC 34.2 g/dl (32.0-35.9); MEAN CELL VOLUME 93.2 fl (80-96); MEAN PLT VOLUME 7.8 fl (7.5-11.1); MONO % 11.6 % (3.8-10.2); NEUT % 71.1 % (42.8-82.8); PLATELET COUNT 592 10^3/uL (134-434); RBC 3.28 M/mm3 (4.00-5.60); RDW 13.4 % (11.9-15.9); WHITE BLOOD COUNT 14.6 K/mm3 (4.0-10.0)
[2023-11-10 10:04] LABS: POTASSIUM 4.7 mmol/L (3.5-5.1)
[2023-11-10 10:14] LABS: ALBUMIN 2.2 g/dl (3.4-5.0); CALCIUM 8.7 mg/dL (8.5-10.1)
[2023-11-10 10:15] LABS: BLOOD UREA NITROGEN 17.4 mg/dL (7-18)
[2023-11-10 10:19] LABS: BILIRUBIN,TOTAL 0.5 mg/dL (0.2-1); TOT PROT 6.1 g/dl (6.4-8.2)
[2023-11-10] MEDS ORDERED: INSULIN ASPART SLIDING SCALE (NOVOLOG) 1 VIAL SQ ONE ×2 (11:26→11:27)
[2023-11-10] MEDS ORDERED: SODIUM CHLORIDE 1,000 ML IV SCH (16:15)
[2023-11-10] MEDS: SODIUM CHLORIDE 1,000 ML IV SCH (16:40)
[2023-11-11 10:01] LABS: BASO % 0.5 % (0-2.0); EOS % 2.4 % (0-4.5); HEMATOCRIT 31.1 % (35.4-49); HEMOGLOBIN 10.1 GM/dL (11.7-16.9); LYMPH % 11.2 % (8-40); MCH 30.7 pg (25.7-33.7); MCHC 32.6 g/dl (32.0-35.9); MEAN CELL VOLUME 94.3 fl (80-96); MEAN PLT VOLUME 7.5 fl (7.5-11.1); MONO % 10.9 % (3.8-10.2); PLATELET COUNT 573 10^3/uL (134-434); RDW 13.1 % (11.9-15.9); WHITE BLOOD COUNT 13.2 K/mm3 (4.0-10.0)
[2023-11-11 10:03] LABS: INR 1.19 (0.83-1.09); PROTHROMBIN TIME (PATIENT) 13.8 SEC (9.7-13.0)
[2023-11-11 10:19] LABS: POTASSIUM 5.1 mmol/L (3.5-5.1)
[2023-11-11 10:25] LABS: BLOOD UREA NITROGEN 14.9 mg/dL (7-18)
[2023-11-11 10:29] LABS: CREATININE 0.9 mg/dL (0.55-1.3)
[2023-11-11 10:31] LABS: CALCIUM 8.5 mg/dL (8.5-10.1)
[2023-11-11] MEDS ORDERED: LIDOCAINE HCL 1%, 10 MG/ML (20ML VIAL) ONE (12:27)
[2023-11-11] MEDS ORDERED: HEPARIN NA (PORCINE) 5,000 UNITS/ML 1ML VIAL ONE (12:27)
[2023-11-11] MEDS ORDERED: PROMETHAZINE HCL 25 MG/1 ML VIAL IVPB PRN ×2 (12:34→16:03)
[2023-11-11] MEDS ORDERED: ONDANSETRON 4 MG/2 ML VIAL IVPUSH PRN ×2 (12:34→16:03)
[2023-11-11] MEDS ORDERED: LACTATED RINGERS SOLUTION 1,000 ML IV SCH (12:45)
[2023-11-11] MEDS ORDERED: PROPOFOL 20 ML ONE (13:00)
[2023-11-11] MEDS ORDERED: MIDAZOLAM HCL 2 MG/2 ML SINGLE DOSE VIAL ONE (13:46)
[2023-11-11] MEDS: IOHEXOL 300 MG/ML INFUS..BTL IV ONE ×3 (14:01→14:03)
[2023-11-11] MEDS: LIDOCAINE HCL 1%, 10 MG/ML (20ML VIAL) INF ONE ×2 (14:01→14:03)
[2023-11-11] MEDS: HEPARIN NA (PORCINE) 5,000 UNITS/ML 1ML VIAL SQ ONE (14:06)
[2023-11-11] MEDS ORDERED: CLOPIDOGREL BISULFATE 75 MG TABLET (FP) ONE (16:05)
[2023-11-11] MEDS: CLOPIDOGREL BISULFATE 75 MG TABLET (FP) PO SCH (16:07)
[2023-11-11] MEDS: INSULIN ASPART SLIDING SCALE (NOVOLOG) 1 VIAL SQ SCH (16:51)
[2023-11-11] MEDS: INSULIN (NOVOLOG) ASPART 100 UNITS/ML 10ML VIAL SQ SCH (16:51)
[2023-11-11] MEDS: ACETAMINOPHEN 325 MG TABLET (FP) PO PRN (17:22)
[2023-11-11] MEDS: LACTATED RINGERS SOLUTION 1,000 ML IV SCH (17:22)
[2023-11-11] MEDS: MEROPENEM 1 GM in DEXTROSE 5%-WATER 100 ML IVPB SCH (17:23)
[2023-11-11] MEDS: ATORVASTATIN CA 40 MG TABLET (FP) PO SCH (21:36)
[2023-11-11] MEDS: POLYETHYLENE GLYCOL (HEALTHYLAX) 3350 17 GM PACKET PO SCH (21:36)
[2023-11-11] MEDS: SENNOSIDES 8.6MG TABLET (FP) PO SCH (21:36)
[2023-11-11] MEDS: MIRTAZAPINE 15 MG TABLET (FP) PO SCH (21:38)
[2023-11-11] MEDS: INSULIN (LEVEMIR) 100 UNITS/ML UNITS SQ SCH (21:40)
[2023-11-11] MEDS ORDERED: ICOSAPENT ETHYL PO SCH (22:00)
[2023-11-12] MEDS: TAMSULOSIN HCL 0.4 MG CAP PO SCH (09:12)
[2023-11-12] MEDS: LISINOPRIL 20 MG TABLET PO SCH (09:49)
[2023-11-12] MEDS: ASPIRIN COATED 81 MG TABLET.EC PO SCH (09:49)
[2023-11-12] MEDS: PANTOPRAZOLE 20 MG TABLET PO SCH (09:49)
[2023-11-12] MEDS: metoPROLOL SUCCINATE 25 MG TAB.SR.24H (FP) PO SCH (09:49)
[2023-11-12 10:06] LABS: BASO % 0.8 % (0-2.0); HEMATOCRIT 31.9 % (35.4-49); HEMOGLOBIN 10.5 GM/dL (11.7-16.9); LYMPH % 10.8 % (8-40); MCH 31.1 pg (25.7-33.7); MEAN CELL VOLUME 94.5 fl (80-96); MEAN PLT VOLUME 7.5 fl (7.5-11.1); MONO % 7.9 % (3.8-10.2); NEUT % 78.5 % (42.8-82.8); PLATELET COUNT 603 10^3/uL (134-434); RBC 3.37 M/mm3 (4.00-5.60); RDW 13.1 % (11.9-15.9); WHITE BLOOD COUNT 15.3 K/mm3 (4.0-10.0)
[2023-11-12 10:24] LABS: POTASSIUM 5.5 mmol/L (3.5-5.1)
[2023-11-12 10:31] LABS: ALBUMIN 2.4 g/dl (3.4-5.0); BLOOD UREA NITROGEN 16.9 mg/dL (7-18); PHOSPHOROUS 2.3 mg/dL (2.5-4.9)
[2023-11-12 10:32] LABS: BILIRUBIN,TOTAL 0.3 mg/dL (0.2-1); TOT PROT 6.5 g/dl (6.4-8.2)
[2023-11-12 10:33] LABS: CALCIUM 8.6 mg/dL (8.5-10.1)
[2023-11-12 10:34] LABS: MAGNESIUM 2.6 mg/dL (1.8-2.4)
[2023-11-12] MEDS: SODIUM PHOSPHATE - 15 MM in SODIUM CHLORIDE 250 ML IVPB ONE (17:14)
[2023-11-12] MEDS: NAPH,MB-DB/K PH,MBDB POWDER PACKET PO ONE (18:31)
[2023-11-12 21:14] LABS: BASO % 0.8 % (0-2.0); EOS % 1.8 % (0-4.5); LYMPH % 13.5 % (8-40); MCH 31.1 pg (25.7-33.7); MCHC 33.4 g/dl (32.0-35.9); MEAN PLT VOLUME 7.4 fl (7.5-11.1); MONO % 9.9 % (3.8-10.2); PLATELET COUNT 568 10^3/uL (134-434); RBC 3.23 M/mm3 (4.00-5.60); RDW 13.2 % (11.9-15.9); WHITE BLOOD COUNT 14.9 K/mm3 (4.0-10.0)
[2023-11-12] MEDS: SODIUM ZIRCONIUM CYCLOSILICATE (LOKELMA) 5 GM PACKET PO SCH (21:28)
[2023-11-12] MEDS: HEPARIN NA (PORCINE) 5,000 UNITS/ML 1ML VIAL SQ SCH (21:33)
[2023-11-13 11:25] LABS: BASO % 0.3 % (0-2.0); EOS % 2.1 % (0-4.5); HEMATOCRIT 31.6 % (35.4-49); HEMOGLOBIN 10.6 GM/dL (11.7-16.9); LYMPH % 12.6 % (8-40); MCH 31.4 pg (25.7-33.7); MCHC 33.6 g/dl (32.0-35.9); MEAN CELL VOLUME 93.7 fl (80-96); MEAN PLT VOLUME 7.2 fl (7.5-11.1); MONO % 9.8 % (3.8-10.2); NEUT % 75.2 % (42.8-82.8); PLATELET COUNT 632 10^3/uL (134-434); RBC 3.37 M/mm3 (4.00-5.60); RDW 13.6 % (11.9-15.9); WHITE BLOOD COUNT 13.7 K/mm3 (4.0-10.0)
[2023-11-13 11:46] LABS: POTASSIUM 5.7 mmol/L (3.5-5.1)
[2023-11-13 11:48] LABS: CALCIUM 8.8 mg/dL (8.5-10.1)
[2023-11-13 11:49] LABS: ALBUMIN 2.3 g/dl (3.4-5.0); BLOOD UREA NITROGEN 16.6 mg/dL (7-18)
[2023-11-13 11:54] LABS: BILIRUBIN,TOTAL 0.3 mg/dL (0.2-1); TOT PROT 6.3 g/dl (6.4-8.2)
[2023-11-13 11:55] LABS: CREATININE 1.1 mg/dL (0.55-1.3)
[2023-11-13] MEDS: ENOXAPARIN NA (PORCINE) 80 MG/0.8 ML DISP.SYRIN SQ SCH (19:00)
[2023-11-13] MEDS: SODIUM ZIRCONIUM CYCLOSILICATE (LOKELMA) 5 GM PACKET PO ONE (21:26)
[2023-11-13 21:31] LABS: CALCIUM 8.3 mg/dL (8.5-10.1)
[2023-11-13 21:32] LABS: BLOOD UREA NITROGEN 17.5 mg/dL (7-18)
[2023-11-13 21:33] LABS: POTASSIUM 5.3 mmol/L (3.5-5.1)
[2023-11-13 21:35] LABS: CREATININE 1.2 mg/dL (0.55-1.3)
[2023-11-13] MEDS: INSULIN (LEVEMIR) 100 UNITS/ML UNITS SQ SCH (21:50)
[2023-11-14] MEDS: ACETAMINOPHEN 1000 MG/100 ML BAG IVPB ONE (10:07)
[2023-11-14 10:20] LABS: HEMATOCRIT 32.6 % (35.4-49); HEMOGLOBIN 10.6 GM/dL (11.7-16.9); MCH 30.6 pg (25.7-33.7); MCHC 32.5 g/dl (32.0-35.9); MEAN PLT VOLUME 7.4 fl (7.5-11.1); PLATELET COUNT 692 10^3/uL (134-434); RBC 3.47 M/mm3 (4.00-5.60); RDW 13.4 % (11.9-15.9)
[2023-11-14 10:39] LABS: POTASSIUM 5.1 mmol/L (3.5-5.1)
[2023-11-14 10:43] LABS: BLOOD UREA NITROGEN 16.9 mg/dL (7-18); CALCIUM 8.9 mg/dL (8.5-10.1)
[2023-11-14 10:46] LABS: CREATININE 1.2 mg/dL (0.55-1.3); MAGNESIUM 2.6 mg/dL (1.8-2.4); PHOSPHOROUS 2.6 mg/dL (2.5-4.9)
[2023-11-15 09:12] LABS: INR 1.2 (0.83-1.09); PROTHROMBIN TIME (PATIENT) 13.9 SEC (9.7-13.0)
[2023-11-15 09:14] LABS: HEMATOCRIT 32.4 % (35.4-49); HEMOGLOBIN 10.7 GM/dL (11.7-16.9); MCH 31.1 pg (25.7-33.7); MCHC 33.1 g/dl (32.0-35.9); MEAN PLT VOLUME 7.3 fl (7.5-11.1); PLATELET COUNT 667 10^3/uL (134-434); RBC 3.45 M/mm3 (4.00-5.60); RDW 13.2 % (11.9-15.9); WHITE BLOOD COUNT 13.7 K/mm3 (4.0-10.0)
[2023-11-15 09:49] LABS: CALCIUM 9.3 mg/dL (8.5-10.1)
[2023-11-15 09:50] LABS: BLOOD UREA NITROGEN 19.1 mg/dL (7-18); MAGNESIUM 2.7 mg/dL (1.8-2.4)
[2023-11-15 09:53] LABS: CREATININE 1.1 mg/dL (0.55-1.3); PHOSPHOROUS 2.9 mg/dL (2.5-4.9)
[2023-11-15] MEDS: INSULIN REGULAR HUMAN 100 UNITS/ML *VIAL IVPUSH ONE (14:21)
[2023-11-15] MEDS: DEXTROSE 50%-WATER 25 GM/50 ML DISP.SYRIN IVPUSH ONE (14:21)
[2023-11-15] MEDS: CALCIUM GLUCONATE 10% - 1,000 MG/10 ML VIAL IVPB ONE (14:26)
[2023-11-15] MEDS: SODIUM ZIRCONIUM CYCLOSILICATE (LOKELMA) 5 GM PACKET PO SCH (14:26)
[2023-11-15] MEDS: ALBUTEROL SO4 0.083% IH SOL 2.5 MG/3 ML VIAL.NEB. NEB ONE (14:41)
[2023-11-15] MEDS ORDERED: INSULIN (LEVEMIR) 100 UNITS/ML UNITS SQ SCH (15:02)
[2023-11-15] MEDS: traMADol HCL 50 MG TABLET PO PRN (16:41)
[2023-11-15] MEDS: INSULIN REGULAR HUMAN 100 UNITS/ML *VIAL SQ ONE (16:54)
[2023-11-15 19:00] LABS: POTASSIUM 5.5 mmol/L (3.5-5.1)
[2023-11-15 19:01] LABS: CALCIUM 8.5 mg/dL (8.5-10.1)
[2023-11-15 19:05] LABS: CREATININE 1.2 mg/dL (0.55-1.3)
[2023-11-15] MEDS: INSULIN (LEVEMIR) 100 UNITS/ML UNITS SQ SCH (21:52)
[2023-11-16] MEDS: DEXTROSE 5%-0.45% SALINE 1,000 ML IV SCH (06:00)
[2023-11-16] MEDS ORDERED: VANCOMYCIN 1,000 MG VIAL (RESTRICTED TO ID ONLY) ONE ×2 (09:12→10:10)
[2023-11-16] MEDS ORDERED: LIDOCAINE HCL 1%, 10 MG/ML (20ML VIAL) ONE (09:12)
[2023-11-16] MEDS ORDERED: DEXAMETHASONE SOD PHOSPHATE 4 MG/1 ML VIAL ONE (09:13)
[2023-11-16] MEDS ORDERED: BUPIVACAINE HCL/PF 0.5% (5MG/ML) 10 ML VIAL ONE (09:13)
[2023-11-16] MEDS ORDERED: MIDAZOLAM HCL 2 MG/2 ML SINGLE DOSE VIAL ONE ×2 (10:00→10:21)
[2023-11-16] MEDS ORDERED: PROPOFOL 20 ML ONE (10:00)
[2023-11-16] MEDS: MEROPENEM 1 GM VIAL (RESTRICTED TO ID) IVPB ONE (10:10)
[2023-11-16] MEDS: BUPIVACAINE HCL/PF 0.5% (5 MG/ML) 30 ML VIAL IJ ONE ×2 (10:16)
[2023-11-16] MEDS: LIDOCAINE HCL 1%, 10 MG/ML (20ML VIAL) INF ONE ×2 (10:16)
[2023-11-16] MEDS: GENTAMICIN SO4 80 MG/2 ML VIAL IVPB ONE (10:25)
[2023-11-16] MEDS ORDERED: GENTAMICIN SO4 80 MG/2 ML VIAL ONE (10:45)
[2023-11-16] MEDS ORDERED: ONDANSETRON 4 MG/2 ML VIAL IVPUSH PRN ×2 (11:40→11:46)
[2023-11-16] MEDS ORDERED: SODIUM CHLORIDE 1,000 ML IV SCH (11:45)
[2023-11-16] MEDS: SODIUM CHLORIDE 1,000 ML IV SCH (12:00)
[2023-11-16 13:10] LABS: BASO % 0.7 % (0-2.0); EOS % 0.8 % (0-4.5); HEMATOCRIT 31.8 % (35.4-49); HEMOGLOBIN 10.6 GM/dL (11.7-16.9); MCH 31.1 pg (25.7-33.7); MCHC 33.2 g/dl (32.0-35.9); MEAN CELL VOLUME 93.6 fl (80-96); MEAN PLT VOLUME 6.9 fl (7.5-11.1); MONO % 5.6 % (3.8-10.2); NEUT % 82.9 % (42.8-82.8); PLATELET COUNT 709 10^3/uL (134-434); RDW 13.7 % (11.9-15.9); WHITE BLOOD COUNT 14.1 K/mm3 (4.0-10.0)
[2023-11-16 13:32] LABS: POTASSIUM 4.9 mmol/L (3.5-5.1)
[2023-11-16 13:34] LABS: ALBUMIN 2.6 g/dl (3.4-5.0); BLOOD UREA NITROGEN 18.8 mg/dL (7-18); CALCIUM 8.4 mg/dL (8.5-10.1)
[2023-11-16 13:39] LABS: BILIRUBIN,TOTAL 0.6 mg/dL (0.2-1); TOT PROT 6.6 g/dl (6.4-8.2)
[2023-11-16] MEDS: traMADol HCL 50 MG TABLET PO PRN (16:58)
[2023-11-16] MEDS: INSULIN ASPART SLIDING SCALE (NOVOLOG) 1 VIAL SQ SCH (17:13)
[2023-11-16] MEDS: MEROPENEM 1 GM in DEXTROSE 5%-WATER 100 ML IVPB SCH (17:13)
[2023-11-16] MEDS: ATORVASTATIN CA 40 MG TABLET (FP) PO SCH (21:29)
[2023-11-16] MEDS: SENNOSIDES 8.6MG TABLET (FP) PO SCH (21:29)
[2023-11-16] MEDS: MIRTAZAPINE 15 MG TABLET (FP) PO SCH (21:29)
[2023-11-16] MEDS: POLYETHYLENE GLYCOL (HEALTHYLAX) 3350 17 GM PACKET PO SCH (21:29)
[2023-11-16] MEDS: INSULIN (LEVEMIR) 100 UNITS/ML UNITS SQ SCH (21:35)
[2023-11-16] MEDS: ACETAMINOPHEN 325 MG TABLET (FP) PO PRN (23:32)
[2023-11-17] MEDS: TAMSULOSIN HCL 0.4 MG CAP PO SCH (08:40)
[2023-11-17 08:56] LABS: HEMOGLOBIN 9.7 GM/dL (11.7-16.9); MCH 31.2 pg (25.7-33.7); MCHC 33.3 g/dl (32.0-35.9); MEAN CELL VOLUME 93.6 fl (80-96); MEAN PLT VOLUME 7.2 fl (7.5-11.1); PLATELET COUNT 676 10^3/uL (134-434); RDW 13.4 % (11.9-15.9); WHITE BLOOD COUNT 13.3 K/mm3 (4.0-10.0)
[2023-11-17 09:14] LABS: POTASSIUM 5.6 mmol/L (3.5-5.1)
[2023-11-17] MEDS: DEXTROSE 5%-0.45% SALINE 1,000 ML IV SCH (09:15)
[2023-11-17 09:16] LABS: CALCIUM 8.7 mg/dL (8.5-10.1)
[2023-11-17 09:17] LABS: BLOOD UREA NITROGEN 22.4 mg/dL (7-18)
[2023-11-17] MEDS: metoPROLOL SUCCINATE 25 MG TAB.SR.24H (FP) PO SCH (09:17)
[2023-11-17] MEDS: PANTOPRAZOLE 20 MG TABLET PO SCH (09:17)
[2023-11-17 09:20] LABS: CREATININE 1.1 mg/dL (0.55-1.3)
[2023-11-17] MEDS: SODIUM ZIRCONIUM CYCLOSILICATE (LOKELMA) 5 GM PACKET PO SCH (11:09)
[2023-11-17] MEDS: CEPHALEXIN MONOHYDRATE 500 MG CAPSULE (UD) PO SCH (17:15)
[2023-11-18 09:57] LABS: HEMATOCRIT 30.6 % (35.4-49); MCH 30.7 pg (25.7-33.7); MCHC 32.7 g/dl (32.0-35.9); MEAN CELL VOLUME 93.9 fl (80-96); MEAN PLT VOLUME 7.1 fl (7.5-11.1); PLATELET COUNT 727 10^3/uL (134-434); RBC 3.26 M/mm3 (4.00-5.60); RDW 13.3 % (11.9-15.9); WHITE BLOOD COUNT 14.1 K/mm3 (4.0-10.0)
[2023-11-18 11:50] LABS: CALCIUM 9.3 mg/dL (8.5-10.1)
[2023-11-18 11:51] LABS: BLOOD UREA NITROGEN 17.6 mg/dL (7-18); MAGNESIUM 2.5 mg/dL (1.8-2.4)
[2023-11-18 11:54] LABS: CREATININE 1.1 mg/dL (0.55-1.3); PHOSPHOROUS 2.5 mg/dL (2.5-4.9)
[2023-11-18] MEDS: CALCIUM GLUCONATE IN NACL 1 GM/50 ML BAG IVPB ONE (12:45)
[2023-11-18] MEDS: INSULIN REGULAR HUMAN 100 UNITS/ML *VIAL IVPUSH ONE (12:46)
[2023-11-18] MEDS: DEXTROSE 50%-WATER 25 GM/50 ML DISP.SYRIN IVPUSH ONE (12:47)
[2023-11-18] MEDS: ALBUTEROL SO4 0.083% IH SOL 2.5 MG/3 ML VIAL.NEB. NEB ONE (12:55)
[2023-11-18] MEDS ORDERED: INSULIN (LEVEMIR) 100 UNITS/ML UNITS SQ SCH (13:06)
[2023-11-18] MEDS: INSULIN (NOVOLOG) ASPART 100 UNITS/ML 10ML VIAL SQ SCH (16:30)
[2023-11-18] MEDS ORDERED: INSULIN (NOVOLOG) ASPART 100 UNITS/ML 10ML VIAL SQ SCH (16:30)
[2023-11-18 18:03] LABS: POTASSIUM 5.6 mmol/L (3.5-5.1)
[2023-11-18 18:04] LABS: CALCIUM 9.5 mg/dL (8.5-10.1)
[2023-11-18 18:05] LABS: BLOOD UREA NITROGEN 17.5 mg/dL (7-18)
[2023-11-18 18:08] LABS: CREATININE 1.1 mg/dL (0.55-1.3)
[2023-11-18] MEDS: SODIUM ZIRCONIUM CYCLOSILICATE (LOKELMA) 10 GM PACKET PO SCH (22:16)
[2023-11-18] MEDS: INSULIN (LEVEMIR) 100 UNITS/ML UNITS SQ SCH (22:24)
[2023-11-19] MEDS: EMPAGLIFLOZIN (JARDIANCE) 25 MG TABLET PO SCH (09:48)
[2023-11-19 09:58] VITALS: RESP 18
[2023-11-19 10:15] LABS: HEMATOCRIT 31.3 % (35.4-49); HEMOGLOBIN 10.2 GM/dL (11.7-16.9); MCH 30.7 pg (25.7-33.7); MCHC 32.6 g/dl (32.0-35.9); MEAN CELL VOLUME 94.3 fl (80-96); MEAN PLT VOLUME 6.9 fl (7.5-11.1); PLATELET COUNT 745 10^3/uL (134-434); RBC 3.32 M/mm3 (4.00-5.60); RDW 13.7 % (11.9-15.9); WHITE BLOOD COUNT 14.2 K/mm3 (4.0-10.0)
[2023-11-19 10:41] LABS: POTASSIUM 5.6 mmol/L (3.5-5.1)
[2023-11-19 10:48] LABS: CALCIUM 8.8 mg/dL (8.5-10.1)
[2023-11-19 10:52] LABS: CREATININE 1.1 mg/dL (0.55-1.3)
[2023-11-19 16:19] VITALS: BMI 25.1
[2023-11-19] MEDS: FUROSEMIDE 40 MG TABLET (FP) PO ONE (16:41)
[2023-11-19] MEDS: SODIUM CHLORIDE 0.45% 1,000 ML IV SCH (16:43)
[2023-11-20 10:16] LABS: POTASSIUM 5.4 mmol/L (3.5-5.1)
[2023-11-20 10:19] LABS: CALCIUM 8.5 mg/dL (8.5-10.1)
[2023-11-20 10:20] LABS: ALBUMIN 2.4 g/dl (3.4-5.0); BLOOD UREA NITROGEN 22.8 mg/dL (7-18)
[2023-11-20 10:23] LABS: CREATININE 1.2 mg/dL (0.55-1.3)
[2023-11-20 10:25] LABS: BILIRUBIN,TOTAL 0.8 mg/dL (0.2-1); TOT PROT 6.4 g/dl (6.4-8.2)
[2023-11-20 10:52] VITALS: BP 122/77; PULSE 88; TEMP 98.8
== END 2023-11-20 16:08 | disposition home or self-care (01) | DRG 853 ==
LOC: JER 18:34 → JERBED 21:37 → J6S 11-03 08:33
PROVIDERS: ADMIT Internal Medicine; ATTEND Internal Medicine
PROC: 0QTP0ZZ Resection of Left Metatarsal, Open Approach (ICD-10-PCS; 2023-11-05)
PROC: 0J9R0ZZ Drainage of Left Foot Subcutaneous Tissue and Fascia, Open Approach (ICD-10-PCS; 2023-11-05)
PROC: 3E05317 Introduction of Other Thrombolytic into Peripheral Artery, Percutaneous Approach (ICD-10-PCS; 2023-11-11)
PROC: 047S3ZZ Dilation of Left Posterior Tibial Artery, Percutaneous Approach (ICD-10-PCS; principal; 2023-11-11 13:00)
PROC: 0Y6S0Z0 Detachment at Left 2nd Toe, Complete, Open Approach (ICD-10-PCS; 2023-11-16)
PROC: 0Y6U0Z0 Detachment at Left 3rd Toe, Complete, Open Approach (ICD-10-PCS; 2023-11-16)
PROC: 0Y6W0Z0 Detachment at Left 4th Toe, Complete, Open Approach (ICD-10-PCS; 2023-11-16)
PROC: 0Y6Y0Z0 Detachment at Left 5th Toe, Complete, Open Approach (ICD-10-PCS; 2023-11-16)
DX: A40.9 Streptococcal sepsis, unspecified (principal); J18.9 Pneumonia, unspecified organism; L03.116 Cellulitis of left lower limb; L97.929 Non-pressure chronic ulcer of unspecified part of left lower leg with unspecified severity; I96 Gangrene, not elsewhere classified; N17.9 Acute kidney failure, unspecified; E87.1 Hypo-osmolality and hyponatremia; M86.172 Other acute osteomyelitis, left ankle and foot; M86.9 Osteomyelitis, unspecified; E11.69 Type 2 diabetes mellitus with other specified complication; E11.65 Type 2 diabetes mellitus with hyperglycemia; E11.621 Type 2 diabetes mellitus with foot ulcer; I70.202 Unspecified atherosclerosis of native arteries of extremities, left leg; E87.5 Hyperkalemia; E78.5 Hyperlipidemia, unspecified; K21.9 Gastro-esophageal reflux disease without esophagitis; N40.0 Benign prostatic hyperplasia without lower urinary tract symptoms; K59.00 Constipation, unspecified; E83.39 Other disorders of phosphorus metabolism; G47.00 Insomnia, unspecified
CPT/HCPCS: 0241U-QW; 36415; 71045-TC-FY; 73610-TC-LT-FY; 73630-TC-LT; 73718-TC-LT; 75635-TC; 76000-TC-FY; 76775-TC; 80048; 80053; 81003; 82010; 82272; 82550; 82553; 82728; 82803; 82962; 83036; 83540; 83550; 83605; 83735; 83880; 83930; 83935; 84100; 84133; 84484; 85025; 85027; 85610; 85651; 85730; 86140; 86850; 86900; 86901; 87040; 87070; 87077; 87086; 87205; 87389; 87899; 88305-TC; 88311-TC; 93005; 93010; 94640; 94760; 97116-GP; 97161-GP; 99291; 99292; C1725; C1760; C1769; C1897; J0131; J1644; Q9967

== ENCOUNTER 2024-08-17 15:46 | Emergency (ER) | payer OTHER ==
[2024-08-17 15:52] VITALS: BP 181/84; PULSE 79; RESP 18; TEMP 97.5; BMI 24.3
[2024-08-17] MEDS: SODIUM CHLORIDE 1,000 ML IV STA (17:42)
[2024-08-17 18:04] LABS: VENOUS BASE EXCESS -2.7 mmol/L (-2-2); VENOUS O2 SATURATION 97.9 % (70-80); VENOUS PCO2 35.3 mmHg (38-52); VENOUS PH 7.401 (7.310-7.410)
[2024-08-17 18:04] LABS: BASO % 0.9 % (0-2.0); EOS % 1.6 % (0-4.5); HEMOGLOBIN 13.4 GM/dL (11.7-16.9); LYMPH % 19.3 % (8-40); MCH 31.4 pg (25.7-33.7); MCHC 33.6 g/dl (32.0-35.9); MEAN CELL VOLUME 93.5 fl (80-96); MEAN PLT VOLUME 8.5 fl (7.5-11.1); MONO % 8.9 % (3.8-10.2); NEUT % 69.3 % (42.8-82.8); PLATELET COUNT 295 10^3/uL (134-434); RBC 4.28 M/mm3 (4.00-5.60); RDW 13.6 % (11.9-15.9); WHITE BLOOD COUNT 9.2 K/mm3 (4.0-10.0)
[2024-08-17 18:25] LABS: CALCIUM 9.4 mg/dL (8.5-10.1)
[2024-08-17 18:26] LABS: ALBUMIN 3.7 g/dl (3.4-5.0); BLOOD UREA NITROGEN 35.4 mg/dL (7-18)
[2024-08-17 18:29] LABS: CREATININE 1.3 mg/dL (0.55-1.3)
[2024-08-17 18:31] LABS: TOT PROT 7.1 g/dl (6.4-8.2)
[2024-08-17 19:20] LABS: HIV INTERPRETATION NEGATIVE (NEGATIVE)
[2024-08-17] MEDS: INSULIN (NOVOLOG) ASPART 100 UNITS/ML 10ML VIAL SQ ONE (19:37)
== END 2024-08-17 20:44 | disposition home or self-care (01) ==
LOC: JER 15:46
DX: E11.65 Type 2 diabetes mellitus with hyperglycemia (principal); Z20.822 Contact with and (suspected) exposure to COVID-19
CPT/HCPCS: 0241U-QW; 36415; 80053; 82010; 82803; 82962; 85025; 86803; 87389; 93005; 93010; 99284-25